=== PATIENT | male | born 1975 | race Caucasian/White ===

== ENCOUNTER 2018-01-10 08:57 | Emergency (ER) | payer OTHER, MEDICAID, SELFPAY ==
[2018-01-10 10:03] VITALS: BP 160/93; PULSE 96; RESP 16; TEMP 36.8; O2SAT 99
--- NOTE | 2018-01-10 10:27 | ED.LOWEXIN ---
HPI - Extremity Injury (Lower) General Chief Complaint: Extremity Injury, Lower Stated Complaint: left foot pain Time Seen by Provider: 01/10/18 10:03 Source: patient Mode of arrival: ambulatory Limitations: no limitations History of Present Illness HPI Narrative: Patient is a 42-year-old male who presents with left foot pain. He denies any injury. Says the arch of his foot starts hurting and pain goes up to his knee. He denies any Achilles tendon pain. His he does take prednisone 10 mg once a day. He normally wear supportive shoes but currently wearing cardiac. No numbness or tingling but sometimes he says his feet get numb. He denies any diabetes. Related Data Home Medications Medication Instructions Recorded Confirmed atorvastatin [Lipitor] 20 mg PO QDAY #0 07/17/17 potassium chloride [Klor-Con 8] 10 meq PO QDAY #0 07/17/17 prednisone 5 mg PO #0 07/17/17 tofacitinib [Xeljanz] 11 mg #0 07/17/17 prednisone 5 mg PO QDAY #0 08/21/17 atenolol 25 mg PO Q DAY #0 10/05/17 Previous Rx's Medication Instructions Recorded lisinopril 40 mg PO QDAY #30 tab 11/04/16 metoprolol tartrate 25 mg PO Q DAY #30 tab 05/18/17 ondansetron [Zofran ODT] 4 mg SUBLINGUAL Q6HP PRN #20 odt 08/22/17 meloxicam 7.5 mg PO DAILY #7 tab 01/10/18 Allergies Allergy/AdvReac Type Severity Reaction Status Date / Time adhesive [ADHESIVE] Allergy Mild Unverified 11/05/17 12:05 aspirin [ASPIRIN] Allergy Unknown Unverified 11/05/17 12:05 Review of Systems Review of Systems GENERAL: Denies chills,fever HEENT: Denies throat pain RESPIRATORY: Denies dyspnea, cough, wheezing CARDIOVASCULAR: Denies chest pain, palpitations GASTROINTESTINAL: Denies nausea, vomiting MUSCULOSKELETAL: Left foot pain as per HPI SKIN: No rash, no laceration, no pruritus NEUROLOGIC: Denies weakness, dizziness, headache, numbness 8 point review of systems is negative except for those stated above and HPI All systems reviewed & are unremarkable except as noted in HPI and below [facility] History Status post tonsillectomy and adenoidectomy Exam Initial Vital Signs Initial Vital Signs: Vital Signs Temperature 98.3 F 01/10/18 10:03 Pulse Rate 96 H 01/10/18 10:03 Respiratory Rate 16 01/10/18 10:03 Blood Pressure 160/93 H 01/10/18 10:03 Pulse Oximetry 99 01/10/18 10:03 GENERAL: Well-appearing, well-nourished and in no acute distress. CARDIOVASCULAR: peripheral pulses in tact, cap refill <2 sec RESPIRATORY: No respiratory distress, speaks in full sentences without difficulty EXTREMITIES: Normal range of motion, no clubbing or edema. Neurovascularly intact -left foot has no gross bony deformities. And the arch of the foot it is tender to touch. Achilles tendon is intact minimally tender to touch good flexion-extension of foot distal pedal pulse intact. NEUROLOGICAL: Cranial nerves II through XII grossly intact. Normal gait and speech. SKIN: Warm, dry, no petechiae, no rashes or lesions. Course Orders Ordered: Discontinued Medications Ketorolac Tromethamine (Toradol) 60 mg IM NOW ONE Stop: 01/10/18 10:27 Last Admin: 01/10/18 10:49 Dose: 60 mg Vital Signs - 8 hr 01/10/18 10:03 01/10/18 11:07 Temperature 98.3 F Pulse Rate 96 H 91 H Respiratory Rate 16 16 Blood Pressure 160/93 H Blood Pressure [Left Arm] 151/80 H Pulse Oximetry 99 99 Discharge Plan Departure Patient Disposition: Home, Self-Care Clinical Impression: Plantar fasciitis, left Discharge Date/Time: 01/10/18 11:24 Interventions: ED Discharge Assessment Last Done: 01/10/18 11:24 Instructions: DI for Plantar Fasciitis Activity Restrictions/Additional Instructions: *You have been diagnosed with left foot plantar fasciae *What to do: The increase activity recommend ruling foot with attendant wall to help loosen up the fascia *Continue to take medications as directed -Mobic of 1 pill once a day for 1 week *Follow up with your primary care provider in 2-3 days *Return to ER if you should have any new, worsening or concerning symptoms Prescriptions: New meloxicam 7.5 mg tablet 7.5 mg PO DAILY Qty: 7 RF: 0 No Action lisinopril 40 MG tablet 40 mg PO QDAY Qty: 30 RF: 0 metoprolol tartrate 25 MG tablet 25 mg PO Q DAY Qty: 30 RF: 0 atorvastatin [Lipitor] 20 MG tablet 20 mg PO QDAY Qty: 0 RF: 0 tofacitinib [Xeljanz] 5 MG tablet 11 mg Qty: 0 RF: 0 prednisone 5 MG tablet 5 mg PO Qty: 0 RF: 0 potassium chloride [Klor-Con 8] 8 MEQ tablet extended release 10 meq PO QDAY Qty: 0 RF: 0 prednisone 5 MG tablet 5 mg PO QDAY Qty: 0 RF: 0 ondansetron [Zofran ODT] 4 MG tablet,disintegrating 4 mg Sublingual Q6HP PRNQty: 20 RF: 0 atenolol 25 MG tablet 25 mg PO Q DAY Qty: 0 RF: 0
[2018-01-10] MEDS: KETOROLAC 60 MG/2 ML VIAL IM (10:49)
[2018-01-10 11:07] VITALS: BP 151/80; PULSE 91; RESP 16; O2SAT 99
== END 2018-01-10 11:24 | disposition home or self-care (01) ==
PROVIDERS: Emergency Provider Emergency Medicine; Family Provider Family Medicine; PCP Family Medicine
DX: M72.2 Plantar fascial fibromatosis (principal)
CPT/HCPCS: 96372; 99282; 99283; J1885

== ENCOUNTER 2018-04-19 18:56 | Emergency (ER) | payer OTHER, MEDICAID, SELFPAY ==
[2018-04-19] MEDS: ACTIVATED CHARCOAL 50 GM/240 ML PO (19:00)
[2018-04-19] MEDS: SODIUM CHLORIDE 0.9% 1,000 ML 150 ML IV (19:15)
[2018-04-19 19:22] LABS: Add Manual Diff / Slide Review NO; Basophils Percent Auto 0.5 % (0-2); Hematocrit 50.1 % (41-53); Hemoglobin 16.9 g/dL (13.5-17.5); Lymphocytes Percent Auto 17.9 % (25-40); Mean Corpuscular HGB Conc 33.8 % (30-36); Mean Corpuscular Volume 100.6 fL (80-100); Monocytes Percent Auto 7.6 % (3-14); Neutrophils Absolute Auto 3700 /uL (3000-5900); Platelet Count 235 X10^3/uL (150-400); Red Blood Cell Count 4.98 X10^6/uL (4.5-5.9); Red Cell Distribution Width 15.5 % (11.6-14.8); White Blood Cell Count 6.1 X10^3/uL (4.5-11.0)
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
[2018-04-19 19:34] LABS: Acetaminophen < 10 ug/mL (10-30); Alanine Aminotransferase 31 IU/L (21-72); Albumin 4.6 g/dL (3.5-5.0); Albumin Globulin Ratio 1.3 (1.0-2.8); Alkaline Phosphatase 90 U/L (38-126); Aspartate Aminotransferase 42 IU/L (17-59); Bilirubin Total 1.4 mg/dL (0.2-1.3); Blood Urea Nitrogen 9 mg/dL (9-20); Calcium 9.5 mg/dL (8.4-10.2); Carbon Dioxide 27 mmol/L (22-32); Chloride 104 mmol/L (98-107); Creatine Kinase 232 U/L (55-170); Estimated Glomerular Filt Rate > 60.0 mL/min (>60); Ethanol (ETOH) < 10 mg/dL; Globulin 3.6 g/dL (1.7-4.1); Glucose 133 mg/dL (70-100); HEMOLYSIS < 15 (0-50); Lipase 108 U/L (23-300); Potassium 3.8 mmol/L (3.4-5.1); Sodium 143 mmol/L (137-145); Total Protein 8.2 g/dL (6.3-8.2)
[2018-04-19 19:38] LABS: Salicylate < 1.0 mg/dL (<20)
[2018-04-19 19:45] LABS: Troponin I < 0.012 ng/mL (0.01-0.034)
[2018-04-19 19:46] VITALS: BP 157/94; PULSE 86; RESP 15; O2SAT 96
[2018-04-19 19:50] LABS: CKMB % Relative Index 1.2 % (1.5-5.0); Creatine Kinase MB 2.69 ng/mL (<2.37)
[2018-04-19 20:46] VITALS: BP 107/67; PULSE 66; RESP 16; O2SAT 95
[2018-04-19 21:00] VITALS: BP 104/62; PULSE 65; RESP 16; O2SAT 95
[2018-04-19] MEDS: ONDANSETRON 4 MG/2 ML INJ IV (21:03)
[2018-04-19 21:26] VITALS: TEMP 36.5
[2018-04-19 21:30] VITALS: BP 110/70; PULSE 62; RESP 18; O2SAT 94
[2018-04-19 23:00] VITALS: BP 93/66; PULSE 71; RESP 20; O2SAT 93
[2018-04-20 01:36] VITALS: BP 124/70; PULSE 65; RESP 15; TEMP 37.1; O2SAT 98
== END 2018-04-20 01:41 | disposition home or self-care (01) ==
PROVIDERS: Emergency Provider Emergency Medicine; Family Provider Family Medicine; PCP Family Medicine
DX: T44.7X2A Poisoning by beta-adrenoreceptor antagonists, intentional self-harm, initial encounter (principal)
CPT/HCPCS: 36591; 80053; 80076; 80320; 80329; 82550; 82553; 83605; 83690; 84484; 85025; 93005; 96361; 96374; 99285; 99291; G0480; J2405

== ENCOUNTER → 2018-07-03 15:00 | Outpatient (CLI) | payer OTHER, MEDICAID, SELFPAY ==
[2018-07-03 16:19] LABS: Urine Amphetamines Negative (Negative); Urine Barbiturates Negative (Negative); Urine Benzodiazepines Negative (Negative); Urine Cocaine Negative (Negative); Urine MDMA Negative (Negative); Urine Methadone Negative (Negative); Urine Methamphetamines Negative (Negative); Urine Morphine/Opi cutoff 2000 Negative (Negative); Urine Oxycodone Negative (Negative); Urine Phencyclidine Negative (Negative); Urine Tetrahydrocannabinol Negative (Negative); Urine Tricyclic Antidepressant Positive (Negative)
== END ==
PROVIDERS: Family Provider Family Medicine; PCP Family Medicine; Visit Provider Specialist/Technologist Athletic Trainer
DX: M05.79 Rheumatoid arthritis with rheumatoid factor of multiple sites without organ or systems involvement (principal); G89.4 Chronic pain syndrome
CPT/HCPCS: 36415; 80305

== ENCOUNTER 2018-07-31 09:44 | Emergency (ER) | payer OTHER, MEDICAID, SELFPAY ==
[2018-07-31 09:47] VITALS: BP 140/97; PULSE 92; RESP 14; TEMP 36.4; O2SAT 96; BMI 38.0
[2018-07-31] MEDS: ONDANSETRON 4 MG/2 ML INJ IV (10:16)
[2018-07-31] MEDS: SODIUM CHLORIDE 0.9% 1,000 ML 1000 ML IV (10:16)
--- NOTE | 2018-07-31 10:29 | ED_ITS ---
HPI - Headache General Chief Complaint: Headache Stated Complaint: migraine Time Seen by Provider: 07/31/18 10:13 Source: patient and old records reviewed Mode of arrival: ambulatory Limitations: no limitations History of Present Illness HPI Narrative: This is a 43-year-old male who comes to the emergency department with complaint of migraine. Patient states he has a history of migraines. He states they were worse in his 20s has been somewhat improved in his 30s but today is more like the migraines he had in his 20s. He states in the could a left posterior and then radiates to the left side of the head towards the face. Patient states he woke up within overnight. He has had nausea and some vomiting. He did take him Zofran at home as well as trying to take his arthritis medications without any success. Patient has not any fevers, no cold cough or congestion. He is not having any new weakness or loss of sensation. No chest pain, no shortness of breath. He is not having any other gastrointestinal issues. Patient states Imitrex has been helpful in the past but he believes he is not supposed to take that as it is supposed interfere with his regular medications. Related Data Home Medications Medication Instructions Recorded Confirmed leflunomide 20 mg PO QPM 04/19/18 07/31/18 levothyroxine 150 mcg PO QPM 04/19/18 07/31/18 potassium chloride 10 meq PO QPM 04/19/18 07/31/18 quetiapine 75 mg PO DAILY 04/19/18 07/31/18 sulfasalazine 1 g PO BID 04/19/18 07/31/18 adalimumab [Humira Pen] 40 mg Q2W 07/31/18 07/31/18 atorvastatin 20 mg PO QPM 07/31/18 07/31/18 furosemide 40 mg PO QPM 07/31/18 07/31/18 gabapentin 1,200 mg PO QPM 07/31/18 07/31/18 lisinopril 40 mg PO QPM 07/31/18 07/31/18 metoprolol tartrate 50 mg PO QPM 07/31/18 07/31/18 tramadol 100 mg PO BID 07/31/18 07/31/18 Allergies Allergy/AdvReac Type Severity Reaction Status Date / Time atenolol Allergy Severe Anaphylaxis Verified 07/31/18 09:52 tocilizumab [From Actemra] Allergy Severe Anaphylaxis Verified 07/31/18 09:52 adhesive [ADHESIVE] Allergy Mild Verified 04/19/18 19:55 aspirin [ASPIRIN] AdvReac Unknown Verified 07/31/18 09:52 sumatriptan [From Imitrex] AdvReac Unknown Verified 07/31/18 09:52 Review of Systems Review of Systems All systems reviewed & are unremarkable except as noted in HPI and below Constitutional Denies chills, Denies fever(s), Reports headache(s), Denies lethargy and Denies weakness Eyes Reports photophobia ENT Ears, Nose, Mouth, and Throat: Denies dizziness, Reports headache(s), Denies neck pain and Denies other (Facial droop) Cardiovascular Denies chest pain, Denies lightheadedness, Denies dyspnea and Denies dyspnea on exertion Respiratory Denies chest congestion, Denies cough, Denies dyspnea, Denies dyspnea on exertion and Denies wheezing Gastrointestinal Gastrointestinal: Denies abdominal pain, Denies change in bowel habits, Denies diarrhea, Reports nausea and Reports vomiting Genitourinary Denies difficulty urinating and Denies urinary incontinence Musculoskeletal Denies abnormal gait, Denies neck pain and Denies tingling Integumentary/Breasts Denies rash Neurologic Reports as per HPI, Denies abnormal speech, Denies abnormal gait, Denies confusion, Denies dizziness, Reports headache(s), Denies focal weakness, Denies tingling, Denies paresthesias and Denies weakness Psychiatric Denies confusion Allergic/Immunologic Denies wheezing PFSH Medical History Hypertension (Acute) Migraines (Chronic) Rheumatoid arthritis (Chronic) Surgical History Status post tonsillectomy and adenoidectomy Social History marital status: Smoking Status: Former smoker alcohol intake: current substance use type: does not use Exam Narrative Exam Narrative: GEN: well nourished, well appearing male, alert and oriented x 3 , patient appears to be in moderate distress. Patient is wearing sunglasses in a dark room when I arrive. HEENT: Atraumatic, pupils are equal round reactive to light, extraocular movements are intact, positive for mild photophobia, nares are clear, TMs are clear with no fluid, there is no conjunctival pallor. Throat is clear without any exudates, erythema, tonsillar enlargement or uvular deviation, no facial droop. HEART: Regular rate and rhythm without murmur, clicks, rubs. LUNGS:Lungs clear to auscultation, no wheezes, rales, crackles, chest moves symmetrically ABD:bowel sounds normal, soft, non-tender, no guarding, rebound, rigidity, no masses noted, no hepatosplenomegaly MSCL: Non-tender, no muscle atrophy, muscles strength 5/5 upper and lower extremities, full range of motion, normal gait NEURO:CN 2-12 intact, sensation normal, reflexes 2/4 upper and lower extremities. Normal speech. Initial Vital Signs Initial Vital Signs: Vital Signs Temperature 97.6 F 07/31/18 09:47 Pulse Rate 92 H 07/31/18 09:47 Respiratory Rate 14 07/31/18 09:47 Blood Pressure 140/97 H 07/31/18 09:47 Pulse Oximetry 96 07/31/18 09:47 Course Orders Ordered: Discontinued Medications Sodium Chloride (Normal Saline 0.9%) 1,000 mls @ 1,000 mls/hr IV BOLUS ONE Stop: 07/31/18 11:13 Last Infusion: 07/31/18 12:15 Dose: 0 mls/hr Admin: 07/31/18 10:16 Dose: 1,000 mls/hr Ketorolac Tromethamine (Toradol) 30 mg IV NOW ONE Stop: 07/31/18 10:23 Last Admin: 07/31/18 11:17 Dose: 30 mg Metoclopramide HCl (Reglan) 10 mg IV NOW ONE Stop: 07/31/18 11:44 Last Admin: 07/31/18 11:50 Dose: 10 mg Ondansetron HCl (Zofran) 4 mg IV NOW ONE Stop: 07/31/18 10:15 Last Admin: 07/31/18 10:16 Dose: 4 mg Vital Signs - 8 hr 07/31/18 12:56 Pulse Rate 77 Respiratory Rate 15 Blood Pressure [Right Arm] 128/64 Pulse Oximetry 96 MDM - Headache MDM Narrative Medical decision making narrative: Patient has a history of migraines, states this was more severe than his recent but is similar to when his 20s. Patient has some diastolic pressure is slightly elevated 97. He normally takes blood pressure medication. He states he was not able to take his regular medications secondary to nausea and vomiting. Patient states that he response to Imitrex. Patient given IV fluids, Zofran and Toradol he had some improvement but still has some headache present. Discussed trying some Reglan IV. Um afterwards patient states this was very helpful his pain is a 2/10 and he would like to return home. Discharge Plan Departure Patient Disposition: Home Clinical Impression: Migraine Discharge Date/Time: 07/31/18 13:02 Interventions: ED Discharge Assessment Last Done: 07/31/18 13:01 Instructions: DI for Migraine Activity Restrictions/Additional Instructions: Follow-up with your primary care physician in the next 5-7 days for recheck. Continue her home medications as prescribed. Return to the emergency department for worsening symptoms, sudden speech, vision , new weakness, numbness. If you're having sudden severe headaches, persistent vomiting, signs of dehydration, passing out or other new or concerning symptoms. Prescriptions: No Action quetiapine 25 mg Tablet 75 mg PO DAILY RF: 0 sulfasalazine 500 mg Tablet 1 g PO BID RF: 0 potassium chloride 10 mEq Tablet Extended Release 10 meq PO QPM RF: 0 leflunomide 20 mg Tablet 20 mg PO QPM RF: 0 levothyroxine 150 mcg Tablet 150 mcg PO QPM RF: 0 furosemide 40 mg tablet 40 mg PO QPM RF: 0 gabapentin 600 mg tablet 1,200 mg PO QPM RF: 0 atorvastatin 20 mg tablet 20 mg PO QPM RF: 0 tramadol 50 mg tablet 100 mg PO BID RF: 0 adalimumab [Humira Pen] 40 mg/0.4 mL pen injector kit 40 mg Q2W RF: 0 lisinopril 40 MG tablet 40 mg PO QPM RF: 0 metoprolol tartrate 25 MG tablet 50 mg PO QPM RF: 0
[2018-07-31] MEDS: KETOROLAC 60 MG/2 ML VIAL 30 MG IV (11:17)
[2018-07-31] MEDS: METOCLOPRAMIDE 10 MG/2 ML INJ IV (11:50)
[2018-07-31 12:56] VITALS: BP 128/64; PULSE 77; RESP 15; O2SAT 96
== END 2018-07-31 13:02 | disposition home or self-care (01) ==
PROVIDERS: Emergency Provider Emergency Medicine; Family Provider Family Medicine; PCP Family Medicine
DX: G43.909 Migraine, unspecified, not intractable, without status migrainosus (principal)
CPT/HCPCS: 36591; 96361; 96374; 96375; 99283; 99284; J1885; J2405; J2765

== ENCOUNTER → 2019-03-24 11:13 | Outpatient (CLI) | payer OTHER, MEDICAID, SELFPAY ==
[2019-03-24 11:27] LABS: Bacteria Urine None Seen; RBC Urine None Seen (0-5/HPF)
[2019-03-24 12:17] LABS: Appearance Urine UA CLEAR; Bilirubin Urine UA NEGATIVE (NEGATIVE); Glucose Urine UA NEGATIVE (Negative); Ketones Urine UA NEGATIVE (NEGATIVE); Leukocyte Esterase Urine UA NEGATIVE (NEGATIVE); Nitrite Urine UA NEGATIVE (Negative); Occult Blood Urine UA NEGATIVE (Negative); Protein Urine UA NEGATIVE (Negative); Urobilinogen Urine UA 0.2 E.U./dL (0.2); pH Urine UA 6.5 (4.5-8.0)
[2019-03-24 12:23] LABS: Color Urine UA Amber
[2019-03-24 12:36] LABS: Alanine Aminotransferase 26 IU/L (21-72); Albumin 4.1 g/dL (3.5-5.0); Albumin Globulin Ratio 1.3 (1.0-2.8); Alkaline Phosphatase 78 U/L (38-126); Aspartate Aminotransferase 39 IU/L (17-59); Bilirubin Total 0.9 mg/dL (0.2-1.3); Blood Urea Nitrogen 17 mg/dL (9-20); Calcium 9.1 mg/dL (8.4-10.2); Carbon Dioxide 26 mmol/L (22-32); Chloride 103 mmol/L (98-107); Estimated Glomerular Filt Rate > 60.0 mL/min (>60); Globulin 3.2 g/dL (1.7-4.1); Glucose 98 mg/dL (70-100); HEMOLYSIS < 15 (0-50); Potassium 3.8 mmol/L (3.4-5.1); Sodium 138 mmol/L (137-145); Total Protein 7.3 g/dL (6.3-8.2)
[2019-03-24 12:52] LABS: Culture Indicated Urine Cult Not Indicated; Mucus Urine 1+ (Negative); WBC Urine 0-1/HPF (0-5/HPF)
[2019-03-24 13:41] LABS: Lithium < 0.2 mmol/L (0.6-1.2)
[2019-03-27 15:19] LABS: PSA Total 0.44 ng/mL (< 4.01)
== END ==
PROVIDERS: PCP Family Medicine; Visit Provider Family Medicine
DX: R34 Anuria and oliguria (principal); R60.9 Edema, unspecified; G89.4 Chronic pain syndrome; F31.9 Bipolar disorder, unspecified
CPT/HCPCS: 36415; 80053; 80178; 81001; 84153; 84154

== ENCOUNTER → 2019-04-20 07:08 | Outpatient (CLI) | payer OTHER, MEDICAID, SELFPAY ==
[2019-04-20 08:49] LABS: Lithium < 0.2 mmol/L (0.6-1.2)
== END ==
PROVIDERS: PCP Family Medicine; Visit Provider Family Medicine
DX: F31.9 Bipolar disorder, unspecified (principal)
CPT/HCPCS: 36415; 80178

== ENCOUNTER → 2019-08-02 16:17 | Outpatient (CLI) | payer OTHER, MEDICAID, SELFPAY ==
[2019-08-02 17:49] LABS: BUN Creatinine Ratio 12.2 (6-22); Blood Urea Nitrogen 11 mg/dL (9-20); Calcium 9.4 mg/dL (8.4-10.2); Carbon Dioxide 30 mmol/L (22-32); Chloride 104 mmol/L (98-107); Estimated Glomerular Filt Rate > 60.0 mL/min (>60); Glucose 80 mg/dL (70-100); HEMOLYSIS < 15 (0-50); Sodium 140 mmol/L (137-145)
[2019-08-02 18:12] LABS: Lithium < 0.2 mmol/L (0.6-1.2)
== END ==
PROVIDERS: PCP Family Medicine; Visit Provider Family Medicine
DX: F31.9 Bipolar disorder, unspecified (principal)
CPT/HCPCS: 36415; 80048; 80178

== ENCOUNTER 2019-08-30 09:01 | Emergency (ER) | payer OTHER, MEDICAID, SELFPAY ==
[2019-08-30 09:13] VITALS: BP 163/90; PULSE 111; RESP 18; TEMP 36.3; O2SAT 97; BMI 41.8
[2019-08-30 11:00] VITALS: PULSE 80
--- NOTE | 2019-08-30 11:15 | DI.RAD.S_ITS ---
PROCEDURE: XR FOOT LT MIN 3V INDICATIONS: Left foot pain TECHNIQUE: 3 views of the foot were acquired. COMPARISON: None. FINDINGS: Bones: No fractures or dislocations. No suspicious bony lesions. Soft tissues: No tibiotalar joint effusion. Achilles tendon appears normal. IMPRESSION: Source of pain is not identified. Dictated by: Mateo Eason M.D. on 08/30/2019 at 12:05 Approved by: Mateo Eason M.D. on 08/30/2019 at 12:08
[2019-08-30] MEDS: KETOROLAC 60 MG/2 ML VIAL 30 MG IM (11:21)
--- NOTE | 2019-08-30 11:26 | ED_ITS ---
HPI - Extremity Problem <Marie JosephDAVID - Last Filed: 08/30/19 13:57> General Chief complaint: Extremity Problem,Nontraumatic Stated complaint: left foot pain Time Seen by Provider: 08/30/19 10:56 Source: patient and family Mode of arrival: Wheelchair History of Present Illness HPI Narrative: 44yo male with a history of rheumatoid arthritis, osteoarthritis, and chronic pain, patient presents to emergency department complaining of left foot pain. He states this started yesterday and felt a sharp stabbing pain on the bottom of his foot and his arch, he states this pain radiates up to his knee occasionally. The pain is worse with movement and weight-bearing, patient denies any alleviating factors. Patient states he took tramadol, gabapentin, and prednisone 20mg to help alleviate the pain this morning, but this did not help. Patient denies any trauma to the area, he denies any twisting or falls. Patient denies any previous injury to his foot. Patient denies redness, sores, fevers, chills, knee pain, nausea, vomiting, diarrhea, dizziness, chest pain, or shortness of breath. He denies any history of blood clots. He denies any calf pain. Related Data Home Medications Medication Instructions Recorded Confirmed leflunomide 20 mg PO QPM 04/19/18 08/30/19 levothyroxine 150 mcg PO QPM 04/19/18 08/30/19 potassium chloride 10 meq PO QPM 04/19/18 08/30/19 sulfasalazine 500 mg PO 6XD 04/19/18 08/30/19 adalimumab [Humira Pen] 40 mg Q2W 07/31/18 08/30/19 atorvastatin 20 mg PO QPM 07/31/18 08/30/19 furosemide 40 mg PO QPM 07/31/18 08/30/19 lisinopril 40 mg PO QPM 07/31/18 08/30/19 metoprolol tartrate 50 mg PO QPM 07/31/18 08/30/19 tramadol 100 mg PO TID 07/31/18 08/30/19 lithium carbonate 150 mg PO BID 08/30/19 08/30/19 pregabalin 200 mg PO BID 08/30/19 08/30/19 quetiapine 300 mg PO DAILY 08/30/19 08/30/19 trazodone 50 mg PO DAILY 08/30/19 08/30/19 Previous Rx's Medication Instructions Recorded prednisone 40 mg PO DAILY 5 Days #10 tab 08/30/19 Allergies Allergy/AdvReac Type Severity Reaction Status Date / Time atenolol Allergy Severe Anaphylaxis Verified 08/30/19 09:13 tocilizumab [From Actemra] Allergy Severe Anaphylaxis Verified 08/30/19 09:13 adhesive [ADHESIVE] Allergy Mild Verified 08/30/19 09:13 aspirin [ASPIRIN] AdvReac Unknown Verified 08/30/19 09:13 sumatriptan [From Imitrex] AdvReac Unknown Verified 08/30/19 09:13 Review of Systems <DAVID Cortes - Last Filed: 08/30/19 13:57> Review of Systems Narrative: REVIEW OF SYSTEMS: GENERAL: Denies fever or chills. HENT: No head trauma. EYES: No double vision or vision loss. CARDIOVASCULAR: No chest pain or syncope. RESPIRATORY: No shortness of breath or cough. GASTROINTESTINAL: No nausea, vomiting, diarrhea, or constipation. GENITOURINARY: No flank pain or dysuria. MUSCULOSKELETAL: Complains of left foot pain, see HPI. INTEGUMENTARY: No rash, lesions, or pruritus. NEURO: No numbness, tingling. PSYCH: No behavior or mood changes. Patient History <DAVID Cortes - Last Filed: 08/30/19 13:57> Medical History Hypertension (Acute) Migraines (Chronic) Rheumatoid arthritis (Chronic) Surgical History Status post tonsillectomy and adenoidectomy Social History marital status: Smoking Status: Former smoker alcohol intake: current substance use type: does not use Smoking Status: Former smoker alcohol intake frequency: 0-2 drinks per day Substance Use Type: does not use Exam <DAVID Cortes - Last Filed: 08/30/19 13:57> Initial Vital Signs Initial Vital Signs: Vital Signs Temperature 97.4 F L 08/30/19 09:13 Pulse Rate 111 H 08/30/19 09:13 Respiratory Rate 18 08/30/19 09:13 Blood Pressure 163/90 H 08/30/19 09:13 Pulse Oximetry 97 08/30/19 09:13 PHYSICAL EXAMINATION: GENERAL: Well groomed, alert, and cooperative. Answers questions promptly and appropriately. Vital signs noted. HENT: Normocephalic, atraumatic. EYES: Symmetrical, sclera white, no periorbital swelling. CARDIOVASCULAR: S1 and S2 sounds normal. Regular rate and rhythm, no murmurs, clicks, or bruits. No pedal edema. RESPIRATORY: Normal respiratory rate, trachea midline, airway patent. No stridor, nasal flaring or accessory muscle use. Lungs are clear in all harper. MUSCULOSKELETAL: Tenderness to palpation of plantar aspect of left arch of foot. No erythema, ecchymosis, or lesions. Very minute amount of swelling noted to the top of left foot, this area slightly tender to palpation. No calf tenderness, no tibia or knee tenderness. Full range of motion of ankle, equal dorsiflexion and plantar flexion to both feet bilaterally. Normal gait and coordination. Equal tone and mass bilaterally. EXTREMITIES: CMS intact. Pedal pulses 2+ and intact bilaterally. 1+ nonpitting edema noted to both lower extremities bilaterally. SKIN: Warm, dry, soft, appropriate color for ethnicity. No lesions, rashes, or wounds. NEURO: Alert and Oriented X 3. No sensory deficits. PSYCH: Appropriate affect and mood. <Yanira Lopez DO - Last Filed: 08/31/19 13:09> Initial Vital Signs Initial Vital Signs: Vital Signs Temperature 97.4 F L 08/30/19 09:13 Pulse Rate 111 H 08/30/19 09:13 Respiratory Rate 18 08/30/19 09:13 Blood Pressure 163/90 H 08/30/19 09:13 Pulse Oximetry 97 08/30/19 09:13 Scores <DAVID Cortes - Last Filed: 08/30/19 13:57> Wells' Criteria for DVT Active Cancer (Treatment within 6 months): No Bedridden recently >3 days or major surgery within 4 weeks: No Calf Swelling >3cm compared to other leg: No Collateral (nonvericose) superficial veins present: No Entire leg swollen: No Localized tenderness along the deep vein system: No Pitting edema, confined to symtomatic leg: No Paralysis, paresis, or recent plaster immobilization of ext: No Previously documented DVT: No Alternative dx to DVT as likely or more likely: No Wells' criteria for DVT: 0 Course <DAVID Cortes - Last Filed: 08/30/19 13:57> Course Course Narrative: X-ray was taken to rule out bony abnormalities. Toradol was given to help with pain. Orders Ordered: Discontinued Medications Ketorolac Tromethamine (Toradol) 30 mg IM NOW ONE Stop: 08/30/19 11:08 Last Admin: 08/30/19 11:21 Dose: 30 mg Documented by: MARYCARMEN Consultations Consultation #1: Staffed with Dr. Lopez. Vital Signs Vital signs: Vital Signs - 8 hr 08/30/19 09:13 08/30/19 11:00 08/30/19 11:29 Temperature 97.4 F L Pulse Rate 111 H 88 Pulse Rate [Left Dorsalis Pedis] 80 Respiratory Rate 18 18 Blood Pressure 163/90 H Blood Pressure [Left Arm] 152/78 H Pulse Oximetry 97 98 08/30/19 12:32 Temperature Pulse Rate 82 Pulse Rate [Left Dorsalis Pedis] Respiratory Rate 19 Blood Pressure Blood Pressure [Left Arm] 152/80 H Pulse Oximetry 96 <Yanira Lopez DO - Last Filed: 08/31/19 13:09> Orders Ordered: Discontinued Medications Ketorolac Tromethamine (Toradol) 30 mg IM NOW ONE Stop: 08/30/19 11:08 Last Admin: 08/30/19 11:21 Dose: 30 mg Documented by: MARYCARMEN Vital Signs Vital signs: Vital Signs - 8 hr 08/30/19 09:13 08/30/19 11:00 08/30/19 11:29 Temperature 97.4 F L Pulse Rate 111 H 88 Pulse Rate [Left Dorsalis Pedis] 80 Respiratory Rate 18 18 Blood Pressure 163/90 H Blood Pressure [Left Arm] 152/78 H Pulse Oximetry 97 98 08/30/19 12:32 Temperature Pulse Rate 82 Pulse Rate [Left Dorsalis Pedis] Respiratory Rate 19 Blood Pressure Blood Pressure [Left Arm] 152/80 H Pulse Oximetry 96 MDM - Extremity (Nontraumatic) <DAVID Cortes - Last Filed: 08/30/19 13:57> Medical Records Attestation: I reviewed the patient's medical records. Lab Data Attestation: I reviewed the patient's lab results. Imaging Data Extremity x-ray #1: Radiologist's Impression: Sarah MANSOOR [id number] XRay Report Signed Patient: Cristian Lloyd [facility]#: [id number] : 1975Acct:[id number] Age/Sex: 44 / MDate of Service: 08/30/19 Loc: ED Accession Number: [id number] Procedure: XR foot LT min 3V Ordering Provider: Marie Joseph PROCEDURE: XR FOOT LT MIN 3V INDICATIONS: Left foot pain TECHNIQUE: 3 views of the foot were acquired. COMPARISON: None. FINDINGS: Bones: No fractures or dislocations. No suspicious bony lesions. Soft tissues: No tibiotalar joint effusion. Achilles tendon appears normal. IMPRESSION: Source of pain is not identified. Dictated by: Mateo Eason M.D. on 08/30/2019 at 12:05 Approved by: Mateo Eason M.D. on 08/30/2019 at 12:08 [facility] Narrative Medical decision making narrative: 44-year-old male with a history of RA presenting for pain in the bottom of his left foot, very minor swelling noted to the top of his foot. X-rays negative for any fractures. Differential includes peripheral neuropathy versus a start of an RA exacerbation. Less likely cellulitis due to lack of erythema or swelling, less likely DVT due to low risk factors, no history of DVT, lack of calf pain, lack of significant swelling, less likely strain due to lack of reported trauma or falls. Patient was given a higher dose of prednisone for the next 5 days to help with symptoms. Patient was encouraged follow up with his primary care provider in the next 1-2 weeks for further evaluation and discussion of pain management. Strict return precautions given for new or worsening symptoms. Patient agreed with plan of care and verbalized understanding. Patient requested more pain medication, we had discussion regarding lack of significant changes and increased side effects and danger of mixing multiple medications. He was encouraged to continue taking his tramadol and gabapentin as prescribed. Discharge Plan Departure Patient Disposition: Home Clinical Impression: Acute pain of left foot Discharge Date/Time: 08/30/19 12:35 Instructions: DI for Rheumatoid Arthritis Activity Restrictions/Additional Instructions: Thank you for entrusting me with your care today. As discussed, your x-ray is negative. I suspect this may be the beginning of a rheumatoid arthritis flare. I prescribed you prednisone, please take this for the next few days, this was sent to [facility] in [place]. Schedule an appointment with a banquet director in the next 1-2 weeks for further evaluation. Return emergency department for any worsening symptoms such as increased redness, severe swelling, calf pain, shortness of breath, dizziness, high fevers, or other concerns. Prescriptions: New prednisone 20 mg tablet 40 mg PO DAILY 5 Days Qty: 10 RF: 0 No Action sulfasalazine 500 mg Tablet 500 mg PO 6XD RF: 0 potassium chloride 10 mEq Tablet Extended Release 10 meq PO QPM RF: 0 leflunomide 20 mg Tablet 20 mg PO QPM RF: 0 levothyroxine 150 mcg Tablet 150 mcg PO QPM RF: 0 furosemide 40 mg tablet 40 mg PO QPM RF: 0 atorvastatin 20 mg tablet 20 mg PO QPM RF: 0 tramadol 50 mg tablet 100 mg PO TID RF: 0 Humira Pen 40 mg/0.4 mL pen injector kit 40 mg Q2W RF: 0 lisinopril 40 MG tablet 40 mg PO QPM RF: 0 metoprolol tartrate 25 MG tablet 50 mg PO QPM RF: 0 trazodone 50 mg tablet 50 mg PO DAILY RF: 0 quetiapine 100 mg tablet 300 mg PO DAILY RF: 0 lithium carbonate 150 mg capsule 150 mg PO BID RF: 0 pregabalin 200 mg capsule 200 mg PO BID RF: 0 Referrals: Remington Izaguirre [Primary Care Provider] - Stand Alone Forms: Work Release Note
[2019-08-30 11:29] VITALS: BP 152/78; PULSE 88; RESP 18; O2SAT 98
[2019-08-30 12:32] VITALS: BP 152/80; PULSE 82; RESP 19; O2SAT 96
== END 2019-08-30 12:35 | disposition home or self-care (01) ==
PROVIDERS: Emergency Provider Nurse Practitioner; PCP Family Medicine
DX: M79.672 Pain in left foot (principal)
CPT/HCPCS: 73630; 96372; 99283; J1885

== ENCOUNTER 2019-10-24 14:01 | Emergency (ER) | payer OTHER, MEDICAID, SELFPAY ==
[2019-10-24 14:32] VITALS: BP 137/64; PULSE 73; RESP 18; TEMP 36.5; O2SAT 95
--- NOTE | 2019-10-24 14:47 | ED.EXTPRO ---
HPI - Extremity Problem <aMrie JosephDAVID - Last Filed: 10/24/19 15:48> General Chief complaint: Extremity Problem,Nontraumatic Stated complaint: right hip pain Time Seen by Provider: 10/24/19 14:04 Source: patient and family Mode of arrival: Family Vehicle Limitations: no limitations History of Present Illness HPI Narrative: 44yo male with a history of RA, spinal stenosis, and chronic back pain, presents to the ED complaining of right hip/sciatica pain that started 2 days ago. He states he woke 2 days ago noticed a sharp stabbing pain that started in his buttocks and radiated down the outside of his leg past his knee. He states the pain was a 7-9/10 as worse with movement and weight-bearing at times. Patient states I took two oxycodone which did not help today. He states that he takes Humira as well. Patient also states ?Toradol does not work on me ?. Patient denies any other symptoms such as numbness, tingling, decreased range of motion, trauma, redness, swelling, nausea, vomiting, diarrhea, chest pain, shortness of breath, fevers, or any other concerns. He states ?this does not feel like an RA episode. Related Data Home Medications Medication Instructions Recorded Confirmed leflunomide 20 mg PO QPM 04/19/18 08/30/19 levothyroxine 150 mcg PO QPM 04/19/18 08/30/19 potassium chloride 10 meq PO QPM 04/19/18 08/30/19 sulfasalazine 500 mg PO 6XD 04/19/18 08/30/19 adalimumab [Humira Pen] 40 mg Q2W 07/31/18 08/30/19 atorvastatin 20 mg PO QPM 07/31/18 08/30/19 furosemide 40 mg PO QPM 07/31/18 08/30/19 lisinopril 40 mg PO QPM 07/31/18 08/30/19 metoprolol tartrate 50 mg PO QPM 07/31/18 08/30/19 tramadol 100 mg PO TID 07/31/18 08/30/19 lithium carbonate 150 mg PO BID 08/30/19 08/30/19 pregabalin 200 mg PO BID 08/30/19 08/30/19 quetiapine 300 mg PO DAILY 08/30/19 08/30/19 trazodone 50 mg PO DAILY 08/30/19 08/30/19 Previous Rx's Medication Instructions Recorded cyclobenzaprine 10 mg PO BID #25 tab 10/24/19 prednisone 50 mg PO DAILY 5 Days #5 tab 10/24/19 Allergies Allergy/AdvReac Type Severity Reaction Status Date / Time atenolol Allergy Severe Anaphylaxis Verified 10/24/19 14:37 tocilizumab [From Actemra] Allergy Severe Anaphylaxis Verified 10/24/19 14:37 adhesive [ADHESIVE] Allergy Mild Verified 10/24/19 14:37 aspirin [ASPIRIN] AdvReac Unknown Verified 10/24/19 14:37 sumatriptan [From Imitrex] AdvReac Unknown Verified 10/24/19 14:37 Review of Systems <DAVID Cortes - Last Filed: 10/24/19 15:48> Review of Systems Narrative: REVIEW OF SYSTEMS: GENERAL: Denies fever or chills. HENT: No head trauma. EYES: No double vision or vision loss. CARDIOVASCULAR: No chest pain or syncope. RESPIRATORY: No shortness of breath or cough. GASTROINTESTINAL: No nausea, vomiting, diarrhea, or constipation. GENITOURINARY: No flank pain or dysuria. MUSCULOSKELETAL: Complains of right hip/buttock pain, see HPI. INTEGUMENTARY: No rash, lesions, or pruritus. NEURO: No numbness, tingling. PSYCH: No behavior or mood changes. Patient History <DAVID Cortes - Last Filed: 10/24/19 15:48> Medical History Hypertension (Acute) Migraines (Chronic) Rheumatoid arthritis (Chronic) Surgical History Status post tonsillectomy and adenoidectomy Social History marital status: Smoking Status: Former smoker alcohol intake: current substance use type: does not use Smoking Status: Former smoker alcohol intake frequency: 0-2 drinks per day Substance Use Type: does not use Exam <DAVID Cortes - Last Filed: 10/24/19 15:48> Initial Vital Signs Initial Vital Signs: Vital Signs Temperature 97.7 F 10/24/19 14:32 Pulse Rate 73 10/24/19 14:32 Respiratory Rate 18 10/24/19 14:32 Blood Pressure 137/64 10/24/19 14:32 Pulse Oximetry 95 10/24/19 14:32 PHYSICAL EXAMINATION: GENERAL: Well groomed, alert, and cooperative. Answers questions promptly and appropriately. Vital signs noted. HENT: Normocephalic, atraumatic. EYES: Symmetrical, sclera white, no periorbital swelling. CARDIOVASCULAR: S1 and S2 sounds normal. Regular rate and rhythm, no murmurs, clicks, or bruits. No pedal edema. RESPIRATORY: Normal respiratory rate, trachea midline, airway patent. No stridor, nasal flaring or accessory muscle use. Lungs are clear in all harper. MUSCULOSKELETAL: Tenderness to left sciatica pain, positive straight leg test, increased pain with movement. No erythema, swelling, increased temp, or tenderness. Normal gait and coordination. Equal tone and mass bilaterally. No spinal tenderness or deformities. EXTREMITIES: CMS intact. No pedal edema. SKIN: Warm, dry, soft, appropriate color for ethnicity. No lesions, rashes, or wounds. NEURO: Alert and Oriented X 3. No sensory deficits. PSYCH: Appropriate affect and mood. <Sang Albright MD - Last Filed: 10/24/19 19:20> Initial Vital Signs Initial Vital Signs: Vital Signs Temperature 97.7 F 10/24/19 14:32 Pulse Rate 73 10/24/19 14:32 Respiratory Rate 18 10/24/19 14:32 Blood Pressure 137/64 10/24/19 14:32 Pulse Oximetry 95 10/24/19 14:32 Course <DAVID Cortes - Last Filed: 10/24/19 15:48> Vital Signs Vital signs: Vital Signs - 8 hr 10/24/19 14:32 Temperature 97.7 F Pulse Rate 73 Respiratory Rate 18 Blood Pressure 137/64 Pulse Oximetry 95 <Sang Albright MD - Last Filed: 10/24/19 19:20> Vital Signs Vital signs: Vital Signs - 8 hr 10/24/19 14:32 Temperature 97.7 F Pulse Rate 73 Respiratory Rate 18 Blood Pressure 137/64 Pulse Oximetry 95 MDM - Extremity (Nontraumatic) <DAVID Cortes - Last Filed: 10/24/19 15:48> Medical Records Attestation: I reviewed the patient's medical records. Lab Data Attestation: I reviewed the patient's lab results. [facility] Narrative Medical decision making narrative: 44yo male with a history of multiple spinal issues, chronic back pain, and RA presenting to the emergency department for what appears to be right sided sciatica as patient exhibits tenderness over the sciatic region, worsening pain with straight leg raise, and reports of a ?sharp shooting pain ?. I discussed with patient options to treat sciatica. We collectively decided on a burst of prednisone to help with inflammation and nerve irritation. He is also given muscle relaxers. Patient was counseled extensively to avoid using narcotics and muscle relaxers at the same time due to respiratory depression. He was encouraged to follow up with his street roller engineer in the next week for further evaluation and discussion of pain management. Less likely septic joint due to the fact the patient continues to have adequate range of motion, no swelling, redness, increased tenderness, or fevers. Less likely RA exacerbation as patient states this feels different, patient reports sharp shooting pain versus dull aching, lack of swelling or erythema, and area of tenderness. Less likely fracture due to lack of trauma, ability to bear weight, and location of pain. Strict return precautions given and follow-up instructions discussed. Patient agreed to plan of care verbalized understanding. Discharge Plan Departure Patient Disposition: Home Clinical Impression: Sciatica Qualifiers: Laterality: right Qualified Code(s): M54.31 - Sciatica, right side Discharge Date/Time: 10/24/19 14:53 Instructions: DI for Sciatica Activity Restrictions/Additional Instructions: Thank you for entrusting me with your care today. As discussed, your pain is most likely due to irritation from your sciatica nerve. I have given you a prednisone burst, please take this as directed. I have also given you a muscle relaxer, this can cause sedation, do not drive while using this medication. Follow-up with your street roller engineer in the next 1-2 weeks for further evaluation continue discussion about treatment. Remember, there is a fine line between too little and too much activity for this condition. Please use heat, ice, and gentle stretches as well. Return emergency department for any new or worsening symptoms such as high fevers, severe abdominal pain, uncontrollable vomiting, shortness of breath, chest pain, or any other concerns. Prescriptions: New prednisone 50 mg tablet 50 mg PO DAILY 5 Days Qty: 5 RF: 0 cyclobenzaprine 10 mg tablet 10 mg PO BID Qty: 25 RF: 0 No Action sulfasalazine 500 mg Tablet 500 mg PO 6XD RF: 0 potassium chloride 10 mEq Tablet Extended Release 10 meq PO QPM RF: 0 leflunomide 20 mg Tablet 20 mg PO QPM RF: 0 levothyroxine 150 mcg Tablet 150 mcg PO QPM RF: 0 furosemide 40 mg tablet 40 mg PO QPM RF: 0 atorvastatin 20 mg tablet 20 mg PO QPM RF: 0 tramadol 50 mg tablet 100 mg PO TID RF: 0 Humira Pen 40 mg/0.4 mL pen injector kit 40 mg Q2W RF: 0 lisinopril 40 MG tablet 40 mg PO QPM RF: 0 metoprolol tartrate 25 MG tablet 50 mg PO QPM RF: 0 trazodone 50 mg tablet 50 mg PO DAILY RF: 0 quetiapine 100 mg tablet 300 mg PO DAILY RF: 0 lithium carbonate 150 mg capsule 150 mg PO BID RF: 0 pregabalin 200 mg capsule 200 mg PO BID RF: 0 Referrals: Remington Izaguirre [Primary Care Provider] -
== END 2019-10-24 14:53 | disposition home or self-care (01) ==
PROVIDERS: Emergency Provider Nurse Practitioner; PCP Family Medicine
DX: M54.31 Sciatica, right side (principal)
CPT/HCPCS: 99281

== ENCOUNTER 2019-10-26 11:43 | Emergency (ER) | payer OTHER, MEDICAID, SELFPAY ==
[2019-10-26 11:54] VITALS: BP 146/93; PULSE 90; RESP 13; TEMP 36.6; O2SAT 98
--- NOTE | 2019-10-26 11:54 | DI.RAD.S_ITS ---
PROCEDURE: XR LUMBAR SPINE 2-3V INDICATIONS: pain TECHNIQUE: 3 views of the lumbar spine were acquired. COMPARISON: [facility], CR, XR LUMBAR SPINE WITH OBLIQUES, 09/02/2019, 10:41. FINDINGS: Bones: There are 5 lumbar-type vertebral bodies. The lowest intervertebral disk space is designated as L5-S1. The vertebral body heights are well-maintained without evidence to suggest an acute compression fracture. The bone mineralization is within normal limits. Mild degenerative changes of the lumbar spine are identified in the more prominent involving the lower lumbar facet joints, unchanged. Scattered small anterior disc osteophyte complexes are present. Alignment of the lumbar spine is unchanged. Soft tissues: The soft tissues of the imaged abdomen and pelvis are within normal limits. IMPRESSION: Mild degenerative changes of the lumbar spine. No displaced fractures. Dictated by: Wayne Santos M.D. on 10/26/2019 at 11:23 Approved by: Wayne Santos M.D. on 10/26/2019 at 11:32
--- NOTE | 2019-10-26 11:54 | DI.RAD.S_ITS ---
PROCEDURE: XR PELVIS 1-2V INDICATIONS: right hip pain TECHNIQUE: 1 view(s) of the pelvis acquired. COMPARISON: [facility], CT, CT ABDOMEN PELVIS WITH CONTRAST, 09/21/2017, 2:23. FINDINGS: Bones: No displaced fractures or dislocations. No suspicious bony lesions. Mild degenerative changes are present. Soft tissues: Visualized bowel gas pattern is normal. No suspicious soft tissue calcifications. IMPRESSION: 1. No displaced pelvic fractures are evident. 2. Mild degenerative changes of the hips. Dictated by: Wayne Santos M.D. on 10/26/2019 at 11:33 Approved by: Wayne Santos M.D. on 10/26/2019 at 11:34
[2019-10-26] MEDS: CYCLOBENZAPRINE 10 MG TABLET PO (12:20)
[2019-10-26] MEDS: LIDOCAINE PATCH 1 EACH ADH..PATCH TOP (12:20)
[2019-10-26] MEDS: KETOROLAC 60 MG/2 ML VIAL IM (12:20)
[2019-10-26 12:53] VITALS: BP 160/76; PULSE 77; RESP 16; O2SAT 98
--- NOTE | 2019-10-26 12:53 | ED_ITS ---
HPI - Extremity Problem <Georgina GauthierDAGOP-BC - Last Filed: 10/26/19 15:29> General Chief complaint: Extremity Problem,Nontraumatic Stated complaint: EXCRUTIATING PAIN Time Seen by Provider: 10/26/19 11:48 Source: patient and family Mode of arrival: Wheelchair Limitations: no limitations History of Present Illness HPI Narrative: Former smoker who presents with a chief complaint of excruciating back pain. He was seen and evaluated at this facility on 10/24/2027 diagnosis sciatica. He states he took his prednisone and muscle relaxers as instructed, and states he is still in 10/10 pain. He states that he drink 9 glasses of wine last night in order to help sleep. He states he is using his tramadol that he has prescribed for other reasons. He denies any incontinence of bowel, inco ntinence of bladder, saddle anesthesia numbness or tingling. He states he has not followed up with primary care provider since his visit a few days ago. Patient states that he took tramadol at approximately 6:00 a.m., nothing else today. Related Data Home Medications Medication Instructions Recorded Confirmed leflunomide 20 mg PO QPM 04/19/18 08/30/19 levothyroxine 150 mcg PO QPM 04/19/18 08/30/19 potassium chloride 10 meq PO QPM 04/19/18 08/30/19 sulfasalazine 500 mg PO 6XD 04/19/18 08/30/19 adalimumab [Humira Pen] 40 mg Q2W 07/31/18 08/30/19 atorvastatin 20 mg PO QPM 07/31/18 08/30/19 furosemide 40 mg PO QPM 07/31/18 08/30/19 lisinopril 40 mg PO QPM 07/31/18 08/30/19 metoprolol tartrate 50 mg PO QPM 07/31/18 08/30/19 tramadol 100 mg PO TID 07/31/18 08/30/19 lithium carbonate 150 mg PO BID 08/30/19 08/30/19 pregabalin 200 mg PO BID 08/30/19 08/30/19 quetiapine 300 mg PO DAILY 08/30/19 08/30/19 trazodone 50 mg PO DAILY 08/30/19 08/30/19 Previous Rx's Medication Instructions Recorded cyclobenzaprine 10 mg PO BID #25 tab 10/24/19 prednisone 50 mg PO DAILY 5 Days #5 tab 10/24/19 hydrocodone-acetaminophen 1 tab PO Q4-6H PRN #10 tab 10/26/19 ketorolac 10 mg PO TID PRN 5 Days tab 10/26/19 lidocaine 1 patch TOP DAILY PRN #15 each 10/26/19 Allergies Allergy/AdvReac Type Severity Reaction Status Date / Time atenolol Allergy Severe Anaphylaxis Verified 10/24/19 14:37 tocilizumab [From Actemra] Allergy Severe Anaphylaxis Verified 10/24/19 14:37 adhesive [ADHESIVE] Allergy Mild Verified 10/24/19 14:37 aspirin [ASPIRIN] AdvReac Unknown Verified 10/24/19 14:37 sumatriptan [From Imitrex] AdvReac Unknown Verified 10/24/19 14:37 Review of Systems <PATRICIO Mccann - Last Filed: 10/26/19 15:29> Review of Systems Narrative: GENERAL: Denies chills, fatigue, malaise, fever, sweats. HEENT: Denies sinus pain, ear pain, sore throat, difficulty swallowing, dizziness. RESPIRATORY: Denies dyspnea, cough, wheezing, hemoptysis, sputum. CARDIOVASCULAR: Denies chest pain, palpitations, orthopnea, edema, GASTROINTESTINAL: Denies nausea, vomiting, abdominal pain, diarrhea, constipatio n, melena. : Denies dysuria, frequency, incontinence, hematuria, urinary retention. MUSCULOSKELETAL: See HPI SKIN: Denies rash, skin lesions, or other NEUROLOGIC: Denies weakness, headache, numbness, change in speech, confusion, seizures, incoordination. PSYCHIATRIC: No concerning psychosocial issues. 12 point review of systems is negative except for those stated above Patient History <PATRICIO Mccann - Last Filed: 10/26/19 15:29> Medical History Hypertension (Acute) Migraines (Chronic) Rheumatoid arthritis (Chronic) Surgical History Status post tonsillectomy and adenoidectomy Social History marital status: Smoking Status: Former smoker alcohol intake: current substance use type: does not use Smoking Status: Former smoker alcohol intake frequency: 0-2 drinks per day Substance Use Type: does not use Exam <PATRICIO Mccann - Last Filed: 10/26/19 15:29> Narrative Exam Narrative: GENERAL: Obese male in no acute distress on cell phone HEAD: Atraumatic. Normocephalic. No temporal or scalp tenderness. EYES: Pupils equal round and reactive. Extraocular motions intact. No scleral icterus. No injection or drainage. ENT: Nose without bleeding, purulent drainage or septal hematoma. Throat without erythema, tonsillar hypertrophy or exudate. Uvula midline. Airway patent. NECK: Trachea midline. No JVD or lymphadenopathy. Supple, nontender, no meningeal signs. CARDIOVASCULAR: Regular rate and rhythm without murmurs, gallops, or rubs. RESPIRATORY: Clear to auscultation. Breath sounds equal bilaterally. No wheezes, rales, or rhonchi. No cough. No increased respiratory effort. No accessory muscle use. GASTROINTESTINAL: Abdomen soft, non-tender, nondistended. No hepato- splenomegaly, or palpable masses. No guarding. EXTREMITIES: No clubbing, cyanosis, or edema. No joint tenderness, effusion, or edema noted. BACK: Cervical and thoracic spine are without deformity or crepitance. No flank tenderness. Pain to palpation of lumbar spine and right-sided paraspinal muscles lumbar region NEURO: AOx3. Strength is equal upper and lower extremities bilaterally. Sensation intact bilateral lower extremities. Patient is able to ambulate with no acute distress. SKIN: No rash or erythema on visible skin Initial Vital Signs Initial Vital Signs: Vital Signs Temperature 98 F 10/26/19 11:54 Pulse Rate 90 10/26/19 11:54 Respiratory Rate 13 10/26/19 11:54 Blood Pressure 146/93 H 10/26/19 11:54 Pulse Oximetry 98 10/26/19 11:54 <Marely Diggs MD - Last Filed: 10/26/19 17:15> Initial Vital Signs Initial Vital Signs: Vital Signs Temperature 98 F 10/26/19 11:54 Pulse Rate 90 10/26/19 11:54 Respiratory Rate 13 10/26/19 11:54 Blood Pressure 146/93 H 10/26/19 11:54 Pulse Oximetry 98 10/26/19 11:54 Course <PATRCIIO Mcacnn - Last Filed: 10/26/19 15:29> Orders Ordered: ED Orders 10/26/19 11:54 XR lumbar spine 2-3V Stat XR pelvis 1-2V Stat Discontinued Medications Hydrocodone Bitart/Acetaminophen ([place] 5/325) 2 tab PO NOW ONE Stop: 10/26/19 12:56 Last Admin: 10/26/19 13:10 Dose: 2 tab Documented by: FRANCISCO Cyclobenzaprine HCl (Flexeril) 10 mg PO NOW ONE Stop: 10/26/19 11:55 Last Admin: 10/26/19 12:20 Dose: 10 mg Documented by: FRANCISCO Ketorolac Tromethamine (Toradol) 60 mg IM NOW ONE Stop: 10/26/19 11:55 Last Admin: 10/26/19 12:20 Dose: 60 mg Documented by: FRANCISCO Lidocaine (Lidoderm) 1 each TOP NOW ONE Stop: 10/26/19 11:55 Last Admin: 10/26/19 12:20 Dose: 1 each Documented by: FRANCISCO Reevaluation(s) Reevaluation #1: Review of [facility] controlled substance database illustrate that the patient received 60 x 200 mg capsules of we are echo on 10/24/2019. He also received the same amount of Lyrica on 09/20/2019. He received 180 tramadol 50 mg tablets on 09/20/19 Vital Signs Vital signs: Vital Signs - 8 hr 10/26/19 11:54 10/26/19 12:53 10/26/19 14:00 Temperature 98 F Pulse Rate 90 77 76 Respiratory Rate 13 16 16 Blood Pressure 146/93 H Blood Pressure [Left Arm] 160/76 H 145/70 H Pulse Oximetry 98 98 98 10/26/19 14:33 Temperature Pulse Rate 76 Respiratory Rate 16 Blood Pressure 177/93 H Blood Pressure [Left Arm] Pulse Oximetry 96 <Marely Diggs MD - Last Filed: 10/26/19 17:15> Orders Ordered: ED Orders 10/26/19 11:54 XR lumbar spine 2-3V Stat XR pelvis 1-2V Stat Discontinued Medications Hydrocodone Bitart/Acetaminophen ([place] 5/325) 2 tab PO NOW ONE Stop: 10/26/19 12:56 Last Admin: 10/26/19 13:10 Dose: 2 tab Documented by: FRANCISCO Cyclobenzaprine HCl (Flexeril) 10 mg PO NOW ONE Stop: 10/26/19 11:55 Last Admin: 10/26/19 12:20 Dose: 10 mg Documented by: FRANCISCO Ketorolac Tromethamine (Toradol) 60 mg IM NOW ONE Stop: 10/26/19 11:55 Last Admin: 10/26/19 12:20 Dose: 60 mg Documented by: FRANCISCO Lidocaine (Lidoderm) 1 each TOP NOW ONE Stop: 10/26/19 11:55 Last Admin: 10/26/19 12:20 Dose: 1 each Documented by: FRANCISCO Vital Signs Vital signs: Vital Signs - 8 hr 10/26/19 11:54 10/26/19 12:53 10/26/19 14:00 Temperature 98 F Pulse Rate 90 77 76 Respiratory Rate 13 16 16 Blood Pressure 146/93 H Blood Pressure [Left Arm] 160/76 H 145/70 H Pulse Oximetry 98 98 98 10/26/19 14:33 Temperature Pulse Rate 76 Respiratory Rate 16 Blood Pressure 177/93 H Blood Pressure [Left Arm] Pulse Oximetry 96 MDM - Extremity (Nontraumatic) <PATRICIO Mccann - Last Filed: 10/26/19 15:29> Imaging Data Pelvis x-ray: Radiologist's Impression: [address] [place] [id number] XRay Report Signed Patient: Cristian Lloyd [facility]#: [id number] : 1975Acct:[id number] Age/Sex: 44 / MDate of Service: 10/26/19 Loc: ED Accession Number: [id number] Procedure: XR pelvis 1-2V Ordering Provider: Georgina Gauthier PROCEDURE: XR PELVIS 1-2V INDICATIONS: right hip pain TECHNIQUE: 1 view(s) of the pelvis acquired. COMPARISON: [facility], CT, CT ABDOMEN PELVIS WITH CONTRAST, 09/21/2017, 2:23. FINDINGS: Bones: No displaced fractures or dislocations. No suspicious bony lesions. Mild degenerative changes are present. Soft tissues: Visualized bowel gas pattern is normal. No suspicious soft tissue calcifications. IMPRESSION: 1. No displaced pelvic fractures are evident. 2. Mild degenerative changes of the hips. Dictated by: Wayne Santos M.D. on 10/26/2019 at 11:33 Approved by: Wayne Santos M.D. on 10/26/2019 at 11:34 lumbar xr: Radiologist's Impression: [facility] [address] [place] [id number] XRay Report Signed Patient: Cristian Lloyd [facility]#: [id number] : 1975Acct:[id number] Age/Sex: 44 / MDate of Service: 10/26/19 Loc: ED Accession Number: [id number] Procedure: XR lumbar spine 2-3V Ordering Provider: Georgina Gauthier PROCEDURE: XR LUMBAR SPINE 2-3V INDICATIONS: pain TECHNIQUE: 3 views of the lumbar spine were acquired. COMPARISON: [facility], , XR LUMBAR SPINE WITH OBLIQUES, 09/02/2019, 10:41. FINDINGS: Bones: There are 5 lumbar-type vertebral bodies. The lowest intervertebral disk space is designated as L5-S1. The vertebral body heights are well-maintained without evidence to suggest an acute compression fracture. The bone mineralization is within normal limits. Mild degenerative changes of the lumbar spine are identified in the more prominent involving the lower lumbar facet joints, unchanged. Scattered small anterior di sc osteophyte complexes are present. Alignment of the lumbar spine is unchanged. Soft tissues: The soft tissues of the imaged abdomen and pelvis are within normal limits. IMPRESSION: Mild degenerative changes of the lumbar spine. No displaced fractures. Dictated by: Wayne Santos M.D. on 10/26/2019 at 11:23 Approved by: Wayne Santos M.D. on 10/26/2019 at 11:32 [facility] Narrative Medical decision making narrative: The patient is a 44-year-old male who presents with a chief complaint of back pain that has not improved since the past 2 days and his previous emergency department visit. He does complain of continued 10/10 pain. X-ray showed no acute findings. The patient does not have any red flag symptoms of incontinence of bowel, incontinence of bladder saddle anesthesia. Of note the patient does complain of 10/10 pain, yet is lying calmly on a stretcher with his iPad. He is not tachycardic, calm and in no acute distress. I discussed at length with the patient he has follow-up with primary care provider as scheduled on Friday. I did discuss that he cannot combine narcotics with anything sedating due to risk of . Both patient and his state understanding of this and state that he will not drink anymore with his medications. I did discussed not combining the Toradol with other NSAIDs. I discussed coming back to emergency department for any acute concerns such as incontinence of bowel, incontinence of bladder saddle anesthesia. Patient states understanding as does have no questions or concerns upon discharge. I discussed that following up PCP may be helpful and that physical therapy may be helpful. Discharge Plan Departure Patient Disposition: Home Clinical Impression: Acute low back pain with sciatica Qualifiers: Back pain laterality: midline Sciatica laterality: sciatica of right side Qualified Code(s): M54.41 - Lumbago with sciatica, right side Discharge Date/Time: 10/26/19 14:34 Instructions: Low Back Pain (Alternative Therapy), DI for Low Back Pain, DI for Back Pain With Sciatica Activity Restrictions/Additional Instructions: Thank you for trusting us with your care today. I sent one prescription to [facility]. There are paper prescriptions for the other two. Please follow-up with primary care provider as scheduled on Friday. You would likely benefit from physical therapy. Please come back to the emergency department for any acute concerns such as incontinence bowel, incontinence of bladder or numbness in your groin You have been prescribed narcotic medications. While on these medications you cannot drive or operate heavy machinery. Additionally you cannot sign legal documents or perform any duties such as this. 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 Please understand that we cannot provide further refills of narcotics or controlled substances through the ED and your pain management will need to be through your Primary Care Provider I have given you a prescription of Toradol. This is an NSAID. Do not combine it with other NSAIDs such as Aleve or ibuprofen. I suggest taking it with some food, as it can irritate your stomach. Please remember that Flexeril can also be sedating. Prescriptions: New ketorolac 10 mg tablet 10 mg PO TID PRN (Reason: pain) 5 Days RF: 0 lidocaine 5 % adhesive patch,medicated 1 patch TOP DAILY PRN (Reason: pain) Qty: 15 RF: 0 hydrocodone-acetaminophen 5-325 mg tablet 1 tab PO Q4-6H PRN (Reason: pain) Qty: 10 RF: 0 No Action sulfasalazine 500 mg Tablet 500 mg PO 6XD RF: 0 potassium chloride 10 mEq Tablet Extended Release 10 meq PO QPM RF: 0 leflunomide 20 mg Tablet 20 mg PO QPM RF: 0 levothyroxine 150 mcg Tablet 150 mcg PO QPM RF: 0 furosemide 40 mg tablet 40 mg PO QPM RF: 0 atorvastatin 20 mg tablet 20 mg PO QPM RF: 0 tramadol 50 mg tablet 100 mg PO TID RF: 0 Humira Pen 40 mg/0.4 mL pen injector kit 40 mg Q2W RF: 0 lisinopril 40 MG tablet 40 mg PO QPM RF: 0 metoprolol tartrate 25 MG tablet 50 mg PO QPM RF: 0 trazodone 50 mg tablet 50 mg PO DAILY RF: 0 quetiapine 100 mg tablet 300 mg PO DAILY RF: 0 lithium carbonate 150 mg capsule 150 mg PO BID RF: 0 pregabalin 200 mg capsule 200 mg PO BID RF: 0 prednisone 50 mg tablet 50 mg PO DAILY 5 Days Qty: 5 RF: 0 cyclobenzaprine 10 mg tablet 10 mg PO BID Qty: 25 RF: 0 Referrals: Remington Izaguirre [Primary Care Provider] -
[2019-10-26] MEDS: HYDROCODONE/ACET 5/325 TABLET 2 TAB PO (13:10)
[2019-10-26 14:00] VITALS: BP 145/70; PULSE 76; RESP 16; O2SAT 98
[2019-10-26 14:33] VITALS: BP 177/93; PULSE 76; RESP 16; O2SAT 96
== END 2019-10-26 14:34 | disposition home or self-care (01) ==
PROVIDERS: Emergency Provider Nurse Practitioner Family; PCP Family Medicine
DX: M54.41 Lumbago with sciatica, right side (principal); M25.551 Pain in right hip; E66.9 Obesity, unspecified
CPT/HCPCS: 72100; 72170; 96372; 99284; J1885

== ENCOUNTER 2020-01-09 21:23 | Emergency (ER) | payer OTHER, MEDICAID, SELFPAY ==
[2020-01-09 21:30] VITALS: BP 113/61; PULSE 78; RESP 18; TEMP 37; O2SAT 95; BMI 45.9
--- NOTE | 2020-01-09 22:26 | ED.BACK ---
HPI - Back Pain/Injury General Chief Complaint: Back Pain/Injury Stated Complaint: thinks jaundice and pain left hip Time Seen by Provider: 01/09/20 22:24 Source: patient Mode of arrival: Ambulatory Limitations: no limitations History of Present Illness HPI Narrative: The patient has a history of lumbar DJD, and 1 prior episode of right sciatica. He developed left lower back pain yesterday, radiating to the left hip and down the left lateral thigh. He has some relief with rest. He has increased discomfort when ambulatory. He has no numbness or pain extending below the thigh. He has had no recent or prior back injury. He denies bowel or urinary incontinence. He is also concerned about jaundice. He is a former heavy drinker, quitting heavy alcohol several weeks ago. He has no history of liver disease. His boss told him today that he thought it was jaundiced in ED checked out. He has had no upper GI bleeding, no hematochezia, he has dark urine in the mornings, but not persistent throughout the day. He has no fever chills, he has no recent illness. Related Data Home Medications Medication Instructions Recorded Confirmed leflunomide 20 mg PO QPM 04/19/18 08/30/19 levothyroxine 150 mcg PO QPM 04/19/18 08/30/19 potassium chloride 10 meq PO QPM 04/19/18 08/30/19 sulfasalazine 500 mg PO 6XD 04/19/18 08/30/19 adalimumab [Humira Pen] 40 mg Q2W 07/31/18 08/30/19 atorvastatin 20 mg PO QPM 07/31/18 08/30/19 furosemide 40 mg PO QPM 07/31/18 08/30/19 lisinopril 40 mg PO QPM 07/31/18 08/30/19 metoprolol tartrate 50 mg PO QPM 07/31/18 08/30/19 tramadol 100 mg PO TID 07/31/18 08/30/19 lithium carbonate 150 mg PO BID 08/30/19 08/30/19 pregabalin 200 mg PO BID 08/30/19 08/30/19 quetiapine 300 mg PO DAILY 08/30/19 08/30/19 trazodone 50 mg PO DAILY 08/30/19 08/30/19 Previous Rx's Medication Instructions Recorded cyclobenzaprine 10 mg PO BID #25 tab 10/24/19 hydrocodone-acetaminophen 1 tab PO Q4-6H PRN #10 tab 10/26/19 lidocaine 1 patch TOP DAILY PRN #15 each 10/26/19 Allergies Allergy/AdvReac Type Severity Reaction Status Date / Time atenolol Allergy Severe Anaphylaxis Verified 10/24/19 14:37 tocilizumab [From Actemra] Allergy Severe Anaphylaxis Verified 10/24/19 14:37 adhesive [ADHESIVE] Allergy Mild Verified 10/24/19 14:37 aspirin [ASPIRIN] AdvReac Unknown Verified 10/24/19 14:37 sumatriptan [From Imitrex] AdvReac Unknown Verified 10/24/19 14:37 Review of Systems Review of Systems ROS Unobtainable: All systems reviewed & are unremarkable except as noted in HPI and below Constitutional Constitutional: Denies chills, Denies fever(s), Denies lethargy and Denies weakness Eyes Eyes: Denies blurry vision and Denies change in vision ENT Comments: No ENT complaints. Cardiovascular Cardiovascular: Denies chest pain, Denies syncope, Denies rapid heart rate, Denies pedal edema and Denies dyspnea Respiratory Respiratory: Denies cough and Denies dyspnea Gastrointestinal Gastrointestinal: Denies abdominal pain, Denies diarrhea, Denies nausea and Denies vomiting Genitourinary Comments: Dark urine in the morning only. Musculoskeletal Comments: Low back pain radiating to the left hip is noted HPI. Integumentary/Breasts Skin/Breast: Denies rash Comments: No history of jaundice. Neurologic Neurologic: Denies confusion, Denies syncope, Denies memory loss and Denies weakness Psychiatric Psychiatric: Denies confusion, Denies depression and Denies memory loss Patient History Medical History (Updated 01/10/20 @ 00:25 by Regino Mora MD) DJD (degenerative joint disease), lumbar (Acute) Hypertension (Acute) Migraines (Chronic) Rheumatoid arthritis (Chronic) Surgical History Status post tonsillectomy and adenoidectomy Social History marital status: Smoking Status: Former smoker alcohol intake: current substance use type: does not use Smoking Status: Former smoker alcohol intake frequency: 0-2 drinks per day Substance Use Type: marijuana Exam Initial Vital Signs Initial Vital Signs: Vital Signs Temperature 98.6 F 01/09/20 21:30 Pulse Rate 78 01/09/20 21:30 Respiratory Rate 18 01/09/20 21:30 Blood Pressure 113/61 01/09/20 21:30 Pulse Oximetry 95 01/09/20 21:30 Const General: cooperative and well developed Nutritional Appearance: well nourished [facility] Mouth: oral mucosae normal Eyes Conjunctivae: conjunctivae normal Sclera: sclerae normal and scleral abnormality (No icterus) Resp Effort & Inspection: normal respiratory effort and able to speak in complete sentences Auscultation: clear to auscultation bilaterally, no rales, no rhonchi and no wheezes Cardio Rate: regular rate Rhythm: regular rhythm Heart Sounds: S1 normal, S2 normal, no click, no gallops, no murmurs and no rubs Pulses: normal peripheral pulses GI Inspection: non-distended Palpation: soft, no hepatosplenomegaly, No guarding, No pulsatile mass and No tender Auscultation: normal bowel sounds Skin General: no rashes or lesions noted, No jaundice and No petechiae Neuro General: patient alert, patient oriented x3, gait normal and no focal motor deficits Speech: speech normal Other: Positive straight leg raise on the left side. Extrem General: full ROM, no pedal edema and no calf tenderness Psych Appearance: grossly normal Speech and Movement: speech and movement normal Mood: congruent mood Affect: normal affect Attitude: cooperative Course Course Course Narrative: The patient has improved after the Toradol injection. He already has a Medrol Dosepak. He is advised to use ibuprofen with the Medrol. He was given a work note for the next couple days. Labs were drawn to evaluate the concern about jaundice. Clinically he does not appear jaundice. There are subtle abnormalities with the LFTs, but the bilirubin level was normal. Orders Ordered: ED Orders 01/09/20 22:45 Complete Blood Count AUTO DIFF Stat Comprehensive Metabolic Panel Stat Prothrombin Time INR Stat Vital Signs Vital signs: Vital Signs - 8 hr 01/09/20 21:30 01/10/20 00:24 Temperature 98.6 F Pulse Rate 78 81 Respiratory Rate 18 16 Blood Pressure 113/61 Blood Pressure [Right Arm] 144/68 H Pulse Oximetry 95 96 MDM - Back Pain/Injury Lab Data Result diagrams: 01/09/20 22:45 01/09/20 22:45 Labs: Lab Results 01/09/20 01/09/20 01/09/20 Range/Units 22:45 22:45 22:45 WBC 12.1 H (4.5-11.0) X10^3/uL RBC 3.97 L (4.5-5.9) X10^6/uL Hgb 12.5 L (13.5-17.5) g/dL Hct 37.6 L (41-53) % MCV 94.7 (80-100) fL MCH 31.5 (26-34) PG MCHC 33.2 (30-36) % RDW 13.9 (11.6-14.8) % Plt Count 241 (150-400) X10^3/uL Neut % (Auto) 84.3 H (50-75) % Lymph % (Auto) 8.0 L (25-40) % Titus % (Auto) 7.0 (3-14) % Eos % (Auto) 0.3 L (2-4) % Baso % (Auto) 0.4 (0-2) % Neut # (Auto) 17014 H (6112-4541) /uL Lymph # (Auto) 1000 L (2977-6380) /uL Titus # (Auto) 800 (0-900) /uL Eos # (Auto) 0 (0-450) /uL Baso # (Auto) 100 (0-100) /uL PT 11.7 (10.1-12.7) SECONDS INR 1.0 (0.9-1.3) Sodium 135 L (137-145) mmol/L Potassium 4.1 (3.4-5.1) mmol/L Chloride 102 (98-107) mmol/L Carbon Dioxide 29 (22-32) mmol/L BUN 19 (9-20) mg/dL Creatinine 1.05 (0.66-1.25) mg/dL Estimated GFR > 60.0 (>60) mL/min BUN/Creatinine Ratio 18.1 (6-22) Glucose 107 H (70-100) mg/dL Calcium 8.9 (8.4-10.2) mg/dL Total Bilirubin 0.9 (0.2-1.3) mg/dL AST 167 H (17-59) IU/L ALT 49 (<50) IU/L Alkaline Phosphatase 68 (38-126) U/L Total Protein 7.1 (6.3-8.2) g/dL Albumin 4.1 (3.5-5.0) g/dL Globulin 3.0 (1.7-4.1) g/dL Albumin/Globulin Ratio 1.4 (1.0-2.8) Urine Dip Bedside Urine Glucose Negative Bedside Urine Bilirubin - Negative Bedside Urine Ketone - Negative Urine Specific [place] 1.015 Bedside Urine Occult Blood - Negative Bedside Urine pH 6.0 Bedside Urine Protein - Negative Bedside Urine Urobilinogen - Negative Bedside Urine Nitrite - Negative Bedside Urine Leukocytes - Negative Esterase Discharge Plan Departure Patient Disposition: Home Clinical Impression: Sciatica of left side Discharge Date/Time: 01/10/20 00:37 Instructions: DI for Sciatica Activity Restrictions/Additional Instructions: Advil 3 tablets every 6 hours as needed for pain. Continue the Medrol Dosepak that she just started. No work for 2 days. Recheck with your doctor in about 1 week if not improving. Return the ER if necessary. Prescriptions: No Action sulfasalazine 500 mg Tablet 500 mg PO 6XD RF: 0 potassium chloride 10 mEq Tablet Extended Release 10 meq PO QPM RF: 0 leflunomide 20 mg Tablet 20 mg PO QPM RF: 0 levothyroxine 150 mcg Tablet 150 mcg PO QPM RF: 0 furosemide 40 mg tablet 40 mg PO QPM RF: 0 atorvastatin 20 mg tablet 20 mg PO QPM RF: 0 tramadol 50 mg tablet 100 mg PO TID RF: 0 Humira Pen 40 mg/0.4 mL pen injector kit 40 mg Q2W RF: 0 lisinopril 40 MG tablet 40 mg PO QPM RF: 0 metoprolol tartrate 25 MG tablet 50 mg PO QPM RF: 0 trazodone 50 mg tablet 50 mg PO DAILY RF: 0 quetiapine 100 mg tablet 300 mg PO DAILY RF: 0 lithium carbonate 150 mg capsule 150 mg PO BID RF: 0 pregabalin 200 mg capsule 200 mg PO BID RF: 0 cyclobenzaprine 10 mg tablet 10 mg PO BID Qty: 25 RF: 0 lidocaine 5 % adhesive patch,medicated 1 patch TOP DAILY PRN (Reason: pain) Qty: 15 RF: 0 hydrocodone-acetaminophen 5-325 mg tablet 1 tab PO Q4-6H PRN (Reason: pain) Qty: 10 RF: 0 Referrals: Remington Izaguirre [Primary Care Provider] - Stand Alone Forms: Work Release Note
[2020-01-09 22:55] LABS: Add Manual Diff / Slide Review NO; Basophils Absolute Auto 100 /uL (0-100); Basophils Percent Auto 0.4 % (0-2); Eosinophils Absolute Auto 0 /uL (0-450); Eosinophils Percent Auto 0.3 % (2-4); Hematocrit 37.6 % (41-53); Hemoglobin 12.5 g/dL (13.5-17.5); Lymphocytes Absolute Auto 1000 /uL (1100-4500); Mean Corpuscular HGB Conc 33.2 % (30-36); Mean Corpuscular Hemoglobin 31.5 PG (26-34); Mean Corpuscular Volume 94.7 fL (80-100); Monocytes Absolute Auto 800 /uL (0-900); Neutrophils Absolute Auto 10200 /uL (1500-7000); Neutrophils Percent Auto 84.3 % (50-75); Platelet Count 241 X10^3/uL (150-400); Red Blood Cell Count 3.97 X10^6/uL (4.5-5.9); Red Cell Distribution Width 13.9 % (11.6-14.8); White Blood Cell Count 12.1 X10^3/uL (4.5-11.0)
[2020-01-09 23:00] LABS: Prothrombin Time 11.7 SECONDS (10.1-12.7)
[2020-01-09 23:05] LABS: Alanine Aminotransferase 49 IU/L (<50); Albumin 4.1 g/dL (3.5-5.0); Albumin Globulin Ratio 1.4 (1.0-2.8); Alkaline Phosphatase 68 U/L (38-126); Aspartate Aminotransferase 167 IU/L (17-59); BUN Creatinine Ratio 18.1 (6-22); Bilirubin Total 0.9 mg/dL (0.2-1.3); Blood Urea Nitrogen 19 mg/dL (9-20); Calcium 8.9 mg/dL (8.4-10.2); Carbon Dioxide 29 mmol/L (22-32); Chloride 102 mmol/L (98-107); Estimated Glomerular Filt Rate > 60.0 mL/min (>60); Glucose 107 mg/dL (70-100); HEMOLYSIS < 15 (0-50); Potassium 4.1 mmol/L (3.4-5.1); Sodium 135 mmol/L (137-145); Total Protein 7.1 g/dL (6.3-8.2)
[2020-01-10 00:24] VITALS: BP 144/68; PULSE 81; RESP 16; O2SAT 96
== END 2020-01-10 00:37 | disposition home or self-care (01) ==
PROVIDERS: Emergency Provider Emergency Medicine; PCP Family Medicine
DX: M54.32 Sciatica, left side (principal); R17 Unspecified jaundice
CPT/HCPCS: 36415; 80053; 81003; 85025; 85610; 99283

== ENCOUNTER → 2020-08-03 07:13 | Outpatient (CLI) | payer OTHER, MEDICAID, SELFPAY ==
[2020-08-03 08:53] LABS: BUN Creatinine Ratio 14.7 (6-22); Blood Urea Nitrogen 25 mg/dL (9-20); Calcium 9.6 mg/dL (8.4-10.2); Carbon Dioxide 30 mmol/L (22-32); Chloride 100 mmol/L (98-107); Glucose 88 mg/dL (70-100); HEMOLYSIS < 15 (0-50); Potassium 4.9 mmol/L (3.4-5.1); Sodium 135 mmol/L (137-145)
== END ==
PROVIDERS: PCP Family Medicine; Referring Provider Family Medicine; Visit Provider Family Medicine
DX: N17.9 Acute kidney failure, unspecified (principal)
CPT/HCPCS: 36415; 80048

== ENCOUNTER → 2020-10-14 07:53 | Outpatient (CLI) | payer OTHER, MEDICAID, SELFPAY ==
[2020-10-14 08:55] LABS: Add Manual Diff / Slide Review NO; Basophils Absolute Auto 100 /uL (0-100); Eosinophils Absolute Auto 400 /uL (0-450); Eosinophils Percent Auto 7.4 % (2-4); Hematocrit 32.7 % (41-53); Hemoglobin 10.8 g/dL (13.5-17.5); Lymphocytes Absolute Auto 1200 /uL (1100-4500); Lymphocytes Percent Auto 22.2 % (25-40); Mean Corpuscular Hemoglobin 32.1 PG (26-34); Mean Corpuscular Volume 97.1 fL (80-100); Monocytes Absolute Auto 400 /uL (0-900); Monocytes Percent Auto 6.4 % (3-14); Neutrophils Absolute Auto 3500 /uL (1500-7000); Platelet Count 184 X10^3/uL (150-400); Red Blood Cell Count 3.37 X10^6/uL (4.5-5.9); Red Cell Distribution Width 13.9 % (11.6-14.8); White Blood Cell Count 5.5 X10^3/uL (4.5-11.0)
[2020-10-14 09:09] LABS: Alanine Aminotransferase 15 IU/L (<50); Albumin 3.8 g/dL (3.5-5.0); Albumin Globulin Ratio 1.4 (1.0-2.8); Alkaline Phosphatase 82 U/L (38-126); Aspartate Aminotransferase 23 IU/L (17-59); BUN Creatinine Ratio 10.8 (6-22); Bilirubin Total 0.6 mg/dL (0.2-1.3); Blood Urea Nitrogen 13 mg/dL (9-20); Calcium 8.9 mg/dL (8.4-10.2); Carbon Dioxide 28 mmol/L (22-32); Chloride 108 mmol/L (98-107); Estimated Glomerular Filt Rate > 60.0 mL/min (>60); Globulin 2.7 g/dL (1.7-4.1); Glucose 94 mg/dL (70-100); Magnesium 2.2 mg/dL (1.6-2.3); Potassium 3.6 mmol/L (3.4-5.1); Sodium 140 mmol/L (137-145); Total Protein 6.5 g/dL (6.3-8.2)
[2020-10-14 09:21] LABS: Lithium 0.6 mmol/L (0.6-1.2)
[2020-10-14 09:42] LABS: Ferritin 534 ng/mL (18-464)
[2020-10-14 22:59] LABS: Cortisol AM (Before 10AM) 11.8 ug/dL (4.46-22.7); HEMOLYSIS < 15 (0-50)
[2020-10-24 12:32] LABS: Renin Activity 6.018 ng/mL/hr (0.167-5.380)
== END ==
PROVIDERS: PCP Family Medicine; Referring Provider Family Medicine; Visit Provider Family Medicine
DX: I95.1 Orthostatic hypotension (principal); F31.75 Bipolar disorder, in partial remission, most recent episode depressed; D64.9 Anemia, unspecified
CPT/HCPCS: 36415; 80053; 80178; 82088; 82533; 82728; 83735; 84244; 85025

== ENCOUNTER 2020-12-04 17:10 | Emergency (ER) | payer OTHER, MEDICAID, SELFPAY ==
[2020-12-04 17:36] VITALS: BP 158/83; PULSE 83; RESP 12; TEMP 36.1; O2SAT 97; BMI 45.0
== END 2020-12-04 19:30 | disposition left against medical advice (07) ==
PROVIDERS: Emergency Provider Emergency Medicine; PCP Family Medicine
CPT/HCPCS: 99281

== ENCOUNTER 2020-12-07 16:50 | Emergency (ER) | payer OTHER, MEDICAID, SELFPAY ==
[2020-12-07 16:57] VITALS: BP 165/90; PULSE 86; RESP 18; TEMP 36.5; O2SAT 95; BMI 42.7
[2020-12-07 17:46] LABS: COVID19 -Nasal RAPID Negative (Negative)
[2020-12-07 17:58] LABS: Add Manual Diff / Slide Review NO; Basophils Absolute Auto 100 /uL (0-100); Basophils Percent Auto 0.8 % (0-2); Eosinophils Absolute Auto 100 /uL (0-450); Eosinophils Percent Auto 1.8 % (2-4); Hematocrit 44.8 % (41-53); Lymphocytes Absolute Auto 1000 /uL (1100-4500); Lymphocytes Percent Auto 16.7 % (25-40); Mean Corpuscular HGB Conc 33.5 % (30-36); Mean Corpuscular Hemoglobin 31.4 PG (26-34); Mean Corpuscular Volume 93.5 fL (80-100); Monocytes Absolute Auto 400 /uL (0-900); Monocytes Percent Auto 6.2 % (3-14); Neutrophils Absolute Auto 4700 /uL (1500-7000); Neutrophils Percent Auto 74.5 % (50-75); Platelet Count 165 X10^3/uL (150-400); Red Blood Cell Count 4.79 X10^6/uL (4.5-5.9); Red Cell Distribution Width 13.6 % (11.6-14.8); White Blood Cell Count 6.3 X10^3/uL (4.5-11.0)
[2020-12-07 18:25] LABS: Alanine Aminotransferase 33 IU/L (<50); Albumin 4.4 g/dL (3.5-5.0); Albumin Globulin Ratio 1.4 (1.0-2.8); Alkaline Phosphatase 82 U/L (38-126); Aspartate Aminotransferase 36 IU/L (17-59); BUN Creatinine Ratio 9.9 (6-22); Bilirubin Total 1.1 mg/dL (0.2-1.3); Blood Urea Nitrogen 8 mg/dL (9-20); Calcium 9.6 mg/dL (8.4-10.2); Carbon Dioxide 25 mmol/L (22-32); Chloride 107 mmol/L (98-107); Estimated Glomerular Filt Rate > 60.0 mL/min (>60); Globulin 3.2 g/dL (1.7-4.1); Glucose 108 mg/dL (70-100); HEMOLYSIS 35 (0-50); Potassium 3.8 mmol/L (3.4-5.1); Sodium 138 mmol/L (137-145); Total Protein 7.6 g/dL (6.3-8.2)
--- NOTE | 2020-12-07 18:53 | PC.NURSE ---
pt reports having a left sided headache that feels like pressure and warmth. Not a normal head ache for him. He also complains of vibrations throughout his body.
[2020-12-07 20:23] VITALS: BP 155/88; PULSE 87; RESP 16; O2SAT 100
--- NOTE | 2020-12-07 20:41 | ED_ITS ---
HPI - Neuro Symptoms/Deficit General Chief Complaint: Neuro Symptoms/Deficit Stated Complaint: INTERNAL VIBRATING, HOT SPOT ON HEAD Time Seen by Provider: 12/07/20 19:35 Source: patient Mode of arrival: Ambulatory Limitations: no limitations History of Present Illness HPI Narrative: 45-year-old gentleman with history of rheumatoid arthritis, migraines, hypertension, hypothyroidism, and depression presents complaining of 1 week of right head fullness and pressure in the temporal area to the top of his head without associated ?headache?. He describes difficulty swallowing last night and notes that he has had some swallowing issues at night for an extended period of time. He complains of in internal vibration that is been bothering him for the last 2 weeks. He describes it as if he were ?sitting in a massage chair? in involves his chest arms legs and leaves of feeling like there is liquid running down his right groin to the right flank. When he is having these episodes his does not note any motor changes, tremor, seizure-like activity or altered mental status. He is on multiple medications for his rheumatoid arthritis osteoarthritis fibromyalgia and hypertension as well as depression. He reports that none have change aside from metoprolol that was discontinued 2 months ago due to hypotension. Describes no illicit drug use. No recent fevers or cough. No chest pain, vomiting, diarrhea, abdominal pain. On Anticoagulants: No Related Data Home Medications Medication Instructions Recorded Confirmed leflunomide 20 mg PO QPM 04/19/18 08/30/19 levothyroxine 150 mcg PO QPM 04/19/18 08/30/19 potassium chloride 10 meq PO QPM 04/19/18 08/30/19 sulfasalazine 500 mg PO 6XD 04/19/18 08/30/19 adalimumab [Humira Pen] 40 mg Q2W 07/31/18 08/30/19 atorvastatin 20 mg PO QPM 07/31/18 08/30/19 furosemide 40 mg PO QPM 07/31/18 08/30/19 lisinopril 40 mg PO QPM 07/31/18 08/30/19 metoprolol tartrate 50 mg PO QPM 07/31/18 08/30/19 tramadol 100 mg PO TID 07/31/18 08/30/19 lithium carbonate 150 mg PO BID 08/30/19 08/30/19 pregabalin 200 mg PO BID 08/30/19 08/30/19 quetiapine 300 mg PO DAILY 08/30/19 08/30/19 trazodone 50 mg PO DAILY 08/30/19 08/30/19 Previous Rx's Medication Instructions Recorded cyclobenzaprine 10 mg PO BID #25 tab 10/24/19 hydrocodone-acetaminophen 1 tab PO Q4-6H PRN #10 tab 10/26/19 lidocaine 1 patch TOP DAILY PRN #15 each 10/26/19 Allergies Allergy/AdvReac Type Severity Reaction Status Date / Time atenolol Allergy Severe Anaphylaxis Verified 12/04/20 17:42 tocilizumab [From Actemra] Allergy Severe Anaphylaxis Verified 12/04/20 17:42 adhesive [ADHESIVE] Allergy Mild Verified 12/04/20 17:42 aspirin [ASPIRIN] AdvReac Unknown Verified 12/04/20 17:42 sumatriptan [From Imitrex] AdvReac Unknown Verified 12/04/20 17:42 Review of Systems Review of Systems Narrative: Pertinent positive and negative findings as per HPI Remainder of review of systems is otherwise unremarkable for Constitutional: Fevers, chills, weakness ENT: No sore throat, neck pain, ear pain CV: Chest pain, palpitations, dyspnea on exertion Respiratory: Cough, wheeze, dyspnea GI: Nausea, vomiting, diarrhea, change in bowel habits, black or bloody stools : Dysuria, hematuria, flank pain MS: Muscle weakness, numbness, joint swelling or warmth Skin: Rashes, nonhealing lesions Neuro: Syncope, dizziness, tingling Psych: Depression, anxiety, suicidal ideation Endocrine: Fatigue, heat or cold intolerance, very dry skin Hematologic/Lymphatic On Anticoagulants: No Patient History Medical History Depression DJD (degenerative joint disease), lumbar Fibromyalgia Hypertension Migraines Rheumatoid arthritis Surgical History Status post tonsillectomy and adenoidectomy Social History marital status: Smoking Status: Current every day smoker alcohol intake: current substance use type: does not use Smoking Status: Current every day smoker tobacco type: vaping alcohol intake frequency: 0-2 drinks per day Substance Use Type: marijuana Exam Narrative Exam Narrative: General: Healthy appearing, in no acute distress. Able to give a complete and coherent history. Well-nourished well-developed HEENT: Moist mucous membranes, normal sclera with reactive pupils, skull is unremarkable there are no skin changes over the area of reported increased pressure Neck: No JVD, supple Respiratory: Lungs are clear to auscultation, no wheezing no rales no rhonchi. Full and symmetrical air movement Cardiac: Regular rate and rhythm no murmurs no bruits Abdomen: Soft, nontender, good bowel tones, no flank pain Skin: Warm and dry, no rashes Neurologic: Grossly neurologically intact with no obvious asymmetries or abnormalities Extremities: No trauma, well perfused Psych: Cooperative, flat affect but fluent speech and appropriate linear thinking Initial Vital Signs Initial Vital Signs: Vital Signs Temperature 97.7 F 12/07/20 16:57 Pulse Rate 86 12/07/20 16:57 Respiratory Rate 18 12/07/20 16:57 Blood Pressure 165/90 H 12/07/20 16:57 Pulse Oximetry 95 12/07/20 16:57 Course Orders Ordered: ED Orders 12/07/20 17:13 COVID19 -Nasal swab/Pre-Proc Stat 12/07/20 17:27 CMP [Comprehensive Metabolic Panel] Stat Complete Blood Count AUTO DIFF Stat Frank Stat 12/07/20 21:31 CT head/brain w con Stat Vital Signs Vital signs: Vital Signs - 8 hr 12/07/20 20:23 12/07/20 22:51 Pulse Rate 87 80 Respiratory Rate 16 16 Blood Pressure 155/88 H 143/76 H Pulse Oximetry 100 100 MDM - Neuro Symptoms/Deficit Medical Records Attestation: I reviewed the patient's medical records. Lab Data Attestation: I reviewed the patient's lab results. Result diagrams: 12/07/20 17:27 12/07/20 17:27 Labs: Lab Results 12/07/20 12/07/20 12/07/20 Range/Units 17:13 17:27 17:27 WBC 6.3 (4.5-11.0) X10^3/uL RBC 4.79 (4.5-5.9) X10^6/uL Hgb 15.0 (13.5-17.5) g/dL Hct 44.8 (41-53) % MCV 93.5 (80-100) fL MCH 31.4 (26-34) PG MCHC 33.5 (30-36) % RDW 13.6 (11.6-14.8) % Plt Count 165 (150-400) X10^3/uL Neut % (Auto) 74.5 (50-75) % Lymph % (Auto) 16.7 L (25-40) % [place] % (Auto) 6.2 (3-14) % Eos % (Auto) 1.8 L (2-4) % Baso % (Auto) 0.8 (0-2) % Neut # (Auto) 4700 (3089-3737) /uL Lymph # (Auto) 1000 L (4707-3434) /uL [place] # (Auto) 400 (0-900) /uL Eos # (Auto) 100 (0-450) /uL Baso # (Auto) 100 (0-100) /uL Sodium 138 (137-145) mmol/L Potassium 3.8 (3.4-5.1) mmol/L Chloride 107 (98-107) mmol/L Carbon Dioxide 25 (22-32) mmol/L BUN 8 L (9-20) mg/dL Creatinine 0.81 (0.66-1.25) mg/dL Estimated GFR > 60.0 (>60) mL/min BUN/Creatinine Ratio 9.9 (6-22) Glucose 108 H (70-100) mg/dL Calcium 9.6 (8.4-10.2) mg/dL Total Bilirubin 1.1 (0.2-1.3) mg/dL AST 36 (17-59) IU/L ALT 33 (<50) IU/L Alkaline Phosphatase 82 (38-126) U/L Total Protein 7.6 (6.3-8.2) g/dL Albumin 4.4 (3.5-5.0) g/dL Globulin 3.2 (1.7-4.1) g/dL Albumin/Globulin Ratio 1.4 (1.0-2.8) Frank (0.6-1.2) mmol/L SARS-CoV-2 (PCR) Negative (Negative) 12/07/20 Range/Units 17:27 WBC (4.5-11.0) X10^3/uL RBC (4.5-5.9) X10^6/uL Hgb (13.5-17.5) g/dL Hct (41-53) % MCV (80-100) fL MCH (26-34) PG MCHC (30-36) % RDW (11.6-14.8) % Plt Count (150-400) X10^3/uL Neut % (Auto) (50-75) % Lymph % (Auto) (25-40) % Vinton % (Auto) (3-14) % Eos % (Auto) (2-4) % Baso % (Auto) (0-2) % Neut # (Auto) (4909-9696) /uL Lymph # (Auto) (0078-8216) /uL Vinton # (Auto) (0-900) /uL Eos # (Auto) (0-450) /uL Baso # (Auto) (0-100) /uL Sodium (137-145) mmol/L Potassium (3.4-5.1) mmol/L Chloride (98-107) mmol/L Carbon Dioxide (22-32) mmol/L BUN (9-20) mg/dL Creatinine (0.66-1.25) mg/dL Estimated GFR (>60) mL/min BUN/Creatinine Ratio (6-22) Glucose (70-100) mg/dL Calcium (8.4-10.2) mg/dL Total Bilirubin (0.2-1.3) mg/dL AST (17-59) IU/L ALT (<50) IU/L Alkaline Phosphatase (38-126) U/L Total Protein (6.3-8.2) g/dL Albumin (3.5-5.0) g/dL Globulin (1.7-4.1) g/dL Albumin/Globulin Ratio (1.0-2.8) Frank 0.4 L (0.6-1.2) mmol/L SARS-CoV-2 (PCR) (Negative) Imaging Data CT scan - head: Radiologist's Impression: FINDINGS: Image quality: Excellent. CSF Spaces: Basal cisterns are patent. No extra-axial fluid collections. Ventricles are normal in size and shape. Brain: No midline shift. No intracranial bleeds or masses. No abnormal intracranial enhancement. Trotter-white interface appears normal. Skull and face: Calvarium and visualized facial bones appear intact, without suspicious lesions. A 3 mm calcific density is noted in the left frontal scalp, unchanged. Sinuses: Visualized sinuses and mastoids are clear. IMPRESSION: Normal contrast enhanced head CT. Dictated by: Konstantin Prajapati M.D. on 12/07/2020 at 22:00 [facility] Narrative Medical decision making narrative: 45-year-old gentleman presents with a constellation of nonphysiologic complaints. Medical workup is very reassuring in shared with him. Discussed the possibility that some of his symptoms may be related to his polypharmacy and medication interactions. No evidence of infection, significant electrolyte abnormalities, stroke, seizure or lithium toxicity. Explained to him that I did not have a good explanation for the head pressure or the vibratory sense throughout his body and referred him back to his primary care physician. Questions were answered and he is safe for home discharge Discharge Plan Departure Patient Disposition: Home Clinical Impression: Fullness in head, Tremors of nervous system Activity Restrictions/Additional Instructions: Thank you for coming in today Your exam, blood work and head CT scan were very reassuring. There are no abnormalities on the CT scan to explain the pressure that you are experiencing. I do not have a full explanation for the internal tremors that you are having such difficulty with. Your blood work is normal and your lithium level is just slightly low to this is not toxicity from lithium. It may be that your having some type of medication interaction however you have not had any medication changes to suggest that as the obvious reason. As I mentioned, sometimes the best were able to do in the emergency room is rule out all of the life-threatening reasons for the symptoms that your having. That is the case today and you will need to follow-up with Dr. Izaguirre to see if he c an help you get to the bottom of what actually is causing your symptoms I hope you feel better Prescriptions: No Action sulfasalazine 500 mg Tablet 500 mg PO 6XD RF: 0 potassium chloride 10 mEq Tablet Extended Release 10 meq PO QPM RF: 0 leflunomide 20 mg Tablet 20 mg PO QPM RF: 0 levothyroxine 150 mcg Tablet 150 mcg PO QPM RF: 0 furosemide 40 mg tablet 40 mg PO QPM RF: 0 atorvastatin 20 mg tablet 20 mg PO QPM RF: 0 tramadol 50 mg tablet 100 mg PO TID RF: 0 Humira Pen 40 mg/0.4 mL pen injector kit 40 mg Q2W RF: 0 lisinopril 40 MG tablet 40 mg PO QPM RF: 0 metoprolol tartrate 25 MG tablet 50 mg PO QPM RF: 0 trazodone 50 mg tablet 50 mg PO DAILY RF: 0 quetiapine 100 mg tablet 300 mg PO DAILY RF: 0 lithium carbonate 150 mg capsule 150 mg PO BID RF: 0 pregabalin 200 mg capsule 200 mg PO BID RF: 0 cyclobenzaprine 10 mg tablet 10 mg PO BID Qty: 25 RF: 0 lidocaine 5 % adhesive patch,medicated 1 patch TOP DAILY PRN (Reason: pain) Qty: 15 RF: 0 hydrocodone-acetaminophen 5-325 mg tablet 1 tab PO Q4-6H PRN (Reason: pain) Qty: 10 RF: 0 Referrals: Remington Izaguirre DO [Primary Care Provider] -
--- NOTE | 2020-12-07 21:31 | DI.CT.S_ITS ---
PROCEDURE: CT HEAD/BRAIN W CON INDICATIONS: Left temporal/frontal pounding, pressure with tremor TECHNIQUE: 4.5 mm thick angled axial sections acquired from the foramen magnum to the vertex after the administration of intravenous contrast, with coronal and sagittal reformats. For radiation dose reduction, the following was used: automated exposure control, adjustment of mA and/or kV according to patient size. COMPARISON: [facility], CT, HEAD WITHOUT CONTRAST, 08/17/2017, 4:24. FINDINGS: Image quality: Excellent. CSF Spaces: Basal cisterns are patent. No extra-axial fluid collections. Ventricles are normal in size and shape. Brain: No midline shift. No intracranial bleeds or masses. No abnormal intracranial enhancement. Trotter-white interface appears normal. Skull and face: Calvarium and visualized facial bones appear intact, without suspicious lesions. A 3 mm calcific density is noted in the left frontal scalp, unchanged. Sinuses: Visualized sinuses and mastoids are clear. IMPRESSION: Normal contrast enhanced head CT. Dictated by: Konstantin Prajapati M.D. on 12/07/2020 at 22:00 Approved by: Konstantin Prajapati M.D. on 12/07/2020 at 22:02
[2020-12-07 21:44] LABS: Lithium 0.4 mmol/L (0.6-1.2)
[2020-12-07 22:51] VITALS: BP 143/76; PULSE 80; RESP 16; O2SAT 100
== END 2020-12-07 22:52 | disposition home or self-care (01) ==
PROVIDERS: Emergency Medicine; Emergency Provider Emergency Medicine; PCP Family Medicine
DX: R25.1 Tremor, unspecified (principal); R68.89 Other general symptoms and signs; Z20.822 Contact with and (suspected) exposure to COVID-19
CPT/HCPCS: 70460; 80053; 80178; 85025; 87635; 99283; 99284; C9803; Q9967

== ENCOUNTER 2021-03-24 02:17 | Emergency (ER) | payer OTHER, MEDICAID, SELFPAY ==
[2021-03-24 02:25] VITALS: BP 168/81; PULSE 80; RESP 18; TEMP 36.6; O2SAT 98
--- NOTE | 2021-03-24 02:29 | DI.RAD.S_ITS ---
PROCEDURE: XR SHOULDER RT MIN 2V INDICATIONS: right shoulder pain TECHNIQUE: 3 views of the shoulder were acquired. COMPARISON: [facility], , SHOULDER MINIMUM 2VIEW RIGHT, 02/17/2012, 16:42. FINDINGS: Bones: No acute fracture or traumatic malalignment. Mild joint space narrowing of the acromioclavicular joint with inferior osseous spurring. Glenohumeral joint space is preserved. Soft tissues: No suspicious soft tissue calcifications. IMPRESSION: 1. No acute bony abnormality. 2. Mild acromioclavicular joint osteoarthritis. Note: No acute discrepancy in the preliminary report. Please note addition of AC joint osteoarthritis in the final report. Dictated by: Srinath Morales M.D. on 03/24/2021 at 7:29 Approved by: Srinath Morales M.D. on 03/24/2021 at 7:32
--- NOTE | 2021-03-24 02:43 | ED.EXTPRO ---
HPI - Extremity Problem General Chief complaint: Extremity Problem,Nontraumatic Stated complaint: right shoulder pain Time Seen by Provider: 03/24/21 02:19 Source: patient Mode of arrival: Ambulatory Limitations: no limitations History of Present Illness HPI Narrative: 45-year-old male daily smoker with fibromyalgia, depression, degenerative joint disease presents with a chief complaint of right shoulder pain for the past few hours. He states his pain is worse with motion and improves with rest. He denies any numbness, tingling or weakness. He denies any neck or back pain. He denies any traumatic injury or overuse but does state the pain in his right shoulder started about 1 hour after he received his COVID vaccination in his left shoulder. He denies any neck or back pain Related Data Home Medications Medication Instructions Recorded Confirmed leflunomide 20 mg tablet 20 mg PO QPM 04/19/18 08/30/19 levothyroxine 150 mcg tablet 150 mcg PO QPM 04/19/18 08/30/19 potassium chloride 10 mEq 10 meq PO QPM 04/19/18 08/30/19 tablet,extended release sulfasalazine 500 mg tablet 500 mg PO 6XD 04/19/18 08/30/19 adalimumab 40 mg/0.4 mL 40 mg Q2W 07/31/18 08/30/19 subcutaneous pen kit atorvastatin 20 mg tablet 20 mg PO QPM 07/31/18 08/30/19 furosemide 40 mg tablet 40 mg PO QPM 07/31/18 08/30/19 lisinopril 40 mg tablet 40 mg PO QPM 07/31/18 08/30/19 metoprolol tartrate 25 mg tablet 50 mg PO QPM 07/31/18 08/30/19 tramadol 50 mg tablet 100 mg PO TID 07/31/18 08/30/19 lithium carbonate 150 mg capsule 150 mg PO BID 08/30/19 08/30/19 pregabalin 200 mg capsule 200 mg PO BID 08/30/19 08/30/19 quetiapine 100 mg tablet 300 mg PO DAILY 08/30/19 08/30/19 trazodone 50 mg tablet 50 mg PO DAILY 08/30/19 08/30/19 Previous Rx's Medication Instructions Recorded cyclobenzaprine 10 mg tablet 10 mg PO BID #25 tab 10/24/19 hydrocodone 5 mg-acetaminophen 325 1 tab PO Q4-6H PRN #10 tab 10/26/19 mg tablet lidocaine 5 % topical patch 1 patch TOP DAILY PRN #15 each 10/26/19 diazepam 2 mg tablet (Valium) 2 mg PO BID-TID PRN #10 tab 03/24/21 ketorolac 10 mg tablet 10 mg PO Q6H PRN #14 tab 03/24/21 Allergies Allergy/AdvReac Type Severity Reaction Status Date / Time atenolol Allergy Severe Anaphylaxis Verified 12/04/20 17:42 tocilizumab [From Actemra] Allergy Severe Anaphylaxis Verified 12/04/20 17:42 adhesive [ADHESIVE] Allergy Mild Verified 12/04/20 17:42 aspirin [ASPIRIN] AdvReac Unknown Verified 12/04/20 17:42 sumatriptan [From Imitrex] AdvReac Unknown Verified 12/04/20 17:42 Review of Systems Review of Systems Narrative: GENERAL: Denies chills, fatigue, malaise, fever, sweats. HEENT: Denies sinus pain, ear pain, sore throat, difficulty swallowing, dizziness. RESPIRATORY: Denies dyspnea, cough, wheezing, hemoptysis, sputum. CARDIOVASCULAR: Denies chest pain, palpitations, orthopnea, edema, GASTROINTESTINAL: Denies nausea, vomiting, abdominal pain, diarrhea, constipation, melena. : Denies dysuria, frequency, incontinence, hematuria, urinary retention. MUSCULOSKELETAL: See HPI SKIN: Denies rash, skin lesions, or other NEUROLOGIC: Denies weakness, headache, numbness, change in speech, confusion, seizures, incoordination. PSYCHIATRIC: No concerning psychosocial issues. 12 point review of systems is negative except for those stated above Patient History Medical History Depression DJD (degenerative joint disease), lumbar Fibromyalgia Hypertension Migraines Rheumatoid arthritis Surgical History Status post tonsillectomy and adenoidectomy Social History marital status: Smoking Status: Current every day smoker alcohol intake: current substance use type: does not use Smoking Status: Current every day smoker tobacco type: vaping alcohol intake frequency: 0-2 drinks per day Substance Use Type: marijuana Exam Narrative Exam Narrative: GENERAL: [45] year old patient appears stated age. Well-developed patient, in mild distress. HEAD: Atraumatic. Normocephalic. EYES: Pupils equal round and reactive. Extraocular motions intact. No scleral icterus. No injection or drainage. ENT: Nose without bleeding, purulent drainage. Throat without erythema, tonsillar hypertrophy or exudate. Airway patent. NECK: Trachea midline. Non tender CARDIOVASCULAR: Regular rate and rhythm without murmurs, gallops, or rubs. RESPIRATORY: Clear to auscultation. Breath sounds equal bilaterally. No wheezes, rales, or rhonchi. GASTROINTESTINAL: Abdomen soft, non-tender, nondistended. EXTREMITIES: No edema or joint tenderness. BACK: Nontender without deformity or crepitance. No flank tenderness. NEURO: AOx3. SKIN: No rash or erythema of visible areas Initial Vital Signs Initial Vital Signs: Vital Signs Temperature 98 F 03/24/21 02:25 Pulse Rate 80 03/24/21 02:25 Respiratory Rate 18 03/24/21 02:25 Blood Pressure 168/81 H 03/24/21 02:25 Pulse Oximetry 98 03/24/21 02:25 Course Orders Ordered: ED Orders 03/24/21 02:29 XR shoulder RT min 2V Stat Discontinued Medications Cyclobenzaprine HCl (Cyclobenzaprine 10 Mg Prepack) 1 bottle MISC SEEINSTR ONE Stop: 03/24/21 02:30 Last Admin: 03/24/21 02:44 Dose: 1 bottle Documented by: JUANY Ketorolac Tromethamine (Ketorolac 30 Mg/Ml Vial) 30 mg IM NOW ONE Stop: 03/24/21 02:30 Last Admin: 03/24/21 02:44 Dose: 30 mg Documented by: JUANY Lidocaine (Lidocaine Patch 1 Each Adh..Patch) 1 each TOP NOW ONE Stop: 03/24/21 02:30 Last Admin: 03/24/21 02:44 Dose: 1 each Documented by: JUANY Vital Signs Vital signs: Vital Signs - 8 hr 03/24/21 02:25 03/24/21 03:50 Temperature 98 F Pulse Rate 80 72 Respiratory Rate 18 17 Blood Pressure 168/81 H 138/75 Pulse Oximetry 98 97 MDM - Extremity (Nontraumatic) Imaging Data Extremity x-ray #1: Radiologist's Impression: No acute findings MDM Narrative Medical decision making narrative: Patient has right shoulder pain which is sharp and stabbing, worse with motion and improves with rest. He has full strength. Palpable spasm in his trapezius which is greatly improved after Toradol and a lidocaine patch. Other diagnoses such as cardiac or vascular problem considered but thought unlikely given history, physical and response to therapies Discharge Plan Departure Patient Disposition: Home Clinical Impression: Trapezius muscle spasm Instructions: DI for Shoulder Pain Activity Restrictions/Additional Instructions: *You have been diagnosed with [right shoulder pain, physical exam and x-ray are very reassuring. This is most likely muscle spasm] *What to do: *Please continue to take your regular medications as directed. [x ] New medication prescriptions sent to your pharmacy: [[facility]] [ ] New medication written as a paper prescription [ ] No new medications given *Please follow up with your primary care provider in 2-3 days, call for an appointment. Let them know you were seen in the Emergency Department and that we ask that you be seen in follow up. We will electronically transmit a record of today's note if your PCP is in our system *If you do not have a primary care provider please contact the [facility] Resource line at [phone]. They will ask some questions about your medical history and help get you set up with a doctor in the community. *Return to Emergency Department if you should have any new, worsening or concerning symptoms, such as [fever greater than 101 F, shaking chills, worsening pain, persistent vomiting or other bothersome symptoms] Prescriptions: New ketorolac 10 mg tablet 10 mg PO Q6H PRN (Reason: pain) Qty: 14 RF: 0 diazepam [Valium] 2 mg tablet 2 mg PO BID-TID PRN (Reason: muscle spasm) Qty: 10 RF: 0 No Action sulfasalazine 500 mg Tablet 500 mg PO 6XD RF: 0 potassium chloride 10 mEq Tablet Extended Release 10 meq PO QPM RF: 0 leflunomide 20 mg Tablet 20 mg PO QPM RF: 0 levothyroxine 150 mcg Tablet 150 mcg PO QPM RF: 0 furosemide 40 mg tablet 40 mg PO QPM RF: 0 atorvastatin 20 mg tablet 20 mg PO QPM RF: 0 tramadol 50 mg tablet 100 mg PO TID RF: 0 Humira Pen 40 mg/0.4 mL pen injector kit 40 mg Q2W RF: 0 lisinopril 40 MG tablet 40 mg PO QPM RF: 0 metoprolol tartrate 25 MG tablet 50 mg PO QPM RF: 0 trazodone 50 mg tablet 50 mg PO DAILY RF: 0 quetiapine 100 mg tablet 300 mg PO DAILY RF: 0 lithium carbonate 150 mg capsule 150 mg PO BID RF: 0 pregabalin 200 mg capsule 200 mg PO BID RF: 0 cyclobenzaprine 10 mg tablet 10 mg PO BID Qty: 25 RF: 0 lidocaine 5 % adhesive patch,medicated 1 patch TOP DAILY PRN (Reason: pain) Qty: 15 RF: 0 hydrocodone-acetaminophen 5-325 mg tablet 1 tab PO Q4-6H PRN (Reason: pain) Qty: 10 RF: 0 Referrals: Remington Izaguirre DO [Primary Care Provider] -
[2021-03-24] MEDS: CYCLOBENZAPRINE 10 MG PREPACK 1 BOTTLE MISC (02:44)
[2021-03-24] MEDS: LIDOCAINE PATCH 1 EACH ADH..PATCH TOP (02:44)
[2021-03-24] MEDS: KETOROLAC 30 MG/ML VIAL IM (02:44)
[2021-03-24 03:50] VITALS: BP 138/75; PULSE 72; RESP 17; O2SAT 97
== END 2021-03-24 04:03 | disposition home or self-care (01) ==
PROVIDERS: Emergency Provider Emergency Medicine; PCP Family Medicine
DX: M62.830 Muscle spasm of back (principal)
CPT/HCPCS: 73030; 96372; 99283; 99284; J1885

== ENCOUNTER 2021-06-19 15:05 | Emergency (ER) | payer OTHER, MEDICAID, SELFPAY ==
[2021-06-19 15:22] VITALS: BP 157/77; PULSE 98; RESP 17; TEMP 36.8; O2SAT 96; BMI 40.3
--- NOTE | 2021-06-19 15:27 | DI.RAD.S_ITS ---
PROCEDURE: XR HUMERUS RT 2V INDICATIONS: fall TECHNIQUE: AP and lateral views of the humerus were acquired. COMPARISON: None. FINDINGS: Bones: No acute fractures or dislocations. No suspicious bony lesions. Advanced degenerative changes of the right acromioclavicular joint. Coracoclavicular and acromioclavicular intervals are maintained. Soft tissues: No suspicious soft tissue calcifications. IMPRESSION: Right shoulder without acute fracture or dislocation. Humerus appears intact. Moderate right acromioclavicular joint degenerative change. Dictated by: Remington Velazquez M.D. on 06/19/2021 at 15:52 Approved by: Remington Velazquez M.D. on 06/19/2021 at 15:53
--- NOTE | 2021-06-19 15:27 | DI.RAD.S_ITS ---
PROCEDURE: XR SHOULDER RT MIN 2V INDICATIONS: fall TECHNIQUE: 3 views of the shoulder were acquired. COMPARISON: [facility], CR, XR SHOULDER RT MIN 2V, 03/24/2021, 2:27. FINDINGS: Bones: No acute fractures or dislocations. No suspicious bony lesions. Visualized ribs appear intact. Moderate degenerative changes of the right acromioclavicular joint. Coracoclavicular and acromioclavicular intervals are maintained. Soft tissues: No suspicious soft tissue calcifications. IMPRESSION: Right shoulder without acute fracture or dislocation. Moderate right acromioclavicular joint degenerative change. Dictated by: Remington Velazquez M.D. on 06/19/2021 at 15:53 Approved by: Remington Velazquez M.D. on 06/19/2021 at 15:55
--- NOTE | 2021-06-19 17:16 | ED_ITS ---
HPI - Extremity Injury (Upper) <Zi Walters PA-C - Last Filed: 06/19/21 17:23> General Chief Complaint: Extremity Injury, Upper Stated Complaint: tripped and pain in RT arm Time Seen by Provider: 06/19/21 17:05 Source: patient Mode of arrival: Ambulatory History of Present Illness HPI narrative: 46-year-old male with past medical history rheumatoid arthritis, hypertension, fibromyalgia, depression presents to the ED status post a right shoulder injury sustained yesterday. Patient states he sustained a mechanical fall, try to stop his fall with his outstretched right hand, causing sharp pain to his right christo ulder. Patient denies numbness, tingling, weakness. Patient states that it is painful to move his shoulder. Patient is left-hand dominant. Related Data Home Medications Medication Instructions Recorded Confirmed leflunomide 20 mg tablet 20 mg PO QPM 04/19/18 08/30/19 levothyroxine 150 mcg tablet 150 mcg PO QPM 04/19/18 08/30/19 potassium chloride 10 mEq 10 meq PO QPM 04/19/18 08/30/19 tablet,extended release sulfasalazine 500 mg tablet 500 mg PO 6XD 04/19/18 08/30/19 adalimumab 40 mg/0.4 mL 40 mg Q2W 07/31/18 08/30/19 subcutaneous pen kit atorvastatin 20 mg tablet 20 mg PO QPM 07/31/18 08/30/19 furosemide 40 mg tablet 40 mg PO QPM 07/31/18 08/30/19 lisinopril 40 mg tablet 40 mg PO QPM 07/31/18 08/30/19 metoprolol tartrate 25 mg tablet 50 mg PO QPM 07/31/18 08/30/19 tramadol 50 mg tablet 100 mg PO TID 07/31/18 08/30/19 lithium carbonate 150 mg capsule 150 mg PO BID 08/30/19 08/30/19 pregabalin 200 mg capsule 200 mg PO BID 08/30/19 08/30/19 quetiapine 100 mg tablet 300 mg PO DAILY 08/30/19 08/30/19 trazodone 50 mg tablet 50 mg PO DAILY 08/30/19 08/30/19 Previous Rx's Medication Instructions Recorded cyclobenzaprine 10 mg tablet 10 mg PO BID #25 tab 10/24/19 hydrocodone 5 mg-acetaminophen 325 1 tab PO Q4-6H PRN #10 tab 10/26/19 mg tablet lidocaine 5 % topical patch 1 patch TOP DAILY PRN #15 each 10/26/19 diazepam 2 mg tablet (Valium) 2 mg PO BID-TID PRN #10 tab 03/24/21 ketorolac 10 mg tablet 10 mg PO Q6H PRN #14 tab 03/24/21 Allergies Allergy/AdvReac Type Severity Reaction Status Date / Time atenolol Allergy Severe Anaphylaxis Verified 12/04/20 17:42 tocilizumab [From Actemra] Allergy Severe Anaphylaxis Verified 12/04/20 17:42 adhesive [ADHESIVE] Allergy Mild Verified 12/04/20 17:42 aspirin [ASPIRIN] AdvReac Unknown Verified 12/04/20 17:42 sumatriptan [From Imitrex] AdvReac Unknown Verified 12/04/20 17:42 Review of Systems <Zi Walters PA-C - Last Filed: 06/19/21 17:23> Review of Systems ROS Unobtainable: All systems reviewed & are unremarkable except as noted in HPI and below Constitutional Constitutional: Denies chills, Denies fatigue, Denies fever(s), Denies frequent falls, Denies lethargy and Denies weakness Eyes Eyes: Denies change in vision, Denies eye discharge, Denies irritation and Denies loss of vision ENT Ears, Nose, Mouth, and Throat: Denies change in voice, Denies dizziness, Denies neck pain, Denies sore throat and Denies throat swelling Cardiovascular Cardiovascular: Denies chest pain, Denies irregular heart rhythm, Denies lightheadedness, Denies palpitations, Denies dyspnea, Denies dyspnea on exertion and Denies orthopnea Respiratory Respiratory: Denies cough, Denies dyspnea, Denies dyspnea on exertion and Denies wheezing Gastrointestinal Gastrointestinal: Denies abdominal pain, Denies change in bowel habits, Denies diarrhea, Denies nausea and Denies vomiting Genitourinary Genitourinary: Denies hematuria, Denies flank pain, Denies urinary incontinence and Denies urinary urgency Musculoskeletal Musculoskeletal: Denies back pain, Denies muscle weakness, Denies neck pain, Denies numbness and Denies tingling Comments: Right shoulder pain. No numbness, tingling, weakness Integumentary/Breasts Skin/Breast: Denies pruritus, Denies erythema, Denies rash and Denies wounds Neurologic Neurologic: Denies behavioral changes, Denies confusion, Denies dizziness, Denies frequent falls, Denies loss of vision, Denies numbness, Denies tingling and Denies weakness Psychiatric Psychiatric: Denies anxiety, Denies behavioral changes, Denies confusion, Denies depression, Denies homicidal ideation and Denies suicidal ideation Endocrine Endocrine: Denies fatigue, Denies flushing and Denies palpitations Hematologic/Lymphatic Hematologic/Lymphatic: Denies easy bruising Allergic/Immunologic Allergic/Immunologic: Denies urticaria, Denies throat swelling and Denies wheezing Patient History <Zi Walters PA-C - Last Filed: 06/19/21 17:23> Medical History Depression DJD (degenerative joint disease), lumbar Fibromyalgia Hypertension Migraines Rheumatoid arthritis Surgical History Status post tonsillectomy and adenoidectomy Social History marital status: Smoking Status: Current every day smoker alcohol intake: current substance use type: does not use Smoking Status: Current every day smoker tobacco type: vaping alcohol intake frequency: other Substance Use Type: marijuana Exam <Zi Walters PA-C - Last Filed: 06/19/21 17:23> Initial Vital Signs Initial Vital Signs: Vital Signs Temperature 98.3 F 06/19/21 15:22 Pulse Rate 98 H 06/19/21 15:22 Respiratory Rate 17 06/19/21 15:22 Blood Pressure 157/77 H 06/19/21 15:22 Pulse Oximetry 96 06/19/21 15:22 Const General: cooperative HENNY Head: normal to inspection Eyes General: appearance normal, both eyes and all related structures Neck Neck: normal visual inspection Chest Chest: normal inspection of the chest Resp Effort & Inspection: normal respiratory effort Auscultation: clear to auscultation bilaterally Cardio Rate: regular rate Rhythm: regular rhythm Skin General: no rashes or lesions noted and No ecchymosis Neuro General: patient alert, patient awake and patient oriented x3 Extrem General: normal to inspection Other: Strength and sensation intact. Neurovascularly intact. R Shoulder range of movement limited by pain. No deformities, ecchymoses, bruising noted. <DO Nina Baumann Last Filed: 06/19/21 17:45> Initial Vital Signs Initial Vital Signs: Vital Signs Temperature 98.3 F 06/19/21 15:22 Pulse Rate 98 H 06/19/21 15:22 Respiratory Rate 17 06/19/21 15:22 Blood Pressure 157/77 H 06/19/21 15:22 Pulse Oximetry 96 06/19/21 15:22 Course <Zi Walters PA-C - Last Filed: 06/19/21 17:23> Orders Ordered: ED Orders 06/19/21 15:27 XR humerus RT 2V Stat XR shoulder RT min 2V Stat Vital Signs Vital signs: Vital Signs - 8 hr 06/19/21 15:22 Temperature 98.3 F Pulse Rate 98 H Respiratory Rate 17 Blood Pressure 157/77 H Pulse Oximetry 96 <DO Nina Baumann Last Filed: 06/19/21 17:45> Orders Ordered: ED Orders 06/19/21 15:27 XR humerus RT 2V Stat XR shoulder RT min 2V Stat Vital Signs Vital signs: Vital Signs - 8 hr 06/19/21 15:22 Temperature 98.3 F Pulse Rate 98 H Respiratory Rate 17 Blood Pressure 157/77 H Pulse Oximetry 96 MDM - Extremity Injury (Upper) <FAISAL Akers Last Filed: 06/19/21 17:23> Imaging Data Shoulder x-ray: Radiologist's Impression: PROCEDURE:? XR SHOULDER RT MIN 2V ? INDICATIONS:? fall ? TECHNIQUE:? 3 views of the shoulder were acquired.? ? COMPARISON:? [facility], , XR SHOULDER RT MIN 2V, 03/24/2021, 2:27. ? FINDINGS:? ? Bones:? No acute fractures or dislocations.? No suspicious bony lesions.? Visualized ribs appear intact.? Moderate degenerative changes of the right acromioclavicular joint. Coracoclavicular and acromioclavicular intervals are maintained. ? ? Soft tissues:? No suspicious soft tissue calcifications.? ? IMPRESSION:? Right shoulder without acute fracture or dislocation.? Moderate right acromioclavicular joint degenerative change. ? ? Dictated by: Remington Velazquez M.D. on 06/19/2021 at 15:53 ? ? Approved by: Remington Velazquez M.D. on 06/19/2021 at 15:55 ? Extremity x-ray #1: Radiologist's Impression: PROCEDURE:? XR HUMERUS RT 2V ? INDICATIONS:? fall ? TECHNIQUE:? AP and lateral views of the humerus were acquired.? ? COMPARISON:? None. ? FINDINGS:? ? Bones:? No acute fractures or dislocations.? No suspicious bony lesions.? Advanced degenerative changes of the right acromioclavicular joint. Coracoclavicular and acromioclavicular intervals are maintained. ? ? Soft tissues:? No suspicious soft tissue calcifications.? ? IMPRESSION:? Right shoulder without acute fracture or dislocation.? Humerus appears intact.? Moderate right acromioclavicular joint degenerative change. ? ? Dictated by: Remington Velazquez M.D. on 06/19/2021 at 15:52 ? ? Approved by: Remington Velazquez M.D. on 06/19/2021 at 15:53 ? MDM Narrative Medical decision making narrative: 46-year-old male with past medical history rheumatoid arthritis, hypertension, fibromyalgia, depression presents to the ED status post a right shoulder injury sustained yesterday. Concern for fractures/dislocations versus sprain/strain. Obtained x-rays. X-rays negative for fractures, dislocations. Will discharge home with ED return precautions, PCP follow-up and physical therapy follow-up. Patient verbalizes understanding. Discharge Plan Departure Patient Disposition: Home Clinical Impression: Sprain of right shoulder Instructions: DI for Shoulder Sprain Activity Restrictions/Additional Instructions: You were evaluated in the ED for a shoulder injury. Your x-rays did not show any evidence of fractures or dislocations. Your symptoms are likely due to a shoulder sprain. You may rest the shoulder, take ibuprofen or Tylenol for your symptoms. Please follow-up with your PCP, consider physical therapy. Return to the ED if your symptoms worsen, you experience numbness, tingling, weakness. Prescriptions: No Action sulfasalazine 500 mg Tablet 500 mg PO 6XD 0RF potassium chloride 10 mEq Tablet Extended Release 10 meq PO QPM 0RF leflunomide 20 mg Tablet 20 mg PO QPM 0RF levothyroxine 150 mcg Tablet 150 mcg PO QPM 0RF furosemide 40 mg tablet 40 mg PO QPM 0RF atorvastatin 20 mg tablet 20 mg PO QPM 0RF tramadol 50 mg tablet 100 mg PO TID 0RF Humira Pen 40 mg/0.4 mL pen injector kit 40 mg Q2W 0RF lisinopril 40 MG tablet 40 mg PO QPM 0RF metoprolol tartrate 25 MG tablet 50 mg PO QPM 0RF trazodone 50 mg tablet 50 mg PO DAILY 0RF quetiapine 100 mg tablet 300 mg PO DAILY 0RF lithium carbonate 150 mg capsule 150 mg PO BID 0RF pregabalin 200 mg capsule 200 mg PO BID 0RF cyclobenzaprine 10 mg tablet 10 mg PO BID Qty: 25 0RF lidocaine 5 % adhesive patch,medicated 1 patch TOP DAILY PRN (Reason: pain) Qty: 15 0RF Rx Instructions: leave on most painful area for up to 12 hrs hydrocodone-acetaminophen 5-325 mg tablet 1 tab PO Q4-6H PRN (Reason: pain) Qty: 10 0RF ketorolac 10 mg tablet 10 mg PO Q6H PRN (Reason: pain) Qty: 14 0RF diazepam [Valium] 2 mg tablet 2 mg PO BID-TID PRN (Reason: muscle spasm) Qty: 10 0RF Referrals: Remington Izaguirre DO [Primary Care Provider] - <Joseph Tsang DO - Last Filed: 06/19/21 17:45> Cosign ED Attending Cosignature Attestation: Dr Tsang Co-Sign Statement: I was available for consultation during this patient's emergency department visit. This chart is signed by myself for administrative purposes only. I did not have direct contact with this patient during this visit. They were seen independently by the APC.
== END 2021-06-19 17:24 | disposition home or self-care (01) ==
PROVIDERS: Emergency Provider Student in an Organized Health Care Education/Training Program; PCP Family Medicine
DX: S43.401A Unspecified sprain of right shoulder joint, initial encounter (principal); W18.30XA Fall on same level, unspecified, initial encounter
CPT/HCPCS: 73030; 73060; 99283

== ENCOUNTER → 2021-06-27 10:01 | Outpatient (CLI) | payer OTHER, MEDICAID, SELFPAY ==
[2021-06-27 10:48] LABS: Add Manual Diff / Slide Review NO; Basophils Absolute Auto 0 /uL (0-100); Basophils Percent Auto 0.6 % (0-2); Eosinophils Absolute Auto 400 /uL (0-450); Eosinophils Percent Auto 4.4 % (2-4); Hematocrit 41.8 % (41-53); Hemoglobin 14.2 g/dL (13.5-17.5); Lymphocytes Absolute Auto 1100 /uL (1100-4500); Lymphocytes Percent Auto 12.9 % (25-40); Mean Corpuscular HGB Conc 33.9 % (30-36); Mean Corpuscular Hemoglobin 30.7 PG (26-34); Mean Corpuscular Volume 90.7 fL (80-100); Monocytes Absolute Auto 600 /uL (0-900); Monocytes Percent Auto 7.3 % (3-14); Neutrophils Absolute Auto 6300 /uL (1500-7000); Neutrophils Percent Auto 74.8 % (50-75); Platelet Count 207 X10^3/uL (150-400); Red Blood Cell Count 4.61 X10^6/uL (4.5-5.9); Red Cell Distribution Width 14.6 % (11.6-14.8); White Blood Cell Count 8.4 X10^3/uL (4.5-11.0)
[2021-06-27 12:15] LABS: Cholesterol 135 mg/dL (140-199); HDL Cholesterol 40 mg/dL (40-60); LDL Cholesterol Calculated 76 mg/dL (<100); Triglycerides 96 mg/dL (35-150)
[2021-06-27 12:23] LABS: Prolactin 14.8 ng/mL (3.7-17.9)
[2021-06-27 12:40] LABS: Testosterone 284 ng/dL (132-813)
== END ==
PROVIDERS: PCP Family Medicine; Referring Provider Family Medicine; Visit Provider Family Medicine
DX: Z13.220 Encounter for screening for lipoid disorders (principal); R68.82 Decreased libido
CPT/HCPCS: 36415; 80061; 84146; 84403; 85025

== ENCOUNTER 2021-07-23 11:01 | Emergency (ER) | payer OTHER, MEDICAID, SELFPAY ==
[2021-07-23 11:25] VITALS: BP 132/87; PULSE 82; RESP 18; TEMP 36.7; O2SAT 95; BMI 37.7
--- NOTE | 2021-07-23 14:25 | ED.BACK ---
HPI - Back Pain/Injury General Chief Complaint: Back Pain/Injury Stated Complaint: Back pain Time Seen by Provider: 07/23/21 14:25 Source: patient History of Present Illness HPI Narrative: Patient is a 46-year-old male with history of rheumatoid arthritis, hypertension, fibromyalgia, who presents with chronic ongoing back pain. I previously on cyclobenzaprine now on a different muscle relaxer he says it is not working. He has had this left-sided back pain on going is since at least May. He has also had ongoing neck pain he recently had an outpatient MRI which I was able to read the results he has bulging just at the 6-7. However today he is complaining of his ongoing left-sided thoracic rib like pain. He has no vertebral tenderness no changes in bowel or bladder habits. Although he says that he gets really bad spasms. He says the new medication that he is on last for only a little bit and does not help him in till 4 hours at a taken it. He is on multiple other medications Related Data Home Medications Medication Instructions Recorded Confirmed leflunomide 20 mg tablet 20 mg PO QPM 04/19/18 08/30/19 levothyroxine 150 mcg tablet 150 mcg PO QPM 04/19/18 08/30/19 potassium chloride 10 mEq 10 meq PO QPM 04/19/18 08/30/19 tablet,extended release sulfasalazine 500 mg tablet 500 mg PO 6XD 04/19/18 08/30/19 adalimumab 40 mg/0.4 mL 40 mg Q2W 07/31/18 08/30/19 subcutaneous pen kit atorvastatin 20 mg tablet 20 mg PO QPM 07/31/18 08/30/19 furosemide 40 mg tablet 40 mg PO QPM 07/31/18 08/30/19 lisinopril 40 mg tablet 40 mg PO QPM 07/31/18 08/30/19 metoprolol tartrate 25 mg tablet 50 mg PO QPM 07/31/18 08/30/19 tramadol 50 mg tablet 100 mg PO TID 07/31/18 08/30/19 lithium carbonate 150 mg capsule 150 mg PO BID 08/30/19 08/30/19 pregabalin 200 mg capsule 200 mg PO BID 08/30/19 08/30/19 quetiapine 100 mg tablet 300 mg PO DAILY 08/30/19 08/30/19 trazodone 50 mg tablet 50 mg PO DAILY 08/30/19 08/30/19 Previous Rx's Medication Instructions Recorded cyclobenzaprine 10 mg tablet 10 mg PO BID #25 tab 10/24/19 hydrocodone 5 mg-acetaminophen 325 1 tab PO Q4-6H PRN #10 tab 10/26/19 mg tablet lidocaine 5 % topical patch 1 patch TOP DAILY PRN #15 each 10/26/19 diazepam 2 mg tablet (Valium) 2 mg PO BID-TID PRN #10 tab 03/24/21 ketorolac 10 mg tablet 10 mg PO Q6H PRN #14 tab 03/24/21 methocarbamol 750 mg tablet 1,500 mg PO Q8H PRN #20 tab 07/23/21 Allergies Allergy/AdvReac Type Severity Reaction Status Date / Time atenolol Allergy Severe Anaphylaxis Verified 07/23/21 11:29 tocilizumab [From Actemra] Allergy Severe Anaphylaxis Verified 07/23/21 11:29 adhesive [ADHESIVE] Allergy Mild Verified 07/23/21 11:29 aspirin [ASPIRIN] AdvReac Unknown Verified 07/23/21 11:29 sumatriptan [From Imitrex] AdvReac Unknown Verified 07/23/21 11:29 Review of Systems Review of Systems Narrative: GENERAL: Denies chills, fatigue, malaise, fever, sweats, travel HEENT: Denies sinus pain, ear pain, sore throat, difficulty swallowing, neck pain RESPIRATORY: Denies dyspnea, cough, wheezing, hemoptysis, sputum. CARDIOVASCULAR: Denies chest pain, palpitations, orthopnea, edema GASTROINTESTINAL: Denies nausea, vomiting, abdominal pain, diarrhea, constipation, melena. : Denies dysuria, frequency, incontinence, hematuria, urinary retention, flank pain. MUSCULOSKELETAL: See HPI SKIN: No rash, no erythema, no pruritus NEUROLOGIC: Denies weakness, dizziness, headache, numbness, change in speech, confusion PSYCHIATRIC: No concerning psychosocial issues. 12 point review of systems is negative except for those stated above and HPI Patient History Medical History Depression DJD (degenerative joint disease), lumbar Fibromyalgia Hypertension Migraines Rheumatoid arthritis Surgical History Status post tonsillectomy and adenoidectomy Social History marital status: Smoking Status: Current every day smoker alcohol intake: current substance use type: does not use Smoking Status: Current every day smoker tobacco type: vaping alcohol intake frequency: other Substance Use Type: marijuana Exam Initial Vital Signs Initial Vital Signs: Vital Signs Temperature 98.1 F 07/23/21 11:25 Pulse Rate 82 07/23/21 11:25 Respiratory Rate 18 07/23/21 11:25 Blood Pressure 132/87 07/23/21 11:25 Pulse Oximetry 95 07/23/21 11:25 GENERAL: Alert 46-year-old male BMI of 37 HEENT: Head atraumatic,EOMI, pupils reactive, face symmetric, moist mucous membranes CARDIOVASCULAR: Regular rate and rhythm without murmurs, rubs or gallops. RESPIRATORY: Breath sounds equal bilaterally, no wheezes rales or rhonchi. ABDOMEN: Soft, nontender. Normoactive bowel sounds all 4 quadrants. No guarding or rebound. BACK: No vertebral tenderness no step-offs painful she left lateral garrett muscles EXTREMITIES: Normal range of motion, no clubbing or edema. Neurovascularly intact NEUROLOGICAL: Alert and oriented x4.Normal gait and speech. SKIN: Warm, dry, no laceration, no petechiae, no rashes or lesions. Course Orders Ordered: Discontinued Medications Ketorolac Tromethamine (Ketorolac 30 Mg/Ml Vial) 30 mg IM NOW ONE Stop: 07/23/21 14:38 Last Admin: 07/23/21 14:45 Dose: 30 mg Documented by: LEANDRO Vital Signs Vital signs: Vital Signs - 8 hr 07/23/21 11:25 Temperature 98.1 F Pulse Rate 82 Respiratory Rate 18 Blood Pressure 132/87 Pulse Oximetry 95 MDM - Back Pain/Injury MDM Narrative Medical decision making narrative: Patient has good outpatient follow-up. He has been on multiple anti spasm medication. Will try a different 1 for now. His MRI of his neck showing a C6-C7 bulging with significant canal narrowing. Today's having left lateral thoracic lumbar pain. I think this is unrelated to his known C6-C7. At this time recommend change in medication and close outpatient follow-up. Discharge Plan Departure Patient Disposition: Home Clinical Impression: Acute exacerbation of chronic low back pain Instructions: SILVESTRE for Back Strain or Sprain Activity Restrictions/Additional Instructions: *You have been diagnosed with acute on chronic back pain *What to do: Continue physical therapy hopefully this helps her back. Follow-up with orthopedics as scheduled *Continue to take medications as directed Methocarbamol 1500 mg 3 times a day if needed this does cause sleepiness and drowsiness, do not drive or operate heavy machinery *Follow up with your primary care provider in 2-3 days or call [phone] *Return to ER if you should have increasing weakness, loss of urine or stool, numbness tingling or any new, worsening or concerning symptoms Prescriptions: New methocarbamol 750 mg tablet 1,500 mg PO Q8H PRN (Reason: muscle spasm) Qty: 20 0RF No Action sulfasalazine 500 mg Tablet 500 mg PO 6XD 0RF potassium chloride 10 mEq Tablet Extended Release 10 meq PO QPM 0RF leflunomide 20 mg Tablet 20 mg PO QPM 0RF levothyroxine 150 mcg Tablet 150 mcg PO QPM 0RF furosemide 40 mg tablet 40 mg PO QPM 0RF atorvastatin 20 mg tablet 20 mg PO QPM 0RF tramadol 50 mg tablet 100 mg PO TID 0RF Humira Pen 40 mg/0.4 mL pen injector kit 40 mg Q2W 0RF lisinopril 40 MG tablet 40 mg PO QPM 0RF metoprolol tartrate 25 MG tablet 50 mg PO QPM 0RF trazodone 50 mg tablet 50 mg PO DAILY 0RF quetiapine 100 mg tablet 300 mg PO DAILY 0RF lithium carbonate 150 mg capsule 150 mg PO BID 0RF pregabalin 200 mg capsule 200 mg PO BID 0RF cyclobenzaprine 10 mg tablet 10 mg PO BID Qty: 25 0RF lidocaine 5 % adhesive patch,medicated 1 patch TOP DAILY PRN (Reason: pain) Qty: 15 0RF Rx Instructions: leave on most painful area for up to 12 hrs hydrocodone-acetaminophen 5-325 mg tablet 1 tab PO Q4-6H PRN (Reason: pain) Qty: 10 0RF ketorolac 10 mg tablet 10 mg PO Q6H PRN (Reason: pain) Qty: 14 0RF diazepam [Valium] 2 mg tablet 2 mg PO BID-TID PRN (Reason: muscle spasm) Qty: 10 0RF Referrals: Remington Izaguirre DO [Primary Care Provider] -
[2021-07-23] MEDS: KETOROLAC 30 MG/ML VIAL IM (14:45)
== END 2021-07-23 15:03 | disposition home or self-care (01) ==
PROVIDERS: Emergency Provider Emergency Medicine; PCP Family Medicine
DX: M54.50 Low back pain, unspecified (principal); G89.29 Other chronic pain; F17.290 Nicotine dependence, other tobacco product, uncomplicated
CPT/HCPCS: 96372; 99283; J1885

== ENCOUNTER 2021-10-06 13:20 | Emergency (ER) | payer OTHER, MEDICAID, SELFPAY ==
[2021-10-06] VITALS (11 sets, daily range): BP systolic 130–146; BP diastolic 68–76; PULSE 64–78; RESP 8–16; TEMP 36.2; O2SAT 94–98; BMI 40.1
--- NOTE | 2021-10-06 13:36 | PC.NURSE ---
Pupils were 2mm, equal but difficult to detect reactivity to light.
--- NOTE | 2021-10-06 13:39 | DI.CT.S_ITS ---
PROCEDURE: CT HEAD/BRAIN WO CON INDICATIONS: seizure TECHNIQUE: Noncontrast 4.5 mm thick angled axial sections acquired from the foramen magnum to the vertex, with coronal and sagittal reformats. For radiation dose reduction, the following was used: automated exposure control, adjustment of mA and/or kV according to patient size. COMPARISON: [facility], CT, HEAD WITHOUT CONTRAST, 08/17/2017, 4:24. FINDINGS: Image quality: Excellent. CSF spaces: Basal cisterns are patent. No extra-axial fluid collections. Ventricles are normal in size and shape. Brain: No midline shift. No intracranial masses or hemorrhage. Trotter-white matter interface is normal. Skull and face: Calvarium and visualized facial bones are intact, without suspicious lesions. Sinuses: Visualized sinuses and mastoids are clear. IMPRESSION: No CT evidence of acute intracranial abnormalities. Dictated by: Randall Miller M.D. on 10/06/2021 at 14:07 Approved by: Randall Miller M.D. on 10/06/2021 at 14:07
--- NOTE | 2021-10-06 13:49 | ED.SEIZURE ---
HPI - Seizure General Chief Complaint: Seizure Stated Complaint: seizure Time Seen by Provider: 10/06/21 13:37 Source: patient, family and EMS Mode of arrival: EMS History of Present Illness HPI Narrative: The patient developed a tonic-clonic seizure at home about 45 minutes prior to arrival. His described a 45 second tonic clonic event. This was followed by a period of decreased mentation, suggesting postictal time. He is now a little slow to answer questions but is alert and oriented. He is clearly feeling better. He has a history of a seizure, years ago. He is not diagnosed with a seizure disorder, he is not on seizure medications. He does take multiple medications for anti-inflammatory management, chronic pain. Amongst these is tramadol. He has been taking tramadol for years without adverse events. He denies recent illness. He has no headache, URI symptoms, sore throat or fever. His no cough or dyspnea. He denies chest pain. He has no GI or symptoms. Has noted dizziness, visual changes, speech changes, or focal weakness. He also takes lithium. He ran out of in lithium and had not taking any for over a week until taking a dose yesterday. Related Data Home Medications Medication Instructions Recorded Confirmed leflunomide 20 mg tablet 20 mg PO QPM 04/19/18 08/30/19 levothyroxine 150 mcg tablet 150 mcg PO QPM 04/19/18 08/30/19 potassium chloride 10 mEq 10 meq PO QPM 04/19/18 08/30/19 tablet,extended release sulfasalazine 500 mg tablet 500 mg PO 6XD 04/19/18 08/30/19 adalimumab 40 mg/0.4 mL 40 mg Q2W 07/31/18 08/30/19 subcutaneous pen kit atorvastatin 20 mg tablet 20 mg PO QPM 07/31/18 08/30/19 furosemide 40 mg tablet 40 mg PO QPM 07/31/18 08/30/19 lisinopril 40 mg tablet 40 mg PO QPM 07/31/18 08/30/19 metoprolol tartrate 25 mg tablet 50 mg PO QPM 07/31/18 08/30/19 tramadol 50 mg tablet 100 mg PO TID 07/31/18 08/30/19 lithium carbonate 150 mg capsule 150 mg PO BID 08/30/19 08/30/19 pregabalin 200 mg capsule 200 mg PO BID 08/30/19 08/30/19 quetiapine 100 mg tablet 300 mg PO DAILY 08/30/19 08/30/19 trazodone 50 mg tablet 50 mg PO DAILY 08/30/19 08/30/19 Previous Rx's Medication Instructions Recorded cyclobenzaprine 10 mg tablet 10 mg PO BID #25 tab 10/24/19 hydrocodone 5 mg-acetaminophen 325 1 tab PO Q4-6H PRN #10 tab 10/26/19 mg tablet lidocaine 5 % topical patch 1 patch TOP DAILY PRN #15 each 10/26/19 diazepam 2 mg tablet (Valium) 2 mg PO BID-TID PRN #10 tab 03/24/21 ketorolac 10 mg tablet 10 mg PO Q6H PRN #14 tab 03/24/21 methocarbamol 750 mg tablet 1,500 mg PO Q8H PRN #20 tab 07/23/21 Allergies Allergy/AdvReac Type Severity Reaction Status Date / Time atenolol Allergy Severe Anaphylaxis Verified 10/06/21 17:43 tocilizumab [From Actemra] Allergy Severe Anaphylaxis Verified 10/06/21 17:43 adhesive [ADHESIVE] Allergy Mild Verified 10/06/21 17:43 aspirin [ASPIRIN] AdvReac Unknown Verified 10/06/21 17:43 sumatriptan [From Imitrex] AdvReac Unknown Verified 10/06/21 17:43 Review of Systems Review of Systems ROS Unobtainable: All systems reviewed & are unremarkable except as noted in HPI and below Constitutional Constitutional: Reports as per HPI, Denies body ache(s), Denies chills, Denies daytime sleepiness, Denies fatigue and Denies frequent falls Eyes Eyes: Denies exophthalmos and Denies change in vision ENT Ears, Nose, Mouth, and Throat: Denies change in voice, Denies dizziness, Denies hoarseness, Denies tinnitus and Denies sore throat Cardiovascular Cardiovascular: Denies chest pain, Denies rapid heart rate, Denies pedal edema and Denies dyspnea Respiratory Respiratory: Denies cough and Denies dyspnea Gastrointestinal Gastrointestinal: Denies abdominal pain, Denies bloating, Denies nausea and Denies vomiting Genitourinary Comments: No urinary complaints. Musculoskeletal Comments: Chronic back pain. No recent injuries. No discomfort in his extremities. Integumentary/Breasts Skin/Breast: Denies lesions and Denies rash Neurologic Neurologic: Denies behavioral changes, Denies dizziness and Denies frequent falls Psychiatric Psychiatric: Denies anxiety and Denies behavioral changes Endocrine Endocrine: Denies fatigue Hematologic/Lymphatic On Anticoagulants: No Allergic/Immunologic Allergic/Immunologic: Denies GI upset with certain foods Patient History Medical History (Updated 10/06/21 @ 18:47 by Marely Diggs MD) Depression DJD (degenerative joint disease), lumbar Fibromyalgia Hypertension Migraines Rheumatoid arthritis Seizure Surgical History Status post tonsillectomy and adenoidectomy Social History marital status: Smoking Status: Current every day smoker alcohol intake: current substance use type: does not use Smoking Status: Current every day smoker tobacco type: vaping alcohol intake frequency: other Substance Use Type: marijuana Exam Initial Vital Signs Initial Vital Signs: Vital Signs Temperature 97.1 F L 10/06/21 13:20 Pulse Rate 75 10/06/21 13:20 Respiratory Rate 16 10/06/21 13:20 Blood Pressure 143/74 H 10/06/21 13:20 Pulse Oximetry 97 10/06/21 13:20 Const General: cooperative, healthy appearing and comfortable Orientation: Orientation (Intact) [facility] Head: normocephalic and atraumatic Face and sinus: normal facial exam and sinuses nontender Mouth: oral mucosae normal, lip normal and tongue normal Throat: posterior oropharynx normal Eyes Sclera: sclerae normal Cornea: corneas normal Pupils: PERRL EOM: EOM intact bilaterally and movement deficit Neck Neck: normal visual inspection, full ROM and No JVD Chest Chest: normal inspection of the chest Resp Auscultation: clear to auscultation bilaterally Cardio Rate: regular rate Rhythm: regular rhythm Heart Sounds: S1 normal, S2 normal, no click and no murmurs GI Inspection: normal to inspection Palpation: soft, No guarding and No tender Auscultation: normal bowel sounds Back/Spine/Pelvis Back: normal to inspection and No back tenderness Thoracic/Lumbar Spine: thoracic and lumbar spine normal to inspection Skin General: no rashes or lesions noted Neuro General: patient alert, patient awake, patient oriented x3 and no focal motor deficits Speech: speech normal Extrem General: normal to inspection, no pedal edema and no calf tenderness Psych Mental Status: mental status grossly normal Course Course Course Narrative: The patient is clinically stable throughout his ER stay. There is no evidence of recurrent seizure activity. It is noted he takes tramadol, amongst other medications. Tramadol is known for lowering the seizure threshold. Head CT is normal. There are no traumatic lab findings acute raise concern for seizure activity. Orders Ordered: ED Orders 10/06/21 13:15 CMP [Comprehensive Metabolic Panel] Stat Complete Blood Count AUTO DIFF Stat ETOH [Ethanol (ETOH)] Stat [place] Stat Magnesium Stat Phosphorous Stat Prolactin Stat 10/06/21 13:39 CT head/brain wo con Stat EKG-12 Lead Stat 10/06/21 13:49 COVID19 -Nasal swab/Pre-Proc Stat 10/06/21 15:26 Urinalysis and Microscopic Stat Urine Drug Screen, Rapid Stat Vital Signs Vital signs: Vital Signs - 8 hr 10/06/21 13:20 10/06/21 13:28 10/06/21 13:30 Temperature 97.1 F L Pulse Rate 75 74 71 Respiratory Rate 16 11 L 9 L Blood Pressure 143/74 H 145/76 H Pulse Oximetry 97 98 97 10/06/21 14:00 10/06/21 14:12 10/06/21 14:30 Temperature Pulse Rate 72 71 64 Respiratory Rate 12 12 8 L Blood Pressure 135/68 Pulse Oximetry 95 95 97 10/06/21 14:31 10/06/21 15:00 10/06/21 15:01 Temperature Pulse Rate 67 66 68 Respiratory Rate 10 L 10 L 10 L Blood Pressure 146/69 H 142/71 H Pulse Oximetry 97 98 97 10/06/21 17:01 10/06/21 17:03 Temperature Pulse Rate 78 Respiratory Rate Blood Pressure 130/74 Pulse Oximetry 94 94 MDM - Seizure Lab Data Result diagrams: 10/06/21 13:15 10/06/21 13:15 Labs: Lab Results 10/06/21 10/06/21 10/06/21 Range/Units 13:15 13:15 13:15 WBC 7.0 (4.5-11.0) X10^3/uL RBC 4.58 (4.5-5.9) X10^6/uL Hgb 14.4 (13.5-17.5) g/dL Hct 42.8 (41-53) % MCV 93.5 (80-100) fL MCH 31.4 (26-34) PG MCHC 33.6 (30-36) % RDW 14.4 (11.6-14.8) % Plt Count 223 (150-400) X10^3/uL Neut % (Auto) 75.9 H (50-75) % Lymph % (Auto) 15.9 L (25-40) % Williams % (Auto) 5.0 (3-14) % Eos % (Auto) 2.6 (2-4) % Baso % (Auto) 0.6 (0-2) % Neut # (Auto) 5400 (5498-4990) /uL Lymph # (Auto) 1100 (6019-3400) /uL Williams # (Auto) 400 (0-900) /uL Eos # (Auto) 200 (0-450) /uL Baso # (Auto) 0 (0-100) /uL Sodium 140 (137-145) mmol/L Potassium 4.4 (3.4-5.1) mmol/L Chloride 103 (98-107) mmol/L Carbon Dioxide 30 (22-32) mmol/L BUN 15 (9-20) mg/dL Creatinine 1.00 (0.66-1.25) mg/dL Estimated GFR > 60.0 (>60) mL/min BUN/Creatinine Ratio 15.0 (6-22) Glucose 106 H (70-100) mg/dL Calcium 9.4 (8.4-10.2) mg/dL Phosphorus 4.0 (2.5-4.5) mg/dL Magnesium 2.1 (1.6-2.3) mg/dL Total Bilirubin 1.2 (0.2-1.3) mg/dL AST 41 (17-59) IU/L ALT 28 (<50) IU/L Alkaline Phosphatase 78 (38-126) U/L Total Protein 8.1 (6.3-8.2) g/dL Albumin 4.6 (3.5-5.0) g/dL Globulin 3.5 (1.7-4.1) g/dL Albumin/Globulin Ratio 1.3 (1.0-2.8) Prolactin 20.5 H (3.7-17.9) ng/mL Urine Color Urine Appearance Urine pH (4.5-8.0) Ur Specific Adams (1.000-1.035) Urine Protein (Negative) Urine Glucose (UA) (Negative) g/dL Urine Ketones (NEGATIVE) Urine Occult Blood (Negative) Urine Nitrate (Negative) Urine Bilirubin (NEGATIVE) Urine Urobilinogen (0.2) E.U./dL Ur Leukocyte Esterase (NEGATIVE) Urine RBC (0-5/HPF) Urine WBC (0-5/HPF) Urine Bacteria (None) Ur Culture Indicated? U Opiates 300ng/mL cut (Negative) Ur Oxycodone Screen (Negative) Urine Methadone Screen (Negative) Ur Barbiturates Screen (Negative) U Tricyclic Antidepress (Negative) Ur Phencyclidine Scrn (Negative) Ur Amphetamines Screen (Negative) U Methamphetamines Scrn (Negative) Ur MDMA Scrn (Ecstasy) (Negative) U Benzodiazepines Scrn (Negative) [place] (0.6-1.2) mmol/L Urine Cocaine Screen (Negative) U Marijuana (THC) Screen (Negative) Ethyl Alcohol ( - 10) mg/dL SARS-CoV-2 (PCR) (Negative) 10/06/21 10/06/21 10/06/21 Range/Units 13:15 13:15 13:49 WBC (4.5-11.0) X10^3/uL RBC (4.5-5.9) X10^6/uL Hgb (13.5-17.5) g/dL Hct (41-53) % MCV (80-100) fL MCH (26-34) PG MCHC (30-36) % RDW (11.6-14.8) % Plt Count (150-400) X10^3/uL Neut % (Auto) (50-75) % Lymph % (Auto) (25-40) % Williams % (Auto) (3-14) % Eos % (Auto) (2-4) % Baso % (Auto) (0-2) % Neut # (Auto) (3846-7381) /uL Lymph # (Auto) (4658-7035) /uL Williams # (Auto) (0-900) /uL Eos # (Auto) (0-450) /uL Baso # (Auto) (0-100) /uL Sodium (137-145) mmol/L Potassium (3.4-5.1) mmol/L Chloride (98-107) mmol/L Carbon Dioxide (22-32) mmol/L BUN (9-20) mg/dL Creatinine (0.66-1.25) mg/dL Estimated GFR (>60) mL/min BUN/Creatinine Ratio (6-22) Glucose (70-100) mg/dL Calcium (8.4-10.2) mg/dL Phosphorus (2.5-4.5) mg/dL Magnesium (1.6-2.3) mg/dL Total Bilirubin (0.2-1.3) mg/dL AST (17-59) IU/L ALT (<50) IU/L Alkaline Phosphatase (38-126) U/L Total Protein (6.3-8.2) g/dL Albumin (3.5-5.0) g/dL Globulin (1.7-4.1) g/dL Albumin/Globulin Ratio (1.0-2.8) Prolactin (3.7-17.9) ng/mL Urine Color Urine Appearance Urine pH (4.5-8.0) Ur Specific Adams (1.000-1.035) Urine Protein (Negative) Urine Glucose (UA) (Negative) g/dL Urine Ketones (NEGATIVE) Urine Occult Blood (Negative) Urine Nitrate (Negative) Urine Bilirubin (NEGATIVE) Urine Urobilinogen (0.2) E.U./dL Ur Leukocyte Esterase (NEGATIVE) Urine RBC (0-5/HPF) Urine WBC (0-5/HPF) Urine Bacteria (None) Ur Culture Indicated? U Opiates 300ng/mL cut (Negative) Ur Oxycodone Screen (Negative) Urine Methadone Screen (Negative) Ur Barbiturates Screen (Negative) U Tricyclic Antidepress (Negative) Ur Phencyclidine Scrn (Negative) Ur Amphetamines Screen (Negative) U Methamphetamines Scrn (Negative) Ur MDMA Scrn (Ecstasy) (Negative) U Benzodiazepines Scrn (Negative) [place] < 0.2 L (0.6-1.2) mmol/L Urine Cocaine Screen (Negative) U Marijuana (THC) Screen (Negative) Ethyl Alcohol < 10 ( - 10) mg/dL SARS-CoV-2 (PCR) Negative (Negative) 10/06/21 10/06/21 Range/Units 15:26 15:26 WBC (4.5-11.0) X10^3/uL RBC (4.5-5.9) X10^6/uL Hgb (13.5-17.5) g/dL Hct (41-53) % MCV (80-100) fL MCH (26-34) PG MCHC (30-36) % RDW (11.6-14.8) % Plt Count (150-400) X10^3/uL Neut % (Auto) (50-75) % Lymph % (Auto) (25-40) % Williams % (Auto) (3-14) % Eos % (Auto) (2-4) % Baso % (Auto) (0-2) % Neut # (Auto) (9288-8782) /uL Lymph # (Auto) (6538-2638) /uL Williams # (Auto) (0-900) /uL Eos # (Auto) (0-450) /uL Baso # (Auto) (0-100) /uL Sodium (137-145) mmol/L Potassium (3.4-5.1) mmol/L Chloride (98-107) mmol/L Carbon Dioxide (22-32) mmol/L BUN (9-20) mg/dL Creatinine (0.66-1.25) mg/dL Estimated GFR (>60) mL/min BUN/Creatinine Ratio (6-22) Glucose (70-100) mg/dL Calcium (8.4-10.2) mg/dL Phosphorus (2.5-4.5) mg/dL Magnesium (1.6-2.3) mg/dL Total Bilirubin (0.2-1.3) mg/dL AST (17-59) IU/L ALT (<50) IU/L Alkaline Phosphatase (38-126) U/L Total Protein (6.3-8.2) g/dL Albumin (3.5-5.0) g/dL Globulin (1.7-4.1) g/dL Albumin/Globulin Ratio (1.0-2.8) Prolactin (3.7-17.9) ng/mL Urine Color Yellow Urine Appearance Clear Urine pH 7.0 (4.5-8.0) Ur Specific Adams 1.010 (1.000-1.035) Urine Protein Negative (Negative) Urine Glucose (UA) Trace H (Negative) g/dL Urine Ketones Negative (NEGATIVE) Urine Occult Blood Negative (Negative) Urine Nitrate Negative (Negative) Urine Bilirubin Negative (NEGATIVE) Urine Urobilinogen 0.2 (0.2) E.U./dL Ur Leukocyte Esterase Negative (NEGATIVE) Urine RBC None seen (0-5/HPF) Urine WBC 0-1/hpf (0-5/HPF) Urine Bacteria None seen (None) Ur Culture Indicated? Cult not indicated U Opiates 300ng/mL cut Negative (Negative) Ur Oxycodone Screen Negative (Negative) Urine Methadone Screen Negative (Negative) Ur Barbiturates Screen Negative (Negative) U Tricyclic Antidepress Positive H (Negative) Ur Phencyclidine Scrn Negative (Negative) Ur Amphetamines Screen Negative (Negative) U Methamphetamines Scrn Negative (Negative) Ur MDMA Scrn (Ecstasy) Negative (Negative) U Benzodiazepines Scrn Negative (Negative) [place] (0.6-1.2) mmol/L Urine Cocaine Screen Negative (Negative) U Marijuana (THC) Screen Positive H (Negative) Ethyl Alcohol ( - 10) mg/dL SARS-CoV-2 (PCR) (Negative) Imaging Data CT scan - head: Radiologist's Impression: No acute finding. ECG Data Attestation: I personally reviewed and interpreted this ECG as follows: (Normal sinus rhythm rate 64 beats per minute. Q-waves [address] AVF. No acute ST elevation. No ectopy.) Discharge Plan Departure Patient Disposition: Home Clinical Impression: Seizure Instructions: DI for Seizure Disorder -- Adult Activity Restrictions/Additional Instructions: The seizure may be related to the use of tramadol along with her other medications. I advise you avoid the use of tramadol and follow-up with your doctor Friday. Return here as needed. Prescriptions: No Action sulfasalazine 500 mg Tablet 500 mg PO 6XD 0RF potassium chloride 10 mEq Tablet Extended Release 10 meq PO QPM 0RF leflunomide 20 mg Tablet 20 mg PO QPM 0RF levothyroxine 150 mcg Tablet 150 mcg PO QPM 0RF furosemide 40 mg tablet 40 mg PO QPM 0RF atorvastatin 20 mg tablet 20 mg PO QPM 0RF tramadol 50 mg tablet 100 mg PO TID 0RF Humira Pen 40 mg/0.4 mL pen injector kit 40 mg Q2W 0RF lisinopril 40 MG tablet 40 mg PO QPM 0RF metoprolol tartrate 25 MG tablet 50 mg PO QPM 0RF methocarbamol 750 mg tablet 1,500 mg PO Q8H PRN (Reason: muscle spasm) Qty: 20 0RF trazodone 50 mg tablet 50 mg PO DAILY 0RF quetiapine 100 mg tablet 300 mg PO DAILY 0RF lithium carbonate 150 mg capsule 150 mg PO BID 0RF pregabalin 200 mg capsule 200 mg PO BID 0RF cyclobenzaprine 10 mg tablet 10 mg PO BID Qty: 25 0RF lidocaine 5 % adhesive patch,medicated 1 patch TOP DAILY PRN (Reason: pain) Qty: 15 0RF Rx Instructions: leave on most painful area for up to 12 hrs hydrocodone-acetaminophen 5-325 mg tablet 1 tab PO Q4-6H PRN (Reason: pain) Qty: 10 0RF ketorolac 10 mg tablet 10 mg PO Q6H PRN (Reason: pain) Qty: 14 0RF diazepam [Valium] 2 mg tablet 2 mg PO BID-TID PRN (Reason: muscle spasm) Qty: 10 0RF Referrals: Remington Izaguirre DO [Primary Care Provider] -
[2021-10-06 13:56] LABS: Add Manual Diff / Slide Review NO; Basophils Absolute Auto 0 /uL (0-100); Basophils Percent Auto 0.6 % (0-2); Eosinophils Absolute Auto 200 /uL (0-450); Eosinophils Percent Auto 2.6 % (2-4); Hematocrit 42.8 % (41-53); Hemoglobin 14.4 g/dL (13.5-17.5); Lymphocytes Absolute Auto 1100 /uL (1100-4500); Lymphocytes Percent Auto 15.9 % (25-40); Mean Corpuscular HGB Conc 33.6 % (30-36); Mean Corpuscular Hemoglobin 31.4 PG (26-34); Mean Corpuscular Volume 93.5 fL (80-100); Monocytes Absolute Auto 400 /uL (0-900); Neutrophils Absolute Auto 5400 /uL (1500-7000); Neutrophils Percent Auto 75.9 % (50-75); Platelet Count 223 X10^3/uL (150-400); Red Blood Cell Count 4.58 X10^6/uL (4.5-5.9); Red Cell Distribution Width 14.4 % (11.6-14.8)
[2021-10-06 13:58] LABS: Alanine Aminotransferase 28 IU/L (<50); Albumin 4.6 g/dL (3.5-5.0); Albumin Globulin Ratio 1.3 (1.0-2.8); Alkaline Phosphatase 78 U/L (38-126); Aspartate Aminotransferase 41 IU/L (17-59); Bilirubin Total 1.2 mg/dL (0.2-1.3); Blood Urea Nitrogen 15 mg/dL (9-20); Calcium 9.4 mg/dL (8.4-10.2); Carbon Dioxide 30 mmol/L (22-32); Chloride 103 mmol/L (98-107); Estimated Glomerular Filt Rate > 60.0 mL/min (>60); Globulin 3.5 g/dL (1.7-4.1); Glucose 106 mg/dL (70-100); HEMOLYSIS < 15 (0-50); Magnesium 2.1 mg/dL (1.6-2.3); Potassium 4.4 mmol/L (3.4-5.1); Sodium 140 mmol/L (137-145); Total Protein 8.1 g/dL (6.3-8.2)
[2021-10-06 13:59] LABS: Lithium < 0.2 mmol/L (0.6-1.2)
[2021-10-06 14:00] LABS: Ethanol (ETOH) < 10 mg/dL
[2021-10-06 14:14] LABS: Prolactin 20.5 ng/mL (3.7-17.9)
[2021-10-06 14:20] LABS: COVID19 -Nasal RAPID Negative (Negative)
[2021-10-06 15:37] LABS: Appearance Urine UA CLEAR; Bilirubin Urine UA NEGATIVE (NEGATIVE); Color Urine UA YELLOW; Glucose Urine UA TRACE g/dL (Negative); Ketones Urine UA NEGATIVE (NEGATIVE); Leukocyte Esterase Urine UA NEGATIVE (NEGATIVE); Nitrite Urine UA NEGATIVE (Negative); Occult Blood Urine UA NEGATIVE (Negative); Protein Urine UA NEGATIVE (Negative); Urobilinogen Urine UA 0.2 E.U./dL (0.2)
[2021-10-06 15:50] LABS: UR Morphine/Opiate cutoff 300 Negative (Negative); Ur Creatinine Normal (Normal); Ur Specific Gravity Normal (Normal); Urine Amphetamines Negative (Negative); Urine Barbiturates Negative (Negative); Urine Benzodiazepines Negative (Negative); Urine Cocaine Negative (Negative); Urine MDMA Negative (Negative); Urine Methamphetamines Negative (Negative); Urine Phencyclidine Negative (Negative); Urine Tetrahydrocannabinol Positive (Negative); Urine pH Normal (Normal)
[2021-10-06 15:51] LABS: Bacteria Urine None Seen; RBC Urine None Seen (0-5/HPF); Urine Methadone Negative (Negative); Urine Oxycodone Negative (Negative); Urine Tricyclic Antidepressant Positive (Negative); WBC Urine 0-1/HPF (0-5/HPF)
[2021-10-06 17:08] LABS: Culture Indicated Urine Cult Not Indicated
== END 2021-10-06 17:05 | disposition home or self-care (01) ==
PROVIDERS: Emergency Provider Emergency Medicine; PCP Family Medicine
DX: R56.9 Unspecified convulsions (principal); Z79.899 Other long term (current) drug therapy; Z79.891 Long term (current) use of opiate analgesic; F17.290 Nicotine dependence, other tobacco product, uncomplicated; Z20.822 Contact with and (suspected) exposure to COVID-19; Z53.29 Procedure and treatment not carried out because of patient's decision for other reasons
CPT/HCPCS: 36415; 70450; 80053; 80178; 80305; 80320; 81001; 83735; 84100; 84146; 85025; 87635; 93005; 93010; 96374; 99284; C9803; J1953

== ENCOUNTER 2021-10-06 17:37 | Emergency (ER) | payer OTHER, MEDICAID, SELFPAY ==
[2021-10-06 17:41] VITALS: PULSE 87; O2SAT 96
[2021-10-06 17:43] VITALS: BP 150/87; PULSE 82; PULSE 88; RESP 19; TEMP 36.1; O2SAT 96; O2SAT 98; BMI 40.1
[2021-10-06] MEDS: levETIRAcetam 1,000 MG in SODIUM CHLORIDE 0.9% 100 ML 440 ML IV (17:46)
[2021-10-06 17:48] VITALS: BP 146/91; PULSE 80; O2SAT 95
[2021-10-06 18:00] VITALS: PULSE 79; RESP 11; O2SAT 96
[2021-10-06 18:01] VITALS: BP 137/81; PULSE 76; RESP 12; O2SAT 95
--- NOTE | 2021-10-06 18:07 | ED.SEIZURE ---
HPI - Seizure General Chief Complaint: Seizure Stated Complaint: Seizure Time Seen by Provider: 10/06/21 18:02 Source: patient Mode of arrival: Ambulatory History of Present Illness HPI Narrative: 46-year-old gentleman with a history of rheumatoid arthritis, osteoarthritis, fibromyalgia, spinal stenosis, depression currently on lithium 150 b.i.d. he had increased his dose to 300 b.i.d. and ran out of medications about a week and half ago he took his usual to pills last night. Does not describe alcohol or significant drug use no fevers, cough, chills, headaches, dyspnea, abdominal pain, vomiting, diarrhea, stroke-like symptoms, change to vision. He was seen earlier this morning after having a grand mal seizure. He describes having childhood padded mal seizures his last grand mal seizure was January 27, 1997 he has had no seizure activity at all since 1996 and has not been on seizure medications. Evaluation was unremarkable and he was discharged home earlier today went home had a 2nd grand mal seizure in returns for further evaluation. He is now loaded with 1g of IV Keppra and is completely asymptomatic Related Data Home Medications Medication Instructions Recorded Confirmed leflunomide 20 mg tablet 20 mg PO QPM 04/19/18 10/06/21 levothyroxine 150 mcg tablet 150 mcg PO QAM 04/19/18 10/06/21 sulfasalazine 500 mg tablet 1,500 mg PO BID 04/19/18 10/06/21 adalimumab 40 mg/0.4 mL 40 mg Q2W 07/31/18 10/06/21 subcutaneous pen kit atorvastatin 20 mg tablet 20 mg PO QPM 07/31/18 10/06/21 furosemide 40 mg tablet 40 mg PO QAM 07/31/18 10/06/21 lisinopril 40 mg tablet 40 mg PO QAM 07/31/18 10/06/21 lithium carbonate 150 mg capsule 150 mg PO BID 08/30/19 10/06/21 quetiapine 100 mg tablet 300 mg PO BEDTIME 08/30/19 10/06/21 trazodone 50 mg tablet 50 mg PO BEDTIME 08/30/19 10/06/21 cyclobenzaprine 10 mg tablet 10 mg PO BID PRN 10/06/21 10/06/21 pregabalin 300 mg capsule 300 mg PO BID 10/06/21 10/06/21 tramadol 50 mg tablet 50 mg PO TID 10/06/21 10/06/21 zolpidem 5 mg tablet 5 mg PO BEDTIME 10/06/21 10/06/21 Previous Rx's Medication Instructions Recorded diazepam 5 mg tablet 5 mg PO BID PRN #30 tab 10/07/21 Allergies Allergy/AdvReac Type Severity Reaction Status Date / Time atenolol Allergy Severe Anaphylaxis Verified 10/06/21 17:43 tocilizumab [From Actemra] Allergy Severe Anaphylaxis Verified 10/06/21 17:43 adhesive [ADHESIVE] Allergy Mild Verified 10/06/21 17:43 aspirin [ASPIRIN] AdvReac Unknown Verified 10/06/21 17:43 sumatriptan [From Imitrex] AdvReac Unknown Verified 10/06/21 17:43 Review of Systems Review of Systems Narrative: Remainder of complete review of systems is otherwise unremarkable except for that included in the HPI. Patient History Medical History Depression DJD (degenerative joint disease), lumbar Fibromyalgia Hypertension Migraines Rheumatoid arthritis Seizure Surgical History Status post tonsillectomy and adenoidectomy Family History Mother Heart disease Lung disease Liver disease Father Medical history unknown Social History marital status: Smoking Status: Current every day smoker alcohol intake: current substance use type: does not use Smoking Status: Current every day smoker tobacco type: vaping alcohol intake frequency: other Substance Use Type: marijuana Exam Initial Vital Signs Initial Vital Signs: Vital Signs Pulse Rate 87 10/06/21 17:41 Pulse Oximetry 96 10/06/21 17:41 General: Healthy appearing, in no acute distress. Able to give a complete and coherent history. Well-nourished well-developed HEENT: Moist mucous membranes, normal sclera with reactive pupils, Neck: No JVD, supple Respiratory: Lungs are clear to auscultation, no wheezing no rales no rhonchi. Full and symmetrical air movement Cardiac: Regular rate and rhythm no murmurs no bruits Abdomen: Soft, nontender, good bowel tones, no flank pain Skin: Warm and dry, no rashes Neurologic: Grossly neurologically intact with no obvious asymmetries or abnormalities, he is not hyperreflexic he is cognitively intact he has no clonus Extremities: No trauma, well perfused Psych: Cooperative, appropriate insight and affect Course Orders Ordered: ED Orders 10/06/21 21:21 Education, smoking cessation ONGOING Discontinued Medications Atorvastatin Calcium (Atorvastatin 20 Mg Tablet) 20 mg PO QPM CATH[facility]INE Diazepam (Diazepam 5 Mg Tablet) 5 mg PO BID CATH[facility]INE Enoxaparin Sodium (Enoxaparin 40 Mg/0.4 Ml Syringe) 40 mg SUBCUT DAILY CATHERINE Levetiracetam 1,000 mg/ Sodium (Chloride) 110 mls @ 440 mls/hr IV NOW ONE Stop: 10/06/21 17:39 Last Infusion: 10/06/21 18:12 Dose: 0 mls/hr Documented by: Admin: 10/06/21 17:46 Dose: 440 mls/hr Documented by: MARYCARMEN Levothyroxine Sodium (Levothyroxine 150 Mcg Tablet) 150 mcg PO 0600 [facility] Lisinopril (Lisinopril 20 Mg Tablet) 40 mg PO DAILY [facility] Lorazepam (Lorazepam 2 Mg/Ml Inj) 1 mg IV PRN PRN PRN Reason: Seizure Activity Naloxone HCl (Naloxone 0.4 Mg/Ml Vial) 0.2 mg IV Q2MIN PRN PRN Reason: Opiate Reversal Ondansetron HCl (Ondansetron 4 Mg/2 Ml Inj) 4 mg IV Q6HR PRN PRN Reason: Nausea And Vomiting Pregabalin (Pregabalin 75 Mg Capsule) 300 mg PO BID [facility] Quetiapine Fumarate (Quetiapine 100 Mg Tablet) 300 mg PO BEDTIME [facility]ER[facility] Tramadol HCl (Tramadol 50 Mg Tablet) 50 mg PO TID PRN PRN Reason: Pain, Moderate (4-6) Vital Signs Vital signs: Vital Signs - 8 hr 10/06/21 17:41 10/06/21 17:43 10/06/21 17:48 Temperature 96.9 F L Pulse Rate 87 88 80 Respiratory Rate 19 Blood Pressure 150/87 H 146/91 H Pulse Oximetry 96 98 95 10/06/21 18:00 10/06/21 18:01 10/06/21 18:15 Temperature Pulse Rate 79 76 76 Respiratory Rate 11 L 12 17 Blood Pressure 137/81 140/75 Pulse Oximetry 96 95 95 MDM - Seizure Lab Data Lab results narrative: CBC CMP toxicology done at 1:15 a.m. today were all essentially unremarkable. Tox with tricyclics and marijuana Imaging Data CT scan - head: Radiologist's Impression: FINDINGS:? Image quality:? Excellent.? ? CSF spaces:? Basal cisterns are patent.? No extra-axial fluid collections.? Ventricles are normal in size and shape.? ? Brain:? No midline shift.? No intracranial masses or hemorrhage.? Trotter-white matter interface is normal.? ? Skull and face:? Calvarium and visualized facial bones are intact, without suspicious lesions.? ? Sinuses:? Visualized sinuses and mastoids are clear.? ? IMPRESSION:? No CT evidence of acute intracranial abnormalities. ? ? Dictated by: Randall Miller M.D. on 10/06/2021 at 14:07 ? ? [facility] Narrative Medical decision making narrative: 46-year-old gentleman on a significant combination of medications for mood disorder with lithium, chronic pain secondary to multiple different types of arthritis including pregabalin, sulfasalazine, 100 mg t.i.d. of tramadol and for severe insomnia takes 50 mg of trazodone 300 mg of quetiapine and occasional Ambien. Patient has all of his primary care, automobile accessories salesperson, store protection specialist and range master at [facility]. He has not seen and a neurologist as he has not previously had seizures since 1996 or been on medications. Currently [facility] does not have neurology on-call see if we can talk with a neurologist to discuss current care. At this point he is not hyperreflexic after receiving 1 g of Keppra. [address] Lerma, neurology on-call at [facility]. Reviewed findings medications etc.. His recommendation was to go up on pregabalin to 225 twice a day and decrease tramadol to 50 mg 3 times a day. In reviewing this with the patient, he states that he is currently at 300 mg twice a day of pregabalin and takes between 4 and 5 doses of 10 mg of cyclobenzaprine daily. Will ask him to discontinue the cyclobenzaprine and replace that with 5 mg b.i.d. of diazepam to help with both muscle spasm as well as seizure control. I have also asked that he decrease his tramadol level from 100 3 times a day to 50 mg 3 times a day. He has been on these high levels for number of years. Patient is reviewed with the hospitalist and be admitted under observation status. Patient has just received a phone call from his who is telling him that she is going to divorce him and he is choosing to leave Against Medical Advice at this time. He is given written instructions as well as medication recommendations Discharge Plan Departure Patient Disposition: Left Against Medical Advice Clinical Impression: Seizure Activity Restrictions/Additional Instructions: After having 2 seizures today, the neurologist did recommend staying in the hospital, I do understand your situation is challenging. If you are worse, please come back In terms of reasons for your seizures, I suspect that medications are partially involved. After talking with the neurologist on-call at [facility] in [place] I am going to suggest following medicine changes. I am going to suggest that you completely stop your cyclobenzaprine. To replace this, I would recommend diazepam/Valium 5 mg twice a day. I think this will be a more effective long-term muscle relaxer and also will work to prevent seizures. A 2 week prescription was electronically sent to [facility]. Please continue the 300 mg morning and night of Lyrica/pregabalin You had been on tramadol 100 mg 3 times a day. This can cause seizures. Please decrease this to 50 mg only 3 times a day. If you can tolerate twice a day that would be even better. ED provider commented on CBD use: If your choosing to use marijuana, I would recommend using a hybrid blend rather than sativa only and use the highest CBD content. CBD can also help prevent seizures. THC does not. You need to follow up with your primary care doctor Prescriptions: New diazepam 5 mg tablet 5 mg PO BID PRN (Reason: muscle spasm) Qty: 30 0RF No Action sulfasalazine 500 mg Tablet 1,500 mg PO BID 0RF leflunomide 20 mg Tablet 20 mg PO QPM 0RF levothyroxine 150 mcg Tablet 150 mcg PO QAM 0RF furosemide 40 mg tablet 40 mg PO QAM 0RF atorvastatin 20 mg tablet 20 mg PO QPM 0RF Humira Pen 40 mg/0.4 mL pen injector kit 40 mg Q2W 0RF lisinopril 40 MG tablet 40 mg PO QAM 0RF zolpidem 5 mg tablet 5 mg PO BEDTIME 0RF Label Comments: TAKE ONE TABLET BY MOUTH EVERY NIGHT NEEDED FOR SLEEP pregabalin 300 mg capsule 300 mg PO BID 0RF Label Comments: TAKE ONE CAPSULE BY MOUTH TWICE DAILY cyclobenzaprine 10 mg tablet 10 mg PO BID PRN (Reason: Back Pain) 0RF tramadol 50 mg tablet 50 mg PO TID 0RF Label Comments: TAKE ONE TABLET BY MOUTH EVERY EIGHT HOURS NEEDED FOR MODERATE PAIN trazodone 50 mg tablet 50 mg PO BEDTIME 0RF quetiapine 100 mg tablet 300 mg PO BEDTIME 0RF lithium carbonate 150 mg capsule 150 mg PO BID 0RF Referrals: Remington Izaguirre DO [Primary Care Provider] - Stand Alone Forms: Against Medical Advice
[2021-10-06 18:15] VITALS: BP 140/75; PULSE 76; RESP 17; O2SAT 95
--- NOTE | 2021-10-06 20:32 | PC.NURSE ---
tramadol discontinued from med list per provider as thought to contribute to seizure activity.
--- NOTE | 2021-10-06 21:42 | PM.HP.1 ---
History of Present Illness History of Present Illness Date Patient Seen: 10/06/21 Time Patient Seen: 21:43 Chief complaint: Seizure Narrative: Cristian Lloyd is a 46-year-old male with a history of rheumatoid arthritis, osteoarthritis, fibromyalgia, spinal stenosis, bipolar and depression currently on lithium 150 b.i.d presented with 2 witnessed seizures to the ED today. He had increased his lithium dose to 300 b.i.d. and ran out of medications about a week and half ago. He took his usual medications last night.? Does not alcohol consumption but does vape tobacco and marijuana, denies any other illicit drug use. Denies fevers, cough, chills, headaches, dyspnea, abdominal pain, vomiting, diarrhea, stroke-like symptoms, or vision changes.? He describes having childhood petite mal seizures and states his last grand mal seizure was January 27, 1997, he has had no seizure activity at all since 1996 and has not been on seizure medications.? He states he started to have visual hallucinations about 6 months ago, but has not had any for 2 months. He is not seen by Psychiatry stating his insurance does not cover it. Evaluation was unremarkable and he was discharged home earlier today went home had a 2nd grand mal seizure and returned to the hospital for further evaluation.? He was now loaded with? 1g of IV Keppra and is completely asymptomatic and agreed to be observed overnight with adjustments to his medications. I was completing his observation orders when I received a call that his showed up to the ED and informed him that she was him and that he was leaving [place]. Patient History Medical History (Updated 10/06/21 @ 21:49 by Marely Diggs MD) Depression DJD (degenerative joint disease), lumbar Fibromyalgia Hypertension Migraines Rheumatoid arthritis Seizure Surgical History Status post tonsillectomy and adenoidectomy Family & Social History Family History (Updated 10/06/21 @ 21:53 by DAVID Rodriguez) Mother Heart disease Lung disease Liver disease Father Medical history unknown Family history unavailable: Yes (Father) Safety & Behavioral: Feels Safe in Current Yes Environment Been Physically Hurt or No Threatened By a Person Tobacco & Substance use: Smoking Status Current every day smoker alcohol intake current alcohol intake frequency other Substance Use Type marijuana Meds Home Medications and Allergies Home Medications Medication Instructions Recorded Confirmed Type leflunomide 20 mg tablet 20 mg PO QPM 04/19/18 10/06/21 History levothyroxine 150 mcg tablet 150 mcg PO QAM 04/19/18 10/06/21 History sulfasalazine 500 mg tablet 1,500 mg PO BID 04/19/18 10/06/21 History adalimumab 40 mg/0.4 mL 40 mg Q2W 07/31/18 10/06/21 History subcutaneous pen kit atorvastatin 20 mg tablet 20 mg PO QPM 07/31/18 10/06/21 History furosemide 40 mg tablet 40 mg PO QAM 07/31/18 10/06/21 History lisinopril 40 mg tablet 40 mg PO QAM 07/31/18 10/06/21 History lithium carbonate 150 mg capsule 150 mg PO BID 08/30/19 10/06/21 History quetiapine 100 mg tablet 300 mg PO BEDTIME 08/30/19 10/06/21 History trazodone 50 mg tablet 50 mg PO BEDTIME 08/30/19 10/06/21 History cyclobenzaprine 10 mg tablet 10 mg PO BID PRN 10/06/21 10/06/21 History pregabalin 300 mg capsule 300 mg PO BID 10/06/21 10/06/21 History tramadol 50 mg tablet 50 mg PO TID 10/06/21 10/06/21 History zolpidem 5 mg tablet 5 mg PO BEDTIME 10/06/21 10/06/21 History Allergies Allergy/AdvReac Type Severity Reaction Status Date / Time atenolol Allergy Severe Anaphylaxis Verified 10/06/21 17:43 tocilizumab [From Actemra] Allergy Severe Anaphylaxis Verified 10/06/21 17:43 adhesive [ADHESIVE] Allergy Mild Verified 10/06/21 17:43 aspirin [ASPIRIN] AdvReac Unknown Verified 10/06/21 17:43 sumatriptan [From Imitrex] AdvReac Unknown Verified 10/06/21 17:43 Review of Systems Review of Systems ROS: Yes All systems reviewed with the patient and are negative except as otherwise documented Exam Vital Signs (past 8 hours): - 10/06/21 17:41 10/06/21 17:43 10/06/21 17:48 Temperature 96.9 F L Pulse Rate 87 88 80 Respiratory Rate 19 Blood Pressure 150/87 H 146/91 H Pulse Oximetry 96 98 95 10/06/21 18:00 10/06/21 18:01 10/06/21 18:15 Temperature Pulse Rate 79 76 76 Respiratory Rate 11 L 12 17 Blood Pressure 137/81 140/75 Pulse Oximetry 96 95 95 Oxygen Delivery Method Room Air Narrative Exam Narrative: Gen: Alert, oriented, well-developed 46 y.o. male, anxious HEENT: normocephalic, atraumatic, conjunctiva clear, sclera non-icteric, oral mucosa pink and moist Neck: supple, full ROM, no JVD, trachea is midline Resp: Lungs CTA, non-labored breathing CV: RRR, no murmur or rubs Abd: soft, non-tender, normoactive BTs Skin: no lesions or rashes, dry and intact Neuro: Alert and oriented X 4 w/no focal deficits. Speech clear and coherent. Extremities: moves all 4 extremities, is ambulatory, negative Anthony?s sign Psyche: mildly agitated and stating was going to check out tomorrow regardless of his state Assessment & Plan Assessment & Plan narrative: 46-year-old male was to be observed overnight for additional seizure activity and his medications adjusted. I was then advised that the patient's came in and informed him she was seeking a divorce and that the patient told the emergency department provider that he would be leaving Against Medical Advice immediately. Discharge diagnosis: Seizure did disorder, likely polypharmacy Bipolar disorder Polysubstance abuse Rheumatoid arthritis Fibromyalgia Morbid obesity Hypertension Hyperlipidemia COVID-19 COVID-19 status: Negative Result date/Date tested (Pos, Neg/Pending): 10/06/21 Quality VTE Deep Vein Thrombosis/Pulmonary Embolism Present on Admission: No MIPS - Admit I confirm the patient?s Advance Care Plan is present, Code status is documented, Surrogate decision maker is in patient?s record [If Yes, STOP here]: Yes MIPS - DC The patient has current or prior documentation of left ventricular ejection fraction (LVEF) less than 40%, or moderate or severely depressed left ventricular systolic function.: No
--- NOTE | 2021-10-06 22:00 | PM.DS.1 ---
History of Present Illness History of Present Illness Date Patient Seen: 10/06/21 Time Patient Seen: 22:30 Chief complaint: Seizure Narrative: Cristian Lloyd is a 46-year-old male with a history of rheumatoid arthritis, osteoarthritis, fibromyalgia, spinal stenosis, bipolar and depression currently on lithium 150 b.i.d presented with 2 witnessed seizures to the ED today. He had increased his lithium dose to 300 b.i.d. and ran out of medications about a week and half ago. He took his usual medications last night.? Does not alcohol consumption but does vape tobacco and marijuana, denies any other illicit drug use. Denies fevers, cough, chills, headaches, dyspnea, abdominal pain, vomiting, diarrhea, stroke-like symptoms, or vision changes.? He describes having childhood petite mal seizures and states his last grand mal seizure was January 27, 1997, he has had no seizure activity at all since 1996 and has not been on seizure medications.? He states he started to have visual hallucinations about 6 months ago, but has not had any for 2 months. He is not seen by Psychiatry stating his insurance does not cover it. Evaluation was unremarkable and he was discharged home earlier today went home had a 2nd grand mal seizure and returned to the hospital for further evaluation.? He was now loaded with? 1g of IV Keppra and is completely asymptomatic and agreed to be observed overnight with adjustments to his medications. I was completing his observation orders when I received a call that his showed up to the ED and informed him that she was him and that he was leaving AMA. Discharge Providers Provider Discharge Date: 10/06/21 Primary care physician: Remington Izaguirre DO Consults: 10/08/21 Consult to Physician Routine Comment: Consulting Provider: Raman Barkley Reason for consultation: Bipolar, polypharmacy, seizures Has provider been notified: No Discharge provider: DAVID Rodriguez Summary Hospital Course Discharge Diagnosis: Seizure disorder, likely polypharmacy Bipolar disorder Polysubstance abuse Rheumatoid arthritis Fibromyalgia Morbid obesity Hypertension Hyperlipidemia Hospital Course: Intent was to have the patient be observed overnight and to make medication adjustments as it was thought that his medications and combinations of medications may be contributing to his seizures. I received a call from the ED where he was boarding, that his showed up, informed him that she was him, and the patient opted to leave Against Medical Advice. Status at Discharge Cognitive/behavioral status at discharge: oriented Functional status at discharge: independent ambulation Overall status at discharge: patient is back to baseline Exam Vital Signs (past 8 hours): - 10/06/21 17:41 10/06/21 17:43 10/06/21 17:48 Temperature 96.9 F L Pulse Rate 87 88 80 Respiratory Rate 19 Blood Pressure 150/87 H 146/91 H Pulse Oximetry 96 98 95 10/06/21 18:00 10/06/21 18:01 10/06/21 18:15 Temperature Pulse Rate 79 76 76 Respiratory Rate 11 L 12 17 Blood Pressure 137/81 140/75 Pulse Oximetry 96 95 95 Oxygen Delivery Method Room Air Narrative Exam Narrative: See [facility] Medical History Depression DJD (degenerative joint disease), lumbar Fibromyalgia Hypertension Migraines Rheumatoid arthritis Seizure Surgical History Status post tonsillectomy and adenoidectomy Family History Mother Heart disease Lung disease Liver disease Father Medical history unknown Social History marital status: Smoking Status: Current every day smoker alcohol intake: current substance use type: does not use Discharge Assessment & Plan Assessment and Plan Assessment: Patient left Against Medical Advice Plan of Treatment: Recommend that patient see a psychiatrist for further optimization of his medications. Discharge Plan Departure Patient Disposition: Left Against Medical Advice Clinical Impression: Seizure Activity Restrictions/Additional Instructions: After having 2 seizures today, the neurologist did recommend staying in the hospital, I do understand your situation is challenging. If you are worse, please come back In terms of reasons for your seizures, I suspect that medications are partially involved. After talking with the neurologist on-call at [facility] in [place] I am going to suggest following medicine changes. I am going to suggest that you completely stop your cyclobenzaprine. To replace this, I would recommend diazepam/Valium 5 mg twice a day. I think this will be a more effective long-term muscle relaxer and also will work to prevent seizures. Please continue the 300 mg morning and night of Lyrica/pregabalin You had been on tramadol 100 mg 3 times a day. This can cause seizures. Please decrease this to 50 mg only 3 times a day. If you can tolerate twice a day that would be even better. ED provider commented on CBD use: If your choosing to use marijuana, I would recommend using a hybrid blend rather than sativa only and use the highest CBD content. CBD can also help prevent seizures. THC does not. Prescriptions: No Action sulfasalazine 500 mg Tablet 1,500 mg PO BID 0RF leflunomide 20 mg Tablet 20 mg PO QPM 0RF levothyroxine 150 mcg Tablet 150 mcg PO QAM 0RF furosemide 40 mg tablet 40 mg PO QAM 0RF atorvastatin 20 mg tablet 20 mg PO QPM 0RF Humira Pen 40 mg/0.4 mL pen injector kit 40 mg Q2W 0RF lisinopril 40 MG tablet 40 mg PO QAM 0RF zolpidem 5 mg tablet 5 mg PO BEDTIME 0RF Label Comments: TAKE ONE TABLET BY MOUTH EVERY NIGHT NEEDED FOR SLEEP pregabalin 300 mg capsule 300 mg PO BID 0RF Label Comments: TAKE ONE CAPSULE BY MOUTH TWICE DAILY cyclobenzaprine 10 mg tablet 10 mg PO BID PRN (Reason: Back Pain) 0RF tramadol 50 mg tablet 50 mg PO TID 0RF Label Comments: TAKE ONE TABLET BY MOUTH EVERY EIGHT HOURS NEEDED FOR MODERATE PAIN trazodone 50 mg tablet 50 mg PO BEDTIME 0RF quetiapine 100 mg tablet 300 mg PO BEDTIME 0RF lithium carbonate 150 mg capsule 150 mg PO BID 0RF Referrals: Remington Izaguirre DO [Primary Care Provider] - Stand Alone Forms: Against Medical Advice Quality VTE Deep Vein Thrombosis/Pulmonary Embolism Present on Admission: No MIPS - Admit I confirm the patient?s Advance Care Plan is present, Code status is documented, Surrogate decision maker is in patient?s record [If Yes, STOP here]: Yes MIPS - DC The patient has current or prior documentation of left ventricular ejection fraction (LVEF) less than 40%, or moderate or severely depressed left ventricular systolic function.: No
== END 2021-10-06 22:05 | disposition left against medical advice (07) ==
PROVIDERS: Emergency Provider Emergency Medicine; PCP Family Medicine
DX: R56.9 Unspecified convulsions (principal); Z53.29 Procedure and treatment not carried out because of patient's decision for other reasons; F17.290 Nicotine dependence, other tobacco product, uncomplicated; Z79.899 Other long term (current) drug therapy
CPT/HCPCS: 36415; 99284; J1953

== ENCOUNTER 2021-11-11 20:06 | Emergency (ER) | payer OTHER, MEDICAID, SELFPAY ==
[2021-11-11 20:08] VITALS: BP 137/90; PULSE 91; RESP 20; TEMP 36.6; O2SAT 97
--- NOTE | 2021-11-12 02:26 | ED_ITS ---
HPI - Head Injury General Chief complaint: Head Injury Stated complaint: [facility] Time Seen by Provider: 11/11/21 20:09 Source: patient and police Mode of arrival: other History of Present Illness HPI Narrative: 46-year-old male daily smoker with history of fibromyalgia, depression, tachycardia presents with police requesting medical clearance for incarceration. He had hit his head on the wall earlier today on purpose. He takes no blood thinners and suffered no loss of consciousness. He is at his baseline and denies any headache, blurred vision, trouble speech. He has had no nausea or vomiting and denies any neck or back pain. He has no extremity numbness, tingling or weakness. Related Data Home Medications Medication Instructions Recorded Confirmed leflunomide 20 mg tablet 20 mg PO QPM 04/19/18 10/06/21 levothyroxine 150 mcg tablet 150 mcg PO QAM 04/19/18 10/06/21 sulfasalazine 500 mg tablet 1,500 mg PO BID 04/19/18 10/06/21 adalimumab 40 mg/0.4 mL 40 mg Q2W 07/31/18 10/06/21 subcutaneous pen kit atorvastatin 20 mg tablet 20 mg PO QPM 07/31/18 10/06/21 furosemide 40 mg tablet 40 mg PO QAM 07/31/18 10/06/21 lisinopril 40 mg tablet 40 mg PO QAM 07/31/18 10/06/21 lithium carbonate 150 mg capsule 150 mg PO BID 08/30/19 10/06/21 quetiapine 100 mg tablet 300 mg PO BEDTIME 08/30/19 10/06/21 trazodone 50 mg tablet 50 mg PO BEDTIME 08/30/19 10/06/21 cyclobenzaprine 10 mg tablet 10 mg PO BID PRN 10/06/21 10/06/21 pregabalin 300 mg capsule 300 mg PO BID 10/06/21 10/06/21 tramadol 50 mg tablet 50 mg PO TID 10/06/21 10/06/21 zolpidem 5 mg tablet 5 mg PO BEDTIME 10/06/21 10/06/21 Previous Rx's Medication Instructions Recorded diazepam 5 mg tablet 5 mg PO BID PRN #30 tab 10/07/21 Allergies Allergy/AdvReac Type Severity Reaction Status Date / Time atenolol Allergy Severe Anaphylaxis Verified 10/06/21 17:43 tocilizumab [From Actemra] Allergy Severe Anaphylaxis Verified 10/06/21 17:43 adhesive [ADHESIVE] Allergy Mild Verified 10/06/21 17:43 aspirin [ASPIRIN] AdvReac Unknown Verified 10/06/21 17:43 sumatriptan [From Imitrex] AdvReac Unknown Verified 10/06/21 17:43 Review of Systems Review of Systems Narrative: GENERAL: Denies chills, fatigue, malaise, fever, sweats. HEENT: Denies sinus pain, ear pain, sore throat, difficulty swallowing, dizziness. RESPIRATORY: Denies dyspnea, cough, wheezing, hemoptysis, sputum. CARDIOVASCULAR: Denies chest pain, palpitations, orthopnea, edema, GASTROINTESTINAL: Denies nausea, vomiting, abdominal pain, diarrhea, constipation, melena. : Denies dysuria, frequency, incontinence, hematuria, urinary retention. MUSCULOSKELETAL: denies weakness, joint pain, or bony pain SKIN: See HPI NEUROLOGIC: Denies weakness, headache, numbness, change in speech, confusion, seizures, incoordination. PSYCHIATRIC: No concerning psychosocial issues. 12 point review of systems is negative except for those stated above Patient History Medical History Depression DJD (degenerative joint disease), lumbar Fibromyalgia Hypertension Migraines Rheumatoid arthritis Seizure Surgical History Status post tonsillectomy and adenoidectomy Family History Mother Heart disease Lung disease Liver disease Father Medical history unknown Social History marital status: Smoking Status: Current every day smoker alcohol intake: current substance use type: does not use Smoking Status: Current every day smoker tobacco type: vaping alcohol intake frequency: other Substance Use Type: marijuana Exam Narrative Exam Narrative: GENERAL: [46 year old patient appears stated age. Well-developed patient, in mild distress. GCS 15 HEAD: Small contusion on central forehead, no hematoma or swelling, no evidence of depressed skull fracture, no laceration. EYES: Pupils equal round and reactive. No hyphema Extraocular motions intact. No scleral icterus. No injection or drainage. ENT: Nose without bleeding, purulent drainage. No nasal septal hematoma Throat without erythema, tonsillar hypertrophy or exudate. Airway patent. No hemotympanum NECK: Trachea midline. Non tender CARDIOVASCULAR: Regular rate and rhythm without murmurs, gallops, or rubs. RESPIRATORY: Clear to auscultation. Breath sounds equal bilaterally. No wheezes, rales, or rhonchi. GASTROINTESTINAL: Abdomen soft, non-tender, nondistended. EXTREMITIES: No edema or joint tenderness. BACK: Nontender without deformity or crepitance. No flank tenderness. NEURO: AOx3. SKIN: No rash or erythema of visible areas Initial Vital Signs Initial Vital Signs: Vital Signs Temperature 97.9 F 11/11/21 20:08 Pulse Rate 91 H 11/11/21 20:08 Respiratory Rate 20 11/11/21 20:08 Blood Pressure 137/90 11/11/21 20:08 Pulse Oximetry 97 11/11/21 20:[address] [place] [address] Head Rule Age <16 years old: No Patient on blood thinners: No Seizure after injury: No Exclusion: Patient NOT Excluded, Proceed to next steps GCS < 15 at 2 hr post trauma: No Suspected open or depressed skull fracture: No Any sign of basilar skull fracture (hemotympanum, raccoon eyes, Ortiz's sign, CSF fabio-/rhinorrhea): No Two or more episodes of vomiting: No Age greater or equal to 65 years: No Retrograde amnesia to the event greater or equal to 30 min: No Dangerous Mechanism (pedestrian vs. mv, occupant ejected from mv, fall from >3 ft or > 5 stairs): No Recommendation: CT unnecessary Nexus Score for C-Spine Focal Neurologic deficit present: No Midline spinal tenderness present: No Altered level of conciousness present: No Intoxication present: No Distracting Injury Present: No Nexus Criteria for C-spine: 0 Course Vital Signs Vital signs: Vital Signs - 8 hr 11/11/21 20:08 Temperature 97.9 F Pulse Rate 91 H Respiratory Rate 20 Blood Pressure 137/90 Pulse Oximetry 97 Discharge Plan Departure Patient Disposition: Home Clinical Impression: Contusion of forehead, Medical clearance for incarceration Instructions: DI for Contusion Activity Restrictions/Additional Instructions: *You have been diagnosed with [minor forehead contusion, no evidence of concussion or internal head injury. Medical clearance for incarceration *What to do: *Please continue to take your regular medications as directed. [ x] No new medications given *If you do not have a primary care provider please contact [facility] Resource line at [phone]. They will ask some questions about your medical history and help get you set up with a doctor in the community. *Return to ER if you should have any new, worsening or concerning symptoms, such as [ fever > 101F, neck pain or stiffness, vomiting, confusion, seizure, f ocal weakness, vision change, speech deficit or other concerning symptoms ] Prescriptions: No Action sulfasalazine 500 mg Tablet 1,500 mg PO BID 0RF leflunomide 20 mg Tablet 20 mg PO QPM 0RF levothyroxine 150 mcg Tablet 150 mcg PO QAM 0RF furosemide 40 mg tablet 40 mg PO QAM 0RF atorvastatin 20 mg tablet 20 mg PO QPM 0RF Humira Pen 40 mg/0.4 mL pen injector kit 40 mg Q2W 0RF lisinopril 40 MG tablet 40 mg PO QAM 0RF zolpidem 5 mg tablet 5 mg PO BEDTIME 0RF Label Comments: TAKE ONE TABLET BY MOUTH EVERY NIGHT NEEDED FOR SLEEP pregabalin 300 mg capsule 300 mg PO BID 0RF Label Comments: TAKE ONE CAPSULE BY MOUTH TWICE DAILY cyclobenzaprine 10 mg tablet 10 mg PO BID PRN (Reason: Back Pain) 0RF tramadol 50 mg tablet 50 mg PO TID 0RF Label Comments: TAKE ONE TABLET BY MOUTH EVERY EIGHT HOURS NEEDED FOR MODERATE PAIN diazepam 5 mg tablet 5 mg PO BID PRN (Reason: muscle spasm) Qty: 30 0RF trazodone 50 mg tablet 50 mg PO BEDTIME 0RF quetiapine 100 mg tablet 300 mg PO BEDTIME 0RF lithium carbonate 150 mg capsule 150 mg PO BID 0RF Referrals: Remington Izaguirre DO [Primary Care Provider] -
== END 2021-11-11 20:22 | disposition home or self-care (01) ==
LOC: ED 20:28
PROVIDERS: Emergency Provider Emergency Medicine; PCP Family Medicine
DX: Z02.89 Encounter for other administrative examinations (principal); S00.83XA Contusion of other part of head, initial encounter; W22.8XXA Striking against or struck by other objects, initial encounter
CPT/HCPCS: 99281

== ENCOUNTER 2021-12-23 12:44 | Emergency (ER) | payer OTHER, MEDICAID, SELFPAY ==
[2021-12-23 13:08] VITALS: BP 142/84; PULSE 94; RESP 20; TEMP 37.7; O2SAT 94; BMI 39.5
[2021-12-23 14:10] LABS: Influenza A - CEPHEID Flu A NEGATIVE (NEGATIVE); Influenza B - CEPHEID Flu B NEGATIVE (NEGATIVE)
[2021-12-23 14:14] LABS: COVID-19 CEPHEID PCR (VTM/NP) POSITIVE (Negative)
[2021-12-23 14:45] VITALS: PULSE 100; RESP 18; TEMP 37.4; O2SAT 93
--- NOTE | 2021-12-23 17:25 | ED.URI ---
HPI - URI/Sore Throat <Asia Romero PA-C - Last Filed: 12/23/21 17:33> General Chief Complaint: Upper Respiratory Symptoms Stated Complaint: possSakina arreguin Time Seen by Provider: 12/23/21 15:03 Source: patient Mode of arrival: Ambulatory History of Present Illness HPI Narrative: Patient is a 46-year-old male presenting with upper respiratory symptom for the past 3 days. He reports a sore throat, fatigue, chest congestion, and mild cough. He denies any shortness of breath, headache, dizziness, ear pain, nasal congestion, fever, or nausea. He has not taken any medication for symptom management. Related Data Home Medications Medication Instructions Recorded Confirmed leflunomide 20 mg tablet 20 mg PO QPM 04/19/18 10/06/21 levothyroxine 150 mcg tablet 150 mcg PO QAM 04/19/18 10/06/21 sulfasalazine 500 mg tablet 1,500 mg PO BID 04/19/18 10/06/21 adalimumab 40 mg/0.4 mL 40 mg Q2W 07/31/18 10/06/21 subcutaneous pen kit atorvastatin 20 mg tablet 20 mg PO QPM 07/31/18 10/06/21 furosemide 40 mg tablet 40 mg PO QAM 07/31/18 10/06/21 lisinopril 40 mg tablet 40 mg PO QAM 07/31/18 10/06/21 lithium carbonate 150 mg capsule 150 mg PO BID 08/30/19 10/06/21 quetiapine 100 mg tablet 300 mg PO BEDTIME 08/30/19 10/06/21 trazodone 50 mg tablet 50 mg PO BEDTIME 08/30/19 10/06/21 cyclobenzaprine 10 mg tablet 10 mg PO BID PRN 10/06/21 10/06/21 pregabalin 300 mg capsule 300 mg PO BID 10/06/21 10/06/21 tramadol 50 mg tablet 50 mg PO TID 10/06/21 10/06/21 zolpidem 5 mg tablet 5 mg PO BEDTIME 10/06/21 10/06/21 Previous Rx's Medication Instructions Recorded diazepam 5 mg tablet 5 mg PO BID PRN #30 tab 10/07/21 Allergies Allergy/AdvReac Type Severity Reaction Status Date / Time atenolol Allergy Severe Anaphylaxis Verified 10/06/21 17:43 tocilizumab [From Actemra] Allergy Severe Anaphylaxis Verified 10/06/21 17:43 adhesive [ADHESIVE] Allergy Mild Verified 10/06/21 17:43 aspirin [ASPIRIN] AdvReac Unknown Verified 10/06/21 17:43 sumatriptan [From Imitrex] AdvReac Unknown Verified 10/06/21 17:43 Review of Systems <Asia Romero PA-C - Last Filed: 12/23/21 17:33> Review of Systems Narrative: GENERAL: See HPI. HEENT: See HPI. RESPIRATORY: See HPI. CARDIOVASCULAR: Denies chest pain, pressure, palpitations, or edema GASTROINTESTINAL: Denies, nausea, vomiting, changes in bowel movements, or abdominal pain : Denies dysuria, frequency, hematuria, or flank pain MUSCULOSKELETAL: Denies weakness, arthralgias, or myalgias SKIN: No rash, pruritis, or erythema NEUROLOGIC: Denies weakness, dizziness, headache, numbness, tingling or confusion PSYCHIATRIC: No concerning psychosocial issues. Patient History <Asia Romero PA-C - Last Filed: 12/23/21 17:33> Medical History Depression DJD (degenerative joint disease), lumbar Fibromyalgia Hypertension Migraines Rheumatoid arthritis Seizure Surgical History Status post tonsillectomy and adenoidectomy Family History Mother Heart disease Lung disease Liver disease Father Medical history unknown Social History marital status: Smoking Status: Current every day smoker alcohol intake: current substance use type: does not use Smoking Status: Current every day smoker tobacco type: vaping alcohol intake frequency: other Substance Use Type: marijuana Exam <Asia Romero PA-C - Last Filed: 12/23/21 17:33> Narrative Exam Narrative: GENERAL: 46 year old patient appears stated age. Well-developed patient, in mild distress. HEAD: Atraumatic. Normocephalic. EYES: Pupils equal round and reactive. Extraocular motions intact. No scleral icterus. No injection or drainage. ENT: Nose without bleeding, purulent drainage. Throat without erythema, tonsillar hypertrophy or exudate. Airway patent. NECK: Trachea midline. Non tender CARDIOVASCULAR: Regular rate and rhythm without murmurs, gallops, or rubs. RESPIRATORY: Clear to auscultation. Breath sounds equal bilaterally. No wheezes, rales, or rhonchi. GASTROINTESTINAL: Abdomen soft, non-tender, nondistended. EXTREMITIES: No edema or joint tenderness. BACK: Nontender without deformity or crepitance. No flank tenderness. NEURO: AOx3. SKIN: No rash or erythema of visible areas Initial Vital Signs Initial Vital Signs: Vital Signs Temperature 100 F H 12/23/21 13:08 Pulse Rate 94 H 12/23/21 13:08 Respiratory Rate 20 12/23/21 13:08 Blood Pressure 142/84 H 12/23/21 13:08 Pulse Oximetry 94 12/23/21 13:08 Course <Asia Romero PA-C - Last Filed: 12/23/21 17:33> Orders Ordered: ED Orders 12/23/21 13:12 Covid-19 + FLU A/B by PCR Stat Vital Signs Vital signs: Vital Signs - 8 hr 12/23/21 13:08 12/23/21 14:45 Temperature 100 F H 99.3 F Pulse Rate 94 H 100 H Respiratory Rate 20 18 Blood Pressure 142/84 H Pulse Oximetry 94 93 MDM - URI/Sore Throat <Asia Romero PA-C - Last Filed: 12/23/21 17:33> Lab Data Labs: Lab Results 12/23/21 Range/Units 13:12 SARS-CoV-2 (PCR) Positive H (Negative) Influenza A (RT-PCR) Flu a negative (NEGATIVE) Influenza B (RT-PCR) Flu b negative (NEGATIVE) MDM Narrative Medical decision making narrative: Patient is a 46-year-old male presenting with upper respiratory symptoms for the past 3 days. His COVID-19 test came back positive. His vitals are stable and his lungs are clear to auscultation bilaterally. Patient was encouraged to drink plenty of fluids, rest, use a humidifier or steam shower, and take ibuprofen as needed. He was also educated on proper COVID-19 isolation protocol. He was instructed to return to the ER with worsening shortness of breath, chest pain, dizziness, or any other concerning symptoms. Findings and discharge diagnosis discussed with patient/family followed by verbalization of understanding Return precautions discussed with patient/family whom verbalize understanding. Discharge Plan Departure Patient Disposition: Home Clinical Impression: COVID-19 Instructions: DI for COVID-19 (Suspected or Confirmed ) Activity Restrictions/Additional Instructions: *You have been diagnosed with COVID-19 viral illness. You should rest, drink plenty of fluids, use a humidifier or steam shower, and take ibuprofen as needed. If you experience worsening shortness of breath, dizziness, or any other concerning symptoms please return back to the ER. *What to do: * per recommendations from the CDC and the [facility] Department of Health * stay home except to get medical care. Restrict activities outside your home, except for getting medical care. Do not go to work, school, or public areas. Avoid using public transportation, ride sharing, or taxis. * separate yourself from other people in your home. * call ahead before visiting your doctor * Wear a facemask * Cover your coughs and sneezes * Clean your hands often * Avoid sharing household items * Clean all high-touch services every day * Monitor your symptoms and seek prompt medical attention if your illness is worsening, particularly with difficulty in breathing. You may discontinue your isolation when: 1. You have been fever-free for at least 24 hours without the use of fever reducing medication, AND 2. Your symptoms are getting better, AND 3. At least 5 days have passed since symptoms first appeared 4. If you have fever, continue to stay home until fever resolves Individuals with laboratory confirmed COVID-19 who have not had any symptoms may discontinue home isolation when at least 5 days have passed since the date of their first COVID-19 diagnostic test and have had no subsequent illness You should notifiy any friends and family that have been in close contact *If up to date on COVID Vaccines, then they do not need to quarantine unless symptoms develop. Get tested on day 5 (or sooner if symptoms develop). Take precautions and watch for symptoms until day 10 *If NOT up to date on COVID Vaccines, then CDC recommends quarantine for at least 5 full days. Wear a well fitted mask at home if you must be around others. If they develop symptoms they should get tested. If they remain asymptomatic they should get tested on day 5. They should take precautions and monitor for symptoms until day 10. Prescriptions: No Action sulfasalazine 500 mg Tablet 1,500 mg PO BID 0RF leflunomide 20 mg Tablet 20 mg PO QPM 0RF levothyroxine 150 mcg Tablet 150 mcg PO QAM 0RF furosemide 40 mg tablet 40 mg PO QAM 0RF atorvastatin 20 mg tablet 20 mg PO QPM 0RF Humira Pen 40 mg/0.4 mL pen injector kit 40 mg Q2W 0RF lisinopril 40 MG tablet 40 mg PO QAM 0RF zolpidem 5 mg tablet 5 mg PO BEDTIME 0RF Label Comments: TAKE ONE TABLET BY MOUTH EVERY NIGHT NEEDED FOR SLEEP pregabalin 300 mg capsule 300 mg PO BID 0RF Label Comments: TAKE ONE CAPSULE BY MOUTH TWICE DAILY cyclobenzaprine 10 mg tablet 10 mg PO BID PRN (Reason: Back Pain) 0RF tramadol 50 mg tablet 50 mg PO TID 0RF Label Comments: TAKE ONE TABLET BY MOUTH EVERY EIGHT HOURS NEEDED FOR MODERATE PAIN diazepam 5 mg tablet 5 mg PO BID PRN (Reason: muscle spasm) Qty: 30 0RF trazodone 50 mg tablet 50 mg PO BEDTIME 0RF quetiapine 100 mg tablet 300 mg PO BEDTIME 0RF lithium carbonate 150 mg capsule 150 mg PO BID 0RF Referrals: Remington Izaguirre DO [Primary Care Provider] -
== END 2021-12-23 15:40 | disposition home or self-care (01) ==
PROVIDERS: Emergency Medicine; Emergency Provider Physician Assistant; PCP Family Medicine
DX: U07.1 COVID-19 (principal)
CPT/HCPCS: 87635; 99281; 99282; C9803